=== PATIENT | female | born 1985 | race Caucasian/White ===

== ENCOUNTER 2024-09-11 09:00 | Emergency (ER) | payer OTHER, SELFPAY ==
--- NOTE | ~2024-09-11 | CT_ITS ---
EXAMINATION: CT brain wo con DATE: 09/11/2024 11:11 INDICATION: Migraine headache TECHNIQUE: Computed tomography (CT) of the head was performed without intravenous contrast. Sagittal and coronal reconstructions were performed. The mA was adjusted according to patient size. Iterative reconstruction technique was employed. The dose-length product was 681.00 mGy-cm. COMPARISON: None FINDINGS: No acute intracranial hemorrhage, acute infarction or abnormal extra axial fluid collection. Ventricl es are normal and symmetric. No mass/mass effect. The orbits and mastoid air cells are normal. Mild m ucosal thickening in the paranasal sinuses with likely dependent layering mucus in the left sphenoid sinus. IMPRESSION: 1. Normal brain. 2. Sinus disease dependent mucus in the left sphenoid sinus. Reviewed, dictated and finalized at location A. [employer]
--- OUTSIDE RECORDS SUMMARY | 2024-09-11 09:03 | XMS_ITS | Data Portability ---
Author Organization [facility] Address [address] [place] [address] Care Team Providers Care Developmental Behavioral Physician Name Role Phone BRUCE NOEL Primary Care Provider Unavailab le Assessment Encounter Date Assessment Date Assessment LastModified by Organization Details LastModified Time 11/03/2023 11/03/2023 Recent Labs reviewed on the pt's portal. Not available 11/15/2023 10:22:38 Plan of Treatment Reminders Order Date Submit Date Provider Last Modified By Organization Details Last Modified Time Details Appointments None recorde d. Lab None recorde d. Referral None recorde d. Procedures None recorde d. Surgeries None recorde d. Imaging MRI, brain, w/wo contras t - Errol snyder obtaine d on peer to peer discuss ion. errol snyder # [phone] good 07/20 through 01/16/25 Dx code R51.9 2023 024 [email or web address] [facility], [address], [address] [address], [place], [address], 5 12:27:34 Medication Orders Zepboun d 2.5 mg/0.5 mL subcuta neous pen injecto r 2023 [facility]24 [facility] [address] [facility], [place], [address], 4 14:51:31 metroni dazole 0.75 % topical cream 2023 [facility] [address] [place], [address], 4 15:17:19 Patient TargetsNo targets recorded. Patient Instructions Encounter Date Encounter Id Patient Instructions Last Modified By Organization Details Last Modified Time 11/03/2023 [id number] A healthy lifestyle: care instructions Not available 11/15/2023 10:22:21 Reason for Referral None Reported. Problems Name Problem SNOMED Code Status Onset Date Resolution Date Notes Provider Name and Address Organization Details Recorded Time Polycystic ovary syndrome 580939197 Active 2023 LIAT Schwarz Attn: Accountin g,[address], [place], [address], [facility] 4 10:22:52 Attention deficit hyperactivity disorder 331220659 Active 2023 LIAT Schwarz Attn: Accountin g,[address] [facility], [place], [address], [place] - [facility] 4 10:22:54 Hypothyroidism 63493445 Active 2023 LIAT Schwarz Attn: Accountin g,[address], [place], [address], [place] [facility] 4 10:22:55 Bipolar II disorder 72003945 Active 2023 LIAT Schwarz Attn: Accountin g,[address], [place], [address], [place] - [facility] 4 10:22:56 Mood disorder 30963805 Active 2023 LIAT Schwarz Attn: Accountin g,[address], [place], [address], [place] [facility] 4 10:22:58 Long-term drug therapy Active 2023 LIAT Schwarz Attn: Accountin g,[address], [place], [address], [place] [facility] 4 10:22:59 Obesity 605443484 Active 2023 LIAT Schwarz Attn: Accountin g,[address], [place], [address], [place] [facility] 4 10:23:01 Body mass index 40+ - severely obese 919470890 Active 2023 LIAT Schwarz Attn: Accountin g,[address], [place], [address], [place] - [facility] 4 10:23:02 Headache disorder 365429567 Active 2023 LIAT Schwarz Attn: Accountin g,[address], [place], [address], [place] [facility] 4 15:51:29 Congenital hydrocephalus 78240976 Active 2023 LIAT Schwarz Attn: Accountin g,[address] [facility], [place], [address], [place] - [facility] 4 15:51:30 Problem Notes None recorded. Procedures Surgical History Date Name Laterality Status Provider Name and Address Organization Details Recorded Time Eye Surgery completed Sean asif [place] - [facility] 11/03/2023 17:18:15 LEEP completed Sean Cervantes [place] - [facility] 11/03/2023 17:18:20 Imaging Results None recorded. Procedure Notes None recorded. Medical Equipment None Reported. Allergies Allergen ID Allergen Name Allergen Category Reaction Reaction Severity Criticality Documentation Date Start Date Code Code System Note Provider Name and Address Organization Details Recorded Time 022599 Product containin g penicilli n and antibioti c (product) medicatio n Not available Not available Not available 11/03/2023 50833 05 SNOMED Not Available Not Available Not Available 360585 guaifenes in / pseudoeph edrine medicatio n Not available Not available Not available 11/03/2023 24887 9 RxNorm Not Available Not Available Not Available Medications Name Sig Start Date Stop Date Status Note LastModified by Organization Details LastModified Time vitamin d3 (tom) 50mcg cap TAKE 2 CAPSULES BY MOUTH IN THE MORNING active Not Available Not Available No t Available lamotrigin e 150 mg tablet TAKE 1 TABLET BY MOUTH EVERY DAY AT BEDTIME FOR 30 DAYS 11/02 completed Not Available Not Available Not Available lamotrigin e 200 mg tablet Take 1 tablet twice a day by oral route. active ONCE daily Not Available Not Available Not Available cetirizine 10 mg tablet Take 1 tablet every day by oral route for 90 days. active Not Available Not Available No t Available azithromyc in 250 mg tablet 11/02 completed Not Available Not Available Not Available fluconazol e 150 mg tablet TAKE 1 TABLET BY MOUTH ONCE DAILY DIRECTED FOR 1 DAY 07/20 completed Not Available Not Available Not Available Synthroid 100 mcg tablet Take 1 tablet every day by oral route. active Not Available Not Available No t Available sertraline 100 mg tablet Take 1 tablet every day by oral route. 07/20 completed Not Available Not Available Not Available phentermin e 37.5 mg tablet TAKE 1 TABLET BY MOUTH EVERY DAY 11/02 completed Not Available Not Available Not Available ciprofloxa los 500 mg tablet TAKE 1 TABLET BY MOUTH EVERY 12 HOURS 07/20 completed Not Available Not Available Not Available sulfametho xazole 800 mg-trimeth oprim 160 mg tablet 07/20 completed Not Available Not Available Not Available liothyroni ne 5 mcg tablet twice daily 07/20 completed Not Available Not Available Not Available doxycyclin e monohydrat e 100 mg tablet Take 1 tablet every 12 hours by oral route for 7 days. active Not Available Not Available No t Available triamcinol one acetonide 0.1 % topical cream APPLY CREAM TOPICALLY TO THE AFFECTED AREAS OF NOSE TWICE DAILY 07/20 completed Not Available Not Available Not Available alprazolam 0.25 mg tablet TAKE 1 TABLET BY MOUTH TWICE DAILY NEEDED 07/20 completed Not Available Not Available Not Available dextroamph etamine-am phetamine ER 20 mg 24hr capsule,ex tend release TAKE 1 CAPSULE BY MOUTH IN THE MORNING FOR 30 DAYS 07/20 completed Not Available Not Available Not Available cyanocobal alexis (vit B-12) 1,000 mcg/mL injection solution INJECT 1 ML SUBCUTANE OUS IN THE MORNING EVERY WEEK active Not Available Not Available No t Available oseltamivi r 75 mg capsule TAKE 1 CAPSULE BY MOUTH TWICE DAILY FOR 5 DAYS 11/02 completed Not Available Not Available Not Available ferrous sulfate 325 mg (65 mg iron) tablet TAKE 1 TABLET BY MOUTH EVERY DAY AT 12PM 11/02 completed Not Available Not Available Not Available buspirone 10 mg tablet Take 1 tablet 3 times a day by oral route as needed for 90 days. active Not Available Not Available No t Available metronidaz ole 0.75 % topical cream APPLY A THIN LAYER TO THE nose daily as needed active Not Available Not Available No t Available lidocaine HCl 2 % mucosal solution SWISH, GARGLE, AND SPIT 5ML FOUR TIMES DAILY NEEDED FOR PAIN 11/02 completed Not Available Not Available Not Available dextroamph etamine-am phetamine ER 10 mg 24hr capsule,ex tend release TAKE 1 CAPSULE BY MOUTH IN THE MORNING 07/20 completed Not Available Not Available Not Available ergocalcif nivia (vitamin D2) 1,250 mcg (50,000 unit) capsule TAKE 1 CAPSULE BY MOUTH EVERY WEEK DIRECTED 11/02 completed Not Available Not Available Not Available cefdinir 300 mg capsule TAKE 1 CAPSULE BY MOUTH TWICE DAILY FOR 7 DAYS 07/20 completed Not Available Not Available Not Available methylphen idate ER 18 mg tablet,ext ended release 24 hr TAKE 1 TABLET BY MOUTH IN THE MORNING FOR 30 DAYS 07/20 completed Not Available Not Available Not Available metformin ER 500 mg tablet,ext ended release 24 hr TAKE 1 TABLET BY MOUTH ONCE DAILY WITH SUPPER 07/20 completed Not Available Not Available Not Available sertraline 50 mg tablet TAKE 1/2 TABLET BY MOUTH FOR 1 WEEK, THEN TAKE 1 TABLET DAILY 11/02 completed Not Available Not Available Not Available methylphen idate ER 36 mg tablet,ext ended release 24 hr TAKE 1 TABLET BY MOUTH ONCE DAILY IN THE MORNING 07/20 completed Not Available Not Available Not Available spironolac tone 50 mg tablet TAKE 2 TABLETS BY MOUTH IN THE MORNING active Not Available Not Available No t Available atomoxetin e 25 mg capsule TAKE 1 CAPSULE BY MOUTH EVERY MORNING X 1 WEEK, THEN INCREASE TO 40MG 11/02 completed Not Available Not Available Not Available atomoxetin e 40 mg capsule TAKE 1 CAPSULE BY MOUTH EVERY DAY IN THE MORNING 07/20 completed Not Available Not Available Not Available nitrofuran toin monohydrat e/macrocry stals 100 mg capsule TAKE 1 CAPSULE BY MOUTH EVERY 12 HOURS 07/20 completed Not Available Not Available Not Available Janine-D 24 Hour 180 mg-240 mg tablet,ext ended release TAKE 1 TABLET BY MOUTH ONCE DAILY 11/02 completed Not Available Not Available Not Available atomoxetin e 80 mg capsule 07/20 completed Not Available Not Available Not Available atomoxetin e 100 mg capsule Take 1 capsule every day by oral route. 07/20 completed Not Available Not Available Not Available desvenlafa xine succinate ER 50 mg tablet,ext ended release 24 hr TAKE 1 TABLET BY MOUTH ONCE DAILY 07/20 completed Not Available Not Available Not Available desvenlafa xine succinate ER 100 mg tablet,ext ended release 24 hr Take by oral route for 90 days. active Not Available Not Available No t Available BD Insulin Syringe Ultra-Fine 1 mL 31 gauge x 5/16 INJECT B12 UNDER THE SKIN ONCE WEEKLY X 90 DAYS active Not Available Not Available No t Available vitamin D3 2,000 unit-folic acid 1 mg tablet Take by oral route. 11/02 completed Not Available Not Available Not Available Qelbree 200 mg capsule,ex tended release Take 1 capsule every day by oral route for 90 days. active Not Available Not Available No t Available Wegovy 1 mg/0.5 mL subcutaneo us pen injector INJECT 1 MG SUBCUTANE OUSLY WEEKLY DIRECTED 11/02 completed Not Available Not Available Not Available Wegovy 0.5 mg/0.5 mL subcutaneo us pen injector INJECT THE CONTENTS OF 1 PEN UNDER THE SKIN ONCE WEEKLY 11/02 completed Not Available Not Available Not Available Zepbound 5 mg/0.5 mL subcutaneo us pen injector Inject 5 mg every week by subcutane ous route. 07/20 completed Not Available Not Available Not Available Zepbound 2.5 mg/0.5 mL subcutaneo us pen injector 2.5mg sq weekly dosing 07/20 completed Not Available Not Available Not Available Zepbound 7.5 mg/0.5 mL subcutaneo us pen injector Inject by subcutane ous route for 28 days. 2023 active Not Available Not Available Not Avai lable Vitals Date Recorded Body height Respiratory rate Body mass index (BMI) Body weight Oxygen saturation Oxygen saturation in Arterial blood by Pulse oximetry Heart rate Systolic blood pressure Diastolic blood pressure Provider Name and Address Organization Details Last Updated DateTime 4 157.48 cm 18 /min 40.1 kg/m2 91044.7 3 g 99 % 99 % 98 /min 128 mm[Hg] 88 mm[Hg] Sean Cervantes MA [facility] 10:56:37 Date Recorded Systolic blood pressure Diastolic blood pressure Provider Name and Address Organization Details Last Updated DateTime 11/03/2023 120 mm[Hg] 80 mm[Hg] LIAT Schwarz Attn: Accounting,[address] [place], [address], [facility] 11/03/2023 11:31:45 Date Recorded Body height Body mass index (BMI) Body weight Respiratory rate Oxygen saturation Oxygen saturation in Arterial blood by Pulse oximetry Heart rate Systolic blood pressure Diastolic blood pressure Provider Name and Address Organization Details Last Updated DateTime 4 157.48 cm 47.4 kg/m2 848806. 42 g 18 /min 99 % 99 % 96 /min 126 mm[Hg] 82 mm[Hg] Sean Cervantes MA [facility] 14:56:00 Date Recorded Systolic blood pressure Diastolic blood pressure Provider Name and Address Organization Details Last Updated DateTime 07/20/2024 120 mm[Hg] 80 mm[Hg] LIAT Schwarz Attn: Accounting,[address] [place], [address], [facility] 07/20/2024 15:20:02 Social History Question Answer Notes LastModified by Organizat ion Details LastModified Time Tobacco Smoking Status Former Smoker Sean Cervantes MA [facility], [facility] 11/03/2023 10:51:37 Do You Have An Advance Directive? No Information not available 11/03/2023 What Is Your Level Of Alcohol Consumption? Occasional Information not available 11/03/2023 Are You Blind Or Do You Have Difficulty Seeing? No Glasses Information not available 11/03/2023 What Is Your Level Of Caffeine Consumption? Moderate Information not available 11/03/2023 In The 14 Days Before Symptom Onset, Have You Had Close Contact With A Laboratory-confi rmed COVID-19 While That Case Was Ill? No Information not available 11/03/2023 In The 14 Days Before Symptom Onset, Have You Had Close Contact With A Person Who Is Under Investigation For COVID-19 While That Person Was Ill? No Information not available 11/03/2023 Have You Been To An Area Known To Be High Risk For COVID-19? No Information not available 11/03/2023 Are You Currently Employed? Yes Information not available 11/03/2023 Are You Deaf Or Do You Have Serious Difficulty Hearing? No Information not available 11/03/2023 What Type Of Diet Are You Following? 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 No Information not available 11/03/2023 What Was The Date Of Your Most Recent Tobacco Screening? 07/20/2024 Information not available 07/20/2024 What Is Your Current Pack Years? 10packyears Information not available 11/03/2023 Do You Use Your Seat Belt Or Car Seat Routinely? Yes Information not available 11/03/2023 Do You Have Smoke And Carbon Monoxide Detectors In Your Home? Yes Information not available 11/03/2023 At What Age Did You Start Smoking Tobacco? 15 Information not available 11/03/2023 How Much Tobacco Do You Smoke? No Information not available 11/03/2023 Do You Feel Stressed (tense, Restless, Nervous, Or Anxious, Or Unable To Sleep At Night)? [id number] Information not available 11/03/2023 Do You Use Any Illicit Or Recreational Drugs? No Former- Thc Information not available 11/03/2023 Do You Use Sunscreen Routinely? Yes Information not available 11/03/2023 Has Tobacco Cessation Counseling Been Provided? No Information not available 11/03/2023 How Many Years Have You Smoked Tobacco? 10 Information not available 11/03/2023 Do You Or Have You Ever Used Any Other Forms Of Tobacco Or Nicotine? No Information not available 11/03/2023 Sex: Female Functional Status Question Answer Note LastModified by Organizat ion Details LastModified Time Are you able to care for yourself? Yes Information not available 11/03/2023 What is your exercise level? Occasional Information not available 11/03/2023 Mental Status None recorded. Family History Relationship Description Onset Age of this Age Resolved Age Notes LastModified by Organization Details LastModified Time Mother Depressive disorder [email or web address] Not available 2023 17:18:35 Mother Disorder of thyroid gland tcarterma Not available 2023 17:18:43 Mother Hypertensive disorder tcarterma Not available 2023 17:18:49 Mother Migraine tcarterma Not availabl e 11/03/2023 17:18:57 Sister Depressive disorder tcarterma Not available 2023 17:18:35 Sister Disorder of thyroid gland tcarterma Not available 2023 17:18:43 Medical History Condition Response Coronary Artery Disease N Other N High Blood Pressure N Atrial Fibrillation N Kidney or Bladder Problems N Thyroid Problems Y GI Problems N Depression Y COPD N Blood Clots N Skin Problems N Anemia N Heart Attack ([place]) N Anxiety Disorder Y Diabetes N Muscle, Joint, or Bone Problems N Seizures/Epilepsy N Acid Reflux (GERD) N Cancer N Stroke N Asthma Y Allergies Y High Cholesterol N Hepatitis N Liver Disease N Headaches N Heart Failure N Osteoporosis N Gynecological History Statement/Question Response Flow Moderate Date of LMP 10/05/2023 Menses Monthly Y Duration of Flow (days) 5 Current Control Method None LMP Definite Obstetrics History GPAL:G 0 P 0 0 0 0 Immunizations Vaccine Type Date Status Note Provider Nam e and Address Organization Details Recorded Time Influenza, split virus, quadrivalent, preservative 8 completed Sean Cervantes [place] null, [place] - [facility] 07/20/2024 14:49:57 Tdap 12/12/201 5 completed Sean Cervantes MA [facility] 07/20/2024 14:49:57 Past Encounters Encounter ID Performer Location Encounter Start Date Encounter Closed Date Diagnosis/Indication Diagnosis SNOMED-CT Code Diagnosis ICD10 Code Diagnosis Note [id number] LIAT Schwarz [facility] [employer] [address] [place] [address] 11/03/2023 10:38:42 11/03/2023 11:33:36 Adult health examination 648960063 Z00.01 new patient wellness exam completed Polycystic ovary syndrome 567411457 E28.2 managed with diet, exercise, and remote hx of GLP injectable therapy. Attention deficit hyperactivity disorder 064278043 F90.9 stable on atomoxetin e 100mg daily with jean murcia. Hypothyroidism 55461674 E03.9 UTD on labs and stable on synthroid 100mcg daily and liothyroni ne 5mcg bid. managed by Endocrine. Long-term drug therapy 317172930 Z79.899 all labs are currently UTD with endocrine. Body mass index 40+ - severely obese 217626617 Z68.41 start zepbound injectable therapy as directed with titration up as tolerated per new monthly orders. no personal or family hx of Medullary thyroid cancer or MEN conditions . Obesity 159703003 E66.9 discussed healthy diet, exercise, controllin g carbohydra sharri and added sugars in the diet Mood disorder 59931537 F 39 stable on lamictal 200mg bid and sertraline 100mg daily. managed by jean hess Bipolar II disorder 8322 5003 F31.81 stable on lamictal 200mg bid. managed by psychiatrclaudy hess [id number] LIAT Schwarz [facility] [employer] [address] [place] [address] 07/20/2024 14:33:43 07/20/2024 15:57:16 Congenital hydrocephalus 18997524 Q03.9 hx of congenital hydrocepha jay, pt was told she has shunt. Headache disorder 841946 009 R51.9 hx of hydrocepha jay. shunt in place. Vomiting 304470660 R11.1 0 Two episodes of vomiting with headache thus far since the headache disorder has developed. Erythematous rash 250123 004 R21 trial of metronidaz ole cream to the nose area daily to see if this is rosacea related. Health Concerns Section Related Observation LastModified by Organization Detai ls LastModified Time None Recorded Concern Status LastModified by Organization Details LastModified Time None Recorded Advance Directives Directive N: Payers Encounter Date Sequence Insurance Name Policy Number Policy Patiño Covered Member ID Patiño Member ID Guarantor Name 11/03/2023 1 [facility] [id number] Alka Albert [id number] 2 Alka Albert 07/20/2024 1 [facility] [id number] Alka Albert [id number] Alka Albert Notes Date Note Type Note Provider Name and Address Organization Details Recorded Time 11/03/2023 text/html Asthma F/UReport ed bypatient.Notes:stable . no c/o. only acts up with acute illness. uses albuterol then PRNGeneric HPI TemplateReported bypatient.Notes:PCOS hx. Lost 80 pounds , most weight loss was on mounjaro, then wegovy and then insurance stopped covering so she's been off medication since March last year. She just cannot lose weight and she's gained 20 pounds. working out 1.5 hours several times a week and diet is very consistent and mindful of carbs, sugars, calories.ThyroidReport ed bypatient.Notes:on dual supplement therapy with Dr. Dowling (endocrine). Synthroid and liothyronine Bipolar /mood disorder: managed on medications from psychiatrist. routine f/u. she is feeling stable on her regimen without complaints. ADHD hx: pt is taking atomoxetine therapy for non-stimulant option therapy. LIAT Schwarz Attn: Accounting[address] [place], [address], [place] [facility] 11/15/2023 10:23:16 07/20/2024 text/html HeadacheReported bypatient.Notes:migrai anisha, States that she has never had them has been having reoccurring migraines alot lately, No pressure in eyes. More in the top of her head/ some nausea w it, She can take otc meds and nothing has helped, has vomited 2x with it. Patient reports that she had congenital hydrocephalus and she thinks the shunt was placed but she is not sure if she still has the shunt. She is concerned because of the daily headaches that she has now been having for several weeks. Episode of vomiting with it has been more concerning she is here for evaluation and for MRI testing to be ordered LIAT Schwarz Attn: Accounting,[address] [facility], [place], [address], [facility] 08/02/2024 15:53:21 OBGyn Episode No OBEpisode recorded.
--- OUTSIDE RECORDS SUMMARY | 2024-09-11 09:03 | XMS_ITS ---
Author Organization [facility] Address [address] [facility] [address] [facility] [address] [place] [address] Care Team Providers Care Gold Beater Name Role Phone Yudy Georges Primary Care Provider Malika Abreu Unavailable [phone] REASON FOR VISIT RE:[employer] Medications Medication SIG (Take, Route, Frequency, Duration) Notes Start Date End Date Status Desvenlafaxine ER 100 MG 1 tablet once a day for 7 days, 0.5 tablet once a day for 14 days Orally for 21 days tapering off Active Social History Sex Assigned At : Social History Observation Description Sex Assigned At Female Encounters Encounter Location Date Provider Diagnosis [facility] [employer] [facility] [address] [facility] [facility] [address] [address] 09/02/2024 Malika Slaughter Major depressive disorder, recurrent, mild F33.0 Assessments Encounter Date Diagnosis (ICD Code) Assessment Notes Treatment Notes Treatment Clinical Notes Section Notes 09/02/2024 Major depressive disorder, recurrent, mild (ICD-10 - F33.0) Plan Of Treatment Medication Medication Name Sig Start Date Stop Date Notes Desvenlafaxine ER 100 MG 1 tablet once a day for 7 days, 0.5 tablet once a day for 14 days Orally for 21 days Next Appt Details Provider Name:Malika danielson, 09/27/2024 03:45:00 PM, [address], [address], [place], [address], Progress Notes * OLYA GONZALEZ:1985 (39 yo F)Acc No.[id number]:09/02/2024 Patient: MAGDALENA NAVARRETE :1985 A ge:39 Y S ex:Female Address:[address] [place] [address] * Refills Refill Desvenlafaxine ER Tablet Extended Release 24 Hour, 100 MG, Orally, 14 tablet, 1 tablet once a day for 7 days, 0.5 tablet once a day for 14 days, 21 days, Refills=0 * true * Date: Generated for Desmond mcmillan/Stacie/Indigoitting on: 0 09/11/2024 09:02 AM ACCOUNTANT [employer]
--- OUTSIDE RECORDS SUMMARY | 2024-09-11 09:03 | XMS_ITS ---
Author Organization [facility] Address [address] [place] [address] Care Team Providers Care Carry Out Clerk Name Role Phone Priscila Dowling Primary Care Provider REASON FOR VISIT Med Check Encounters Encounter Location Date Provider Diagnosis [facility] - Priscila Dowling [address] [place] [address] 07/08/2024 Priscila Dowling Plan Of Treatment No Information Progress Notes * BETY AlkaDOB:1985 (39 yo F)Acc No.[id number]:07/08/2024 Progress Notes Patient: Alka NAVARRETE Provider: Bradley Dowling MD :1985 A ge:39 Y S ex:Female Date:07/08/2024 Phone: Address:[address] [place] [address] [address] [id number] Subjective: * Chief Complaints: * 1 . Med Check. * Medical History: Objective: * Vitals: Assessment: Plan: * Treatment: * Billing Information: * Visit Code: * Procedure Codes: * Electronic signature of Kang Dowling MD on 09/11/2024 at 09:02 AM ULTRASOUND TECHNOL Sign off status: Pending * Provider: Bradley Dowling MD Date: 1 09/08/2023 Generated for Desmond mcmillan/Stacie/Indigoitting on: 0 09/11/2024 09:02 AM ULTRASOUND TECHNOL
--- OUTSIDE RECORDS SUMMARY | 2024-09-11 09:03 | XMS_ITS ---
Author Organization [facility] Address [address] [place] [address] Care Team Providers Care Admissions Recruiter Name Role Phone Priscila Dowling Primary Care Provider REASON FOR VISIT RE:Reschedule Encounters Encounter Location Date Provider Diagnosis [facility] - Priscila Dowling [address] [place] [address] 07/04/2024 Priscila Dowling Plan Of Treatment No Information Progress Notes * Alka ALBERTDOB:1985 (39 yo F)Acc No.[id number]:07/04/2024 Patient: Alka NAVARRETE :1985 A ge:39 Y S ex:Female Phone: Address:[address] [place] [address] [place] [address] * true * Date: Generated for Nikunji hipolito/Fanissag/eTransmitting on: 0 09/11/2024 09:03 AM NON DESTRUCTIVE EVALUATION MANAGER
--- OUTSIDE RECORDS SUMMARY | 2024-09-11 09:03 | XMS_ITS | Data Portability ---
Author Organization [facility] Address [address] [place] [address] [place] [address] Care Team Providers Care Agricultural Extension Specialist Name Role Phone BRUCE NOEL Primary Care Provider [phone] Assessment Encounter Date Assessment Date Assessment LastModified by Organization Details LastModified Time 11/21/2022 11/21/2022 Annual gynecological exam performed. Patient will come back in a year unless there are new symptoms. [email or web address] Not available 11/21/2022 11:50:45 11/24/2023 11/24/2023 Annual gynecological exam performed. Patient will come back in a year unless there are new symptoms. [email or web address] Not available 11/24/2023 16:22:15 Plan of Treatment Reminders Order Date Submit Date Provider Last Modified By Organization Details Last Modified Time Details Appointments None recorded. Lab urinalysis , dipstick 2023 024 [email or web address] [address], [address], [place], [address], 16:15:10 Referral None recorded. Procedures None recorded. Surgeries None recorded. Imaging None recorded. Medication Orders Cipro 500 mg tablet 2023 024 [email or web address] [facility], [place], [address], 4 16:36:06 Patient TargetsNo targets recorded. Patient InstructionsNo instructions recorded. Reason for Referral None Reported. Results Created Date Observation Date Name Description Value Unit Range Abnormal Flag Note LastModifiedBy Organization Detail LastModifiedTime 11/22/19 23 11/21/2022 IMAGE GUIDE D PAP AND HPV REGAR DLESS image guided Pap, HPV regardless of Pap result SEE RESULT S BELOW abnormal CASE REPOR T: Cytol ogy Gynec ologi lyle Repor t Case: [id number] Autho misbah saunders Provi kale: Flower steven , Estela Haines cted: 11/21 1421 CADET DECK Order ing Locat ion: [place] Patho logy Recei emma: 11/24 0749 First Scree n: Na Mcmillan ay, CT Patho logis t: Oneil Tovar rd, MD Speci men: Rhea camargo Pap - Image d, Cervi x STATE MENT OF ADEQU ACY: Satis facto ry for evalu ation Trans forma tion zone compo nent prese nt FINAL DIAGN OSIS: Epith elial Cell Abnor malit y, Squam ous Cell: Atypi lyle Squam ous Cells of Undet ermin ed Signi antonio ce (ASC- US). Elect kyung mendez mary grace d by Oneil Tovar rd, MD on 2022 at 10:25 AM ----- ----- ----- ----- ----- ----- ----- ----- ----- ----- ----- ----- ----- ----- ----- ----- ----- ---- HPV RESUL TS: HPV mRNA E6/E7 : No HPV mRNA Detec maria elena NOTE: This high risk HPV mRNA assay detec ts fourt een high- risk HPV types (16, 18, 31, 33, 35, 39, 45, 51, 52, 56, 58, 59, 66, 68) witho ut diffe renti ation . COMME NT: This speci men was revie wed by a Cytot echno logis t and/o r Patho logis t (as indic ated in this repor t) after evalu ation using the Thinp rep Imagi ng Syste m. CLINI LYLE INFOR MATIO N: Menst rual Statu s: LMP (if appli cable ): Clini lyle Histo ry/Pr eviou s Pap: Type of Neopl dragan (if appli cable ): Signi fican t Clini lyle Findi ngs: Other Histo ry: Hormo anisha (if appli cable ): FANNY GILES FOLLO W-UP: Follo w up as warra nted, based on curre nt guide lines and indiv idual patie nt consi derat ions. Not Available [facility] (Lab) [address], [place], [address], 11/27/2022 11:28:08 11/22/19 23 11/21/2022 TRICH OMONA S VAGIN HANG (RRNA ) trichomonas vaginalis ribosomal RNA (rrna) Negati ve negati ve Not Available [facility] (Lab) [address], [place], [address], 11/27/2022 11:28:09 11/22/19 23 11/21/2022 CT/GC (DIONNE) , THINP REP VIAL chlamydia trachomatis, PCR Negati ve negati ve Not Available [facility] (Lab) [address], [place], [address], 11/27/2022 11:28:10 11/22/19 23 11/21/2022 CT/GC (DIONNE) , THINP REP VIAL neisseria gonorrhoeae, PCR Negati ve negati ve Not Available [facility] (Lab) [address], [place], [address], 11/27/2022 11:28:10 11/25/19 24 11/25/2023 IMAGE GUIDE D PAP AND HPV REGAR DLESS image guided Pap, HPV regardless of Pap result SEE RESULT S BELOW CASE REPOR T: Cytol ogy Gynec ologi lyle Repor t Case: [id number] Autho misbah saunders Provi kale: Nasim Cooley Colle cted: 11/24 0852 CADET DECK Order ing Locat ion: [place] Patho logy Recei emma: 11/25 0940 First Scree n: Noelis ni, Moham ed, CT Patho logis t: Silas Ayala MD Speci men: Scree mary jo Pap - Image d, Cervi x STATE MENT OF ADEQU ACY: Satis facto ry for evalu ation Trans forma tion zone compo nent prese nt FINAL DIAGN OSIS: Negat mickey for Intra epith elial Lesio n or Umair huggins (NIL) . Funga l organ isms morph ologi cain consi stent with Ashley da spp. Elect nadiyakalin mendez mary grace d by Silas Ayala MD on 024 at 12:21 PM ----- ----- ----- ----- ----- ----- ----- ----- ----- ----- ----- ----- ----- ----- ----- ----- ----- ---- HPV RESUL TS: HPV mRNA E6/E7 : No HPV mRNA Detec maria elena NOTE: This high risk HPV mRNA assay detec ts fourt een high- risk HPV types (16, 18, 31, 33, 35, 39, 45, 51, 52, 56, 58, 59, 66, 68) witho ut diffe renti ation . COMME NT: This speci men was revie wed by a Cytot echno logis t and/o r Patho logis t (as indic ated in this repor t) after evalu ation using the Thinp rep Imagi ng Syste m. CLINI LYLE INFOR MATIO N: Menst rual Statu s: LMP (if appli cable ): 024 Clini lyle Histo ry/Pr eviou s Pap: Type of Neopl dragan (if appli cable ): Signi fican t Clini lyle Findi ngs: Other Histo ry: Hormo anisha (if appli cable ): PAP EDUCA LATOYA L NOTE: The Pap Test is a scree mary jo test with an inher ent false negat mickey rate. Liqui d-bas ed sampl ing may decre ase, but will not elimi ric, false negat mickey resul ts. A negat mickey resul t does not precl ude the prese nce and/o r devel opmen t of disea se, since the prese nce of abnor mal cells in the sampl e depen ds on the locat ion of the lesio n and sampl ing techn ique. Heron nued regul ar scree mary jo is the best metho d of cance r preve ntion . If repor maria elena cytol ogic findi ng do not corre late with physi lyle and/o r histo rical findi ngs, furth er inves tigat ion is recom lloyd d, as clini cain brothers nted. Not Available [facility] ([facility]) [address], [place], [address], 12/02/2023 13:25:07 11/25/19 24 11/25/2023 TRICH OMONA S VAGIN HANG (RRNA ) trichomonas vaginalis ribosomal RNA (rrna) Negati ve negati ve Not Available [facility] ([facility]) [address], [place], [address], 12/02/2023 13:25:08 11/25/19 24 11/25/2023 CT/GC (DIONNE) , THINP REP VIAL chlamydia trachomatis, PCR Negati ve negati ve Not Available [facility] ([facility]) [address], [place], [address], 12/02/2023 13:25:08 11/25/19 24 11/25/2023 CT/GC (DIONNE) , THINP REP VIAL neisseria gonorrhoeae, PCR Negati ve negati ve Not Available [facility] ([facility]) [address], [place], [address], 12/02/2023 13:25:08 06/24/20 24 06/24/2024 CT/GC AND TRICH OMONA S VAGIN HANG (RRNA ), URINE chlamydia trachomatis, PCR Negati ve negati ve Not Available [facility] ([facility]) [address], [place], [address], 06/25/2024 13:11:18 06/24/20 24 06/24/2024 CT/GC AND TRICH OMONA S VAGIN HANG (RRNA ), URINE neisseria gonorrhoeae, PCR Negati ve negati ve Not Available [facility] ([facility]) [address], [place], [address], 06/25/2024 13:11:18 06/24/20 24 06/24/2024 CT/GC AND TRICH OMONA S VAGIN HANG (RRNA ), URINE trichomonas vaginalis ribosomal RNA (rrna) Negati ve negati ve Not Available [facility] ([facility]) [address], [place], [address], 06/25/2024 13:11:18 06/24/20 24 06/24/2024 CULTU RE: URINE result report SEE RESULT S BELOW Test: Cultu re: Urine Speci men Sourc e: Urine - Clean Catch Speci men Type: Urine Speci men Date: 06/24 1537 Resul t Date: 06/25 2250 Resul t Statu s: Final resul t Abnor mal: No Resul ting Lab: [facility] [address] [facility] [address] Tel: CULTU RE ----- ----- ----- --- No growt h in 1 day (dete ction level of 10,00 0 colon ies / ml.) Not Available [facility] ([facility]) [address], [place], [address], 06/25/2024 23:54:25 06/24/20 24 06/24/2024 urina lysis , dipst ick Leukocytes + Not Available [address], [place], [address], 06/24/2024 16:14:49 06/24/20 24 06/24/2024 urina lysis , dipst ick Protein + Not Available [address], [place], [address], 06/24/2024 16:14:49 06/24/20 24 06/24/2024 urina lysis , dipst ick pH 6 Not Available [facility] [address], [place], [address], 06/24/2024 16:14:49 06/24/20 24 06/24/2024 urina lysis , dipst ick Blood +++ Not Available [facility] [address], [place], [address], 06/24/2024 16:14:49 06/24/20 24 06/24/2024 urina lysis , dipst ick Specific [place] 1.030 Not Available [facility] [address], [place], [address], 06/24/2024 16:14:49 06/24/20 24 06/24/2024 urina lysis , dipst ick Ketone + Not Available [facility] [address], [place], [address], 06/24/2024 16:14:49 Result Notes None recorded. Problems Name Problem SNOMED Code Status Onset Date Resolution Date Notes Provider Name and Address Organization Details Recorded Time Mixed anxiety and depressive disorder 540407150 Active 2023 Stephany unger [facility] 4 16:26:23 Problem Notes None recorded. Procedures Surgical History Date Name Laterality Status Provider Name and Address Organization Details Recorded Time 2023 Date of Last Pap Smear completed Stephany Sullivan [facility] 4 16:27:00 2013 loop electrosurgical excision procedure of cervix completed Genoveva Macedo [facility] 3 12:08:49 2013 Colposcopy completed Stephany Sullivan [facility] 4 16:29:19 2005 Ndl oculoelectromyography 1+ completed Genoveva Macedo [facility] 3 12:09:48 2003 extraction of wisdom tooth completed Stephany Sullivan [facility] 4 16:29:32 Imaging Results None recorded. Procedure Notes None recorded. Medical Equipment None Reported. Allergies Allergen ID Allergen Name Allergen Category Reaction Reaction Severity Criticality Documentation Date Start Date Code Code System Note Provider Name and Address Organization Details Recorded Time latex environme nt,medica tion Not available Not available Not available 11/21/2022 39180 91 RxNorm Genoveva unger [facility] 3 12:01:03 80192 Mobic medicatio n Not available Not available Not available 11/21/2022 33592 9 RxNorm Genoveva unger, [facility] 3 12:01:09 Medications Name Sig Start Date Stop Date Status Note LastModified by Organization Details LastModified Time vitamin d3 (tom) 50mcg cap TAKE 2 CAPSULES BY MOUTH IN THE MORNING active Not Available Not Available No t Available metformin 500 mg tablet Take 1 tablet twice a day by oral route. 11/23 completed Not Available Not Available Not Available lamotrigine 200 mg tablet TAKE 1 TABLET BY MOUTH AT BEDTIME active Not Available Not Available No t Available cetirizine 10 mg tablet TAKE 1 TABLET BY MOUTH IN THE MORNING active Not Available Not Available No t Available azithromyci n 250 mg tablet 11/23 completed Not Available Not Available Not Available fluconazole 150 mg tablet TAKE 1 TABLET BY MOUTH ONCE DAILY DIRECTED FOR 1 DAY 06/24 completed Not Available Not Available Not Available liothyronin e 25 mcg tablet Take 2 tablets twice a day by oral route. 06/24 completed Not Available Not Available Not Available Synthroid 100 mcg tablet active Not Available Not Available Not Available sertraline 100 mg tablet active Not Available Not Available Not Available phentermine 37.5 mg tablet TAKE 1 TABLET BY MOUTH EVERY DAY 06/24 completed Not Available Not Available Not Available ciprofloxac in 500 mg tablet TAKE 1 TABLET BY MOUTH EVERY 12 HOURS active Not Available Not Available No t Available sulfamethox azole 800 mg-trimetho prim 160 mg tablet TAKE 1 TABLET BY MOUTH TWICE DAILY FOR 3 DAYS 06/24 completed Not Available Not Available Not Available liothyronin e 5 mcg tablet 06/24 completed Not Available Not Available Not Available triamcinolo ne acetonide 0.1 % topical cream APPLY CREAM TOPICALLY TO THE AFFECTED AREAS OF NOSE TWICE DAILY active Not Available Not Available No t Available alprazolam 0.25 mg tablet TAKE 1 TABLET BY MOUTH TWICE DAILY NEEDED active Not Available Not Available No t Available dextroamphe tamine-amph etamine ER 20 mg 24hr capsule,ext end release TAKE 1 CAPSULE BY MOUTH IN THE MORNING FOR 30 DAYS 06/24 completed Not Available Not Available Not Available cyanocobala min (vit B-12) 1,000 mcg/mL injection solution INJECT 1 ML SUBCUTANE OUSLY ONCE A WEEK IN THE MORNING active Not Available Not Available No t Available oseltamivir 75 mg capsule TAKE 1 CAPSULE BY MOUTH TWICE DAILY FOR 5 DAYS 11/23 completed Not Available Not Available Not Available ferrous sulfate 325 mg (65 mg iron) tablet TAKE 1 TABLET BY MOUTH EVERY DAY AT 12PM active Not Available Not Available No t Available buspirone 10 mg tablet active Not Available Not Available Not Available lidocaine HCl 2 % mucosal solution SWISH, GARGLE, AND SPIT 5ML FOUR TIMES DAILY NEEDED FOR PAIN active Not Available Not Available No t Available dextroamphe tamine-amph etamine ER 10 mg 24hr capsule,ext end release TAKE 1 CAPSULE BY MOUTH IN THE MORNING 06/24 completed Not Available Not Available Not Available Lamictal 150 mg tablet Take 1 tablet twice a day by oral route. 11/23 completed Not Available Not Available Not Available ergocalcife rol (vitamin D2) 1,250 mcg (50,000 unit) capsule TAKE 1 CAPSULE BY MOUTH EVERY WEEK DIRECTED 11/23 completed Not Available Not Available Not Available cefdinir 300 mg capsule TAKE 1 CAPSULE BY MOUTH TWICE DAILY FOR 7 DAYS 06/24 completed Not Available Not Available Not Available methylpheni date ER 18 mg tablet,exte nded release 24 hr TAKE 1 TABLET BY MOUTH IN THE MORNING FOR 30 DAYS 06/24 completed Not Available Not Available Not Available metformin ER 500 mg tablet,exte nded release 24 hr TAKE 1 TABLET BY MOUTH EVERY DAY WITH DINNER 06/24 completed Not Available Not Available Not Available sertraline 50 mg tablet TAKE 1/2 TABLET BY MOUTH FOR 1 WEEK, THEN TAKE 1 TABLET DAILY 11/23 completed Not Available Not Available Not Available methylpheni date ER 36 mg tablet,exte nded release 24 hr TAKE 1 TABLET BY MOUTH ONCE DAILY IN THE MORNING active Not Available Not Available No t Available spironolact one 50 mg tablet TAKE 2 TABLETS BY MOUTH IN THE MORNING active Not Available Not Available No t Available atomoxetine 25 mg capsule TAKE 1 CAPSULE BY MOUTH EVERY MORNING X 1 WEEK, THEN INCREASE TO 40MG 11/23 completed Not Available Not Available Not Available atomoxetine 40 mg capsule TAKE 1 CAPSULE BY MOUTH EVERY DAY IN THE MORNING 06/24 completed Not Available Not Available Not Available vitamin C81-oxqan acid injection solution Take by injection route. active Not Available Not Available No t Available nitrofurant oin monohydrate /macrocryst als 100 mg capsule TAKE 1 CAPSULE BY MOUTH EVERY 12 HOURS 06/24 completed Not Available Not Available Not Available Janine-D 24 Hour 180 mg-240 mg tablet,exte nded release TAKE 1 TABLET BY MOUTH ONCE DAILY active Not Available Not Available No t Available Vitamin D 11/23 completed Not Available Not Available Not Available Synthroid 88mcg 06/24 completed Not Available Not Available Not Available atomoxetine 80 mg capsule 06/24 completed Not Available Not Available Not Available atomoxetine 100 mg capsule 06/24 completed Not Available Not Available Not Available desvenlafax ine succinate ER 50 mg tablet,exte nded release 24 hr TAKE 1 TABLET BY MOUTH ONCE DAILY 06/24 completed Not Available Not Available Not Available desvenlafax ine succinate ER 100 mg tablet,exte nded release 24 hr active Not Available Not Available Not Available BD Insulin Syringe Ultra-Fine 1 mL 31 gauge x 5/16 INJECT B12 UNDER THE SKIN ONCE WEEKLY X 90 DAYS 11/23 completed Not Available Not Available Not Available Qelbree 200 mg capsule,ext ended release TAKE 1 CAPSULE BY MOUTH ONCE DAILY active Not Available Not Available No t Available Wegovy 1 mg/0.5 mL subcutaneou s pen injector INJECT 1 MG SUBCUTANE OUSLY WEEKLY DIRECTED 11/23 completed Not Available Not Available Not Available Wegovy 11/23 completed Not Available Not Available Not Available Zepbound 5 mg/0.5 mL subcutaneou s pen injector INJECT 5MG SUB-Q ONCE A WEEK 06/24 completed Not Available Not Available Not Available Zepbound 2.5 mg/0.5 mL subcutaneou s pen injector INJECT 1 SYRINGE ONCE A WEEK 06/24 completed Not Available Not Available Not Available Zepbound 7.5 mg/0.5 mL subcutaneou s pen injector INJECT 7.5MG SUB-Q ONCE A WEEK active Not Available Not Available No t Available Vitals Date Recorded Body height Body mass index (BMI) Body weight Provider Name and Address Organization Details Last Updated DateTime 11/21/2022 157.48 cm 42.3 kg/m2 159783.84 g Genoveva Macedo [facility] 11/21/2022 12:00:43 Date Recorded Systolic blood pressure Diastolic blood pressure Provider Name and Address Organization Details Last Updated DateTime 11/21/2022 130 mm[Hg] 74 mm[Hg] Terri Granado, [facility]- [address], [place], [address], [facility] 11/21/2022 12:29:18 Date Recorded Body height Body mass index (BMI) Body weight Systolic blood pressure Diastolic blood pressure Provider Name and Address Organization Details Last Updated DateTime 11/24/2023 157.48 cm 40.1 kg/m2 75612.73 g 122 mm[Hg] 78 mm[Hg] Stephany Sullivan [facility] 16:22:36 Date Recorded Body height Body mass index (BMI) Body weight Systolic blood pressure Diastolic blood pressure Provider Name and Address Organization Details Last Updated DateTime 06/24/2024 157.48 cm 46.3 kg/m2 753775.8 7 g 134 mm[Hg] 80 mm[Hg] Ailyn Femi [facility] 15:58:24 Social History Question Answer Notes LastModified by Organizat ion Details LastModified Time Tobacco Smoking Status Never Smoker Genoveva Macedo null, [facility] 11/21/2022 12:08:12 What Is Your Level Of Alcohol Consumption? Occasional Information not available 11/21/2022 How Many Years Have You Consumed Alcohol? 20 [email or web address] Information not available 11/24/2023 Are You Blind Or Do You Have Difficulty Seeing? No [email or web address] Information not available 11/24/2023 What Is Your Level Of Caffeine Consumption? Moderate [email or web address] Information not available 11/24/2023 How Much Tobacco Do You Chew? None Information not available 11/24/2023 In The 14 Days Before Symptom Onset, Have You Had Close Contact With A Laboratory-confir med COVID-19 While That Case Was Ill? No Information not available 11/21/2022 In The 14 Days Before Symptom Onset, Have You Had Close Contact With A Person Who Is Under Investigation For COVID-19 While That Person Was Ill? No Information not available 11/21/2022 Have You Been To An Area Known To Be High Risk For COVID-19? No Information not available 11/21/2022 Are You Deaf Or Do You Have Serious Difficulty Hearing? No [email or web address] Information not available 11/24/2023 What Type Of Diet Are You Following? REGULAR [email or web address] Information not available 11/24/2023 Which Illicit Or Recreational Drugs Have You Used? Marijuana Nightly Information not available 11/21/2022 What Is The Highest Grade Or Level Of School You Have Completed Or The Highest Degree You Have Received? [id number] [email or web address] Information not available 11/24/2023 What Is Your Occupation? [employer] [email or web address] Information not available 11/24/2023 Are There Any Guns Present In Your Home? Yes [email or web address] Information not available 11/24/2023 Have You Ever Been Counseled For Unhealthy Alcohol Use? No Information not available 11/21/2022 Do You Use Protection During Sex? No [email or web address] Information not available 11/24/2023 Do You Use Your Seat Belt Or Car Seat Routinely? Yes [email or web address] Information not available 11/24/2023 Do You Have Smoke And Carbon Monoxide Detectors In Your Home? Yes [email or web address] Information not available 11/24/2023 At What Age Did You Start Smoking Tobacco? 16 [email or web address] Information not available 11/24/2023 How Much Tobacco Do You Smoke? No [email or web address] Information not available 11/24/2023 Do You Feel Stressed (tense, Restless, Nervous, Or Anxious, Or Unable To Sleep At Night)? [id number] [email or web address] Information not available 11/24/2023 Do You Use Any Illicit Or Recreational Drugs? No Information not available 11/24/2023 Do You Use Sunscreen Routinely? Yes [email or web address] Information not available 11/24/2023 Has Tobacco Cessation Counseling Been Provided? No Information not available 11/21/2022 How Many Years Have You Smoked Tobacco? 0 [email or web address] Information not available 11/24/2023 Have You Used IV Drugs? No Information not available 11/21/2022 Do You Or Have You Ever Used Any Other Forms Of Tobacco Or Nicotine? No Information not available 11/21/2022 Sex: Female Functional Status Question Answer Note LastModified by Organizat ion Details LastModified Time Do you have difficulty walking or climbing stairs? No [email or web address] Information not available 11/24/2023 Are you able to care for yourself? Yes [email or web address] Information n ot available 11/24/2023 Do you have difficulty dressing or bathing? No [email or web address] Information not available 11/24/2023 What is your exercise level? Moderate [email or web address] Information not available 11/24/2023 Mental Status None recorded. Family History Relationship Description Onset Age of this Age Resolved Age Notes LastModified by Organization Details LastModified Time Mother Hypercholest erolemia [email or web address] Not available 11/02 12:05:31 Mother Hypertensive disorder [email or web address] Not available 11/02 12:05:44 Mother Psychotic disorder [email or web address] Not available 2023 15:41:46 Mother Disorder of thyroid gland [email or web address] Not available 11/02 12:07:25 Sister Hypercholest erolemia [email or web address] Not available 11/02 12:05:53 Sister Infertile [email or web address] Not availab le 06/24/2024 15:41:46 Sister Psychotic disorder [email or web address] Not available 2023 15:41:46 Sister Disorder of thyroid gland [email or web address] Not available 11/02 12:07:25 Maternal Grandmother Psychotic disorder [email or web address] Not available 2023 15:41:46 Maternal Grandmother Disorder of thyroid gland [email or web address] Not available 11/02 12:07:25 Maternal Uncle Psychotic disorder [email or web address] Not available 2023 15:41:46 Medical History Condition Response Allergies (Food, seasonal, environmental ) Y Other N Breast Cancer N Drug/Latex Allergies/Reactions Y Blood Transfusion N Dermatologic Disorders N Lung Disease N Defects or Inherited Disease N Breast Problem N Gestational Diabetes N Hematologic disorders N Anesthesia Complications N History of STI Y Deep Vein Thrombosis N Polycystic ovary syndrome Y Anxiety Disorder Y Autoimmune disease N Arthritis N Infertility Y Polyps N Acid Reflux (GERD) N History of abnormal pap Y Cancer N Stroke N Varicosities N Neurologic/Epilepsy Y Endometriosis N High Cholesterol N Headaches Y Fibromyalgia N Kidney Disease N Heart Problems N Kidney or Bladder Problems N Thyroid Problems Y GI Problems N Eating Disorder N Anemia N Art (IVF or FET) N Psychiatric Illness Y Ovarian Cancer N Diabetes N Pulmonary (TB, Asthma) N Hepatitis/Liver Disease N Eczema N Urinary Tract Infection N Abuse/Domestic Violence N Asthma Y Trauma/Violence N Depression/ depression Y Heart Disease N Pre-Eclampsia N Hypertension N Osteoporosis N Thrombophilias N Gynecological History Statement/Question Response Date of Last Mammogram Flow Moderate Date of LMP 06/13/2024 N Was last menstrual period normal Y STIs/STDs Y None Desired Control Method None Abnormal Pap Yes On BCP's at Conception? N HPV Vaccine N Colposcopy Duration of Flow (days) 5 Current Control Method None Are cycles usually normal Y Frequency of Cycle (Q days) 28 Sexually Active? Y Menses Monthly Y Date of DEXA bone scan Age of first menstrual cycle 13 Date of Last Pap Smear 11/24/2023 Sexual Problems? N LMP Definite N Obstetrics History GPAL:G 0 P 0 0 0 0 Type Value Living 0 Total 0 Past Encounters Encounter ID Performer Location Encounter Start Date Encounter Closed Date Diagnosis/Indication Diagnosis SNOMED-CT Code Diagnosis ICD10 Code Diagnosis Note [id number] Terri Friedtenisha [facility] [address],[place] [address] 11/21/2022 11:48:41 11/21/2022 12:31:44 Gynecologic examination 36654102 Z01.419 Take Calcium with Vitamin D 1200mg daily if not receiving in daily diet. It is strongly advised to have an annual flu shot and up can obtain at most pharmacies . If you have not had a TDap shot in the last 10 years you should obtain one as well. Discussed with patient & provided with informatio n regarding Gardisil vaccine to prevent the 4 strains for HPV that cause cervical cancer if under age 26. Encourage safe sexual practices, to use condoms and limit partners if not already in a monogamous relationsh ip. Do monthly self breast exams. Have mammogram yearly or every other year depending on family history. BRCA testing is now available for patients with strong genetic history of female cancer. If interested contact the office. Engage in daily exercise of low impact aerobic exercise 45-60 minutes 4-5 times weekly. Avoid tobacco and illicit drugs as well as using moderation with alcohol intake less than 1-2 8 oz beverages daily. This lifestyle behavior pattern will lead to less health conditions and longer life span. If BMI greater than 25 weight watchers or dietary consult advised. Patient received above instructio ns, and questions have been answered. If you have any questions please call or respond to this email. Patient was made aware of the patient portal and may obtain a paper copy of today's plan if desired.Pa p/hpv sent STD Screen sent Genetic Screen discussed Colon Screen na Dexa Screen na Routine Labs PCPMammo na [id number] Terri Granado , [facility] [address],[facility] [place] [address] 11/24/2023 16:03:15 11/24/2023 16:47:14 Gynecologic examination [id number] Z01.419 Z11.51 Take Calcium with Vitamin D 1200mg daily if not receiving in daily diet. It is strongly advised to have an annual flu shot and up can obtain at most pharmacies . If you have not had a TDap shot in the last 10 years you should obtain one as well. Discussed with patient & provided with informatio n regarding Gardisil vaccine to prevent the 4 strains for HPV that cause cervical cancer if under age 26. Encourage safe sexual practices, to use condoms and limit partners if not already in a monogamous relationsh ip. Do monthly self breast exams. Have mammogram yearly or every other year depending on family history. BRCA testing is now available for patients with strong genetic history of female cancer. If interested contact the office. Engage in daily exercise of low impact aerobic exercise 45-60 minutes 4-5 times weekly. Avoid tobacco and illicit drugs as well as using moderation with alcohol intake less than 1-2 8 oz beverages daily. This lifestyle behavior pattern will lead to less health conditions and longer life span. If BMI greater than 25 weight watchers or dietary consult advised. Patient received above instructio ns, and questions have been answered. If you have any questions please call or respond to this email. Patient was made aware of the patient portal and may obtain a paper copy of today's plan if desired.Pa p/hpv sentSTD Screen sentGeneti c Screen discussedC olon Screen [facility]a [facility] [id number] MD [place] [address] [address] 06/24/2024 15:41:34 06/24/2024 16:38:34 Urinary symptoms [id number] R39.9 . 39-year-ol d female with suprapubic pain and dysuria. She also reports some urgency. Patient has a history urinary tract infection. We agreed to treat for urinary tract infection. Her urine dip today is positive. We will send her urine for culture. We talked about the antibiotic s that she has to be treated with. She understand s the risks, benefits, and alternativ es. She understand s the instructio ns and the precaution s. Health Concerns Section Related Observation LastModified by Organization Detai ls LastModified Time None Recorded Concern Status LastModified by Organization Details LastModified Time None Recorded Advance Directives Directive None Recorded Payers Encounter Date Sequence Insurance Name Policy Number Policy Patiño Covered Member ID Patiño Member ID Guarantor Name 11/21/2022 1 [facility]: (PPO) [id number] Alka Albert [id number] Alka Albert 11/24/2023 1 [facility] [id number] Bert Albert [id number] Alka Albert 06/24/2024 1 [facility] [id number] Bert Albert [id number] Alka Albert Notes Date Note Type Note Provider Name and Address Organization Details Recorded Time 11/21/2022 text/html Annual GYNReport ed bypatient.History: no gynecologic complaints Menstrual cycle:Normal menses Urinary symptoms:No hematuria; No incontinence Vulva:No genital lesion Vagina:Normal vaginal discharge Breast:No breast pain; No breast lump; No nipple discharge Current Contraception:Ankit h control not practiced Sexual complaints:No sexual complaints; No pain during intercourse; Normal libido Menopausal Symptoms:No menopausal symptoms; Normal vaginal lubrication Psychological symptoms:No depression; No anxiety; No PMDD Preventive measures:Encourage self breast examination; Encourage regular exercise; Encourage no tobacco use; Encourage regular mammograms starting age 40; History of abnormal pap smear/cervical dysplasia Terri Granado [facility] [address], [place], [address], [facility] 11/21/2022 12:30:55 11/24/2023 text/html Annual GYNReport ed bypatient.History: no gynecologic complaints Menstrual cycle:Normal menses Urinary symptoms:No hematuria; No incontinence Vulva:No genital lesion Vagina:Normal vaginal discharge Breast:No breast pain; No breast lump; No nipple discharge Current Contraception:Ankit h control not practiced Sexual complaints:No sexual complaints; No pain during intercourse; Normal libido Menopausal Symptoms:No menopausal symptoms; Normal vaginal lubrication Psychological symptoms:No depression; No anxiety; No PMDD Preventive measures:Encourage self breast examination; Encourage regular exercise; Encourage no tobacco use; Encourage regular mammograms starting age 40; Followed with yearly pap smears; History of abnormal pap smear[facility]cervical dysplasia [facility] [address], [place], [address], [facility] 11/24/2023 16:36:26 06/24/2024 text/html . 39-year-old female with suprapubic pain and dysuria. She also reports some urgency. Patient has a history urinary tract infection. We agreed to treat for urinary tract infection. Her urine dip today is positive. We will send her urine for culture. We talked about the antibiotics that she has to be treated with. She understands the risks, benefits, and alternatives. She understands the instructions and the precautions. Yoav Lane MD [address], [place], [address], [facility] 06/24/2024 16:38:05 OBGyn Episode No OBEpisode recorded.
--- OUTSIDE RECORDS SUMMARY | 2024-09-11 09:03 | XMS_ITS | Patient Health Record ---
Author Organization [facility] Address [address] [address] Care Team Providers Care Associate Marketing Manager Name Role Phone NiteshPriscila Primary Care Provider [phone] Migration, Provider Unavailable Unavailable Results Component Value Reference Range Notes COMPREHENSIVE METABOLIC PANE L Reviewed date:10/02/2023 08:35:36 AM Interpretation: Performing Lab:[facility], [address] [place], [address] Marshall Moreno MD Notes/Report: T3, FREE Reviewed date:10/01/2023 12:54:59 PM Interpretation: Performing Lab:[facility], [address] [place], [address] Marshall Moreno MD Notes/Report: HEMOGLOBIN A1c Reviewed date:10/01/2023 12:53:29 PM Interpretation: Performing Lab:[facility], [address] [place], [address] Marshall Moreno MD Notes/Report: CBC (INCLUDES DIFF/PLT) Reviewed date:10/01/2023 12:54:43 PM Interpretation: Performing Lab:[facility], [address], [address] Marshall Moreno MD Notes/Report: T4, FREE Reviewed date:10/01/2023 12:53:52 PM Interpretation: Performing Lab:[facility], [address], [address] Marshall Moreno MD Notes/Report: TSH Reviewed date:10/01/2023 12:53:40 PM Interpretation: Performing Lab:[facility], [address], [place], [address] Marshall Moreno MD Notes/Report: DEXAMETHASONE Reviewed date:01/17/2024 02:20:17 PM Interpretation: Performing Lab:[facility],, [address] [place], [address] Cheyenne Powell MD,PhD,TRELL Notes/Report: FASTING:YES FASTING: YES DEXAMETHASONE 264 Reference Ranges for Dexamethasone: Baseline: Less than 20 ng/dL 1 mg dexamethasone overnight: 180-550 ng/dL (8:00-10:00 AM) This test was developed and its analytical performance characteristics have been determined by [facility]. It has not been cleared or approved by FDA. This assay has been validated pursuant to the CLIA regulations and is used for clinical purposes. CORTISOL, TOTAL Reviewed date:01/17/2024 02:20:01 PM Interpretation: Performing Lab:[facility], [address], [place], [place], [address] Marshall Mroeno MD Notes/Report: FASTING:YES FASTING: YES COMPREHENSIVE METABOLIC PANE L Reviewed date:01/27/2024 09:51:12 AM Interpretation: Performing Lab:[facility], [address], [place], [place], [address] Marshall Moreno MD Notes/Report: FASTING:YES FASTING: YES HEMOGLOBIN A1c Reviewed date:01/17/2024 02:11:50 PM Interpretation: Performing Lab:[facility], [address] , [place], [address] Marshall Moreno Notes/Report: FASTING:YES FASTING: YES CBC (INCLUDES DIFF/PLT) Reviewed date:01/27/2024 09:51:27 AM Interpretation: Performing Lab:[facility], [address], [place], [address] Marshall Moreno MD Notes/Report: FASTING:YES FASTING: YES LIPID PANEL Reviewed date:01/27/2024 09:50:49 AM Interpretation: Performing Lab:[place], [facility], [address], [address] Marshall Moreno MD Notes/Report: FASTING:YES FASTING: YES T4, FREE Reviewed date:01/27/2024 09:51:36 AM Interpretation: Performing Lab:[facility], [address] [place], [address] Marshall Moreno MD Notes/Report: FASTING:YES FASTING: YES TSH Reviewed date:01/27/2024 09:51:45 AM Interpretation: Performing Lab:[facility], [address] [place], [address] Marshall Moreno MD Notes/Report: FASTING:YES FASTING: YES TESTOSTERONE, FREE (DIALYSIS ) AND TOTAL,MS Reviewed date:01/27/2024 12:31:32 PM Interpretation: Performing Lab:[facility], [address] [place] [address], [address], [place], [address] Victorina Smith MD,PhD Notes/Report: FASTING:YES FASTING: YES TESTOSTERONE, TOTAL, MS 35 2-45 ng/dL For additional information, please refer to [email or web address]/[email or web address] (This link is being provided for informational/educational purposes only.) (Note) This test was developed and its analytical performance characteristics have been determined by [facility]. It has not been cleared or approved by the FDA. This assay has been validated pursuant to the CLIA regulations and is used for clinical purposes. TESTOSTERONE, FREE 3.2 0.1-6.4 pg/mL (Note) This test was developed and its analytical performance characteristics have been determined by [facility]. It has not been cleared or approved by the FDA. This assay has been validated pursuant to the CLIA regulations and is used for clinical purposes. [facility] [address] [place] [address],[address] [facility] [address] Victorina Smith MD, PhD Reason For Referral No Information Medications Medication SIG (Take, Route, Frequency, Duration) Notes Start Date End Date Status Liothyronine Sodium 5 MCG 1 tab(s) orally twice a day for 90 days 10/01/2023 Active Desvenlafaxine ER ( SUCCINATE) 50 MG 1 TAB(S) ORALLY ONCE A DAY *Please review and pick correct strength-formulat ion from [employer] options. If intended option is not shown, discontinue and re-order from Quick Search* Active AMPHETAMINE 20 MG 1 TAB(S) ORALLY ONCE A DAY (IN THE MORNING) *Please review for potential replacement for e-prescription and drug interaction check* Active Cyanocobalamin 500 MCG inject 1000 mcg subcutaneously once weekly for 90 days 12/16/2023 Active Zepbound 5 MG/0.5ML inject 5 mg subcutaneously once a week for 90 days 04/05/2024 Active Zepbound 2.5 MG/0.5ML inject 2.5 mg subcutaneously once a week for 30 days 04/05/2024 Active lamoTRIgine 200 MG 1 tab(s) orally 2 times a day for 30 days 09/29/2023 Active Synthroid 100 MCG 1 tab(s) orally once a day for 90 days 01/28/2024 Active Synthroid 112 MCG 1 tab(s) orally once a day for 90 days 01/29/2024 Active D3 50 MCG 1 CAP(S) ORALLY ONCE A DAY for 30 DAYS *Please review and pick correct strength-formulat ion from [employer] options. If intended option is not shown, discontinue and re-order from Quick Search* 09/29/2023 Active Zepbound 2.5 MG/0.5ML as directed subcutaneously once a week Active metFORMIN HCl ER 500 MG 1 tab(s) orally twice a day with meals for 90 days 01/04/2024 Active Sertraline HCl 50 MG 1 tab(s) orally onc e a day for 30 days 09/29/2023 Active Spironolactone 50 MG 2 tablets orally once daily for 90 days 01/04/2024 Active Problems Problem Type SNOMED Code ICD Code Onset Dates Problem Status W/U Status Risk Notes Problem Vitamin D deficiency (83208358) Vitamin D deficiency, unspecified (E55.9) Active confirmed Problem Hypothyroidism (87914005) Hypothyroidism, unspecified (E03.9) Active confirmed Problem Obesity (380147573) Obesity, unspecified (E66.9) Active confirmed Problem Autoimmune thyroiditis (38705846) Autoimmune thyroiditis (E06.3) Active confirmed Problem Polycystic ovarian syndrome (E28.2) Active confirmed Vital Signs Heart Rate 109 /min 04/05/2024 Respiratory Rate 99% /min 09/29/2023 Blood pressure diastolic 83 mm Hg 04/05/2024 Height 62 in 04/05/2024 Blood pressure systolic 128 mm Hg 04/05/2024 Weight 232.0 lbs 04/05/2024 BMI 42.43 kg/m2 04/05/2024 Encounters Encounter Location Date Provider Diagnosis [facility] [address] [place] [address] 01/04/2024 Priscila Dowling Hypothyroidism, unspecified E03.9 ; Encounter for screening for lipoid disorders Z13.220 ; Polycystic ovarian syndrome E28.2 ; Abnormal weight gain R63.5 and Dietary counseling and surveillance Z71.3 [facility] [address] [place] [address] 04/05/2024 Priscila Dowling Hypothyroidism, unspecified E03.9 ; Polycystic ovarian syndrome E28.2 ; Obesity, unspecified E66.9 ; Vitamin D deficiency, unspecified E55.9 ; Encounter for screening for lipoid disorders Z13.220 and Other fatigue R53.[address] [address] 06/18/2024 Provider Migration Obesity, unspecified E66.9 [facility] [address] [place] [address] 09/29/2023 Priscila Wood Dietary counseling and surveillance Z71.3 ; Polycystic ovarian syndrome E28.2 and Hypothyroidism, unspecified E03.9 [facility] [address] [place] [address] 10/01/2023 Priscila Dowling Hypothyroidism, unspecified E03.9 [facility] [address] [place] [address] 10/02/2023 Priscila Nitesh [facility] [address] [place] [address] 12/16/2023 Priscila Dowling Vitamin B12 deficiency anemia, unspecified D51.9 [facility] [address] [place] [address] 01/27/2024 Priscila Nitesh Hypothyroidism, unspecified E03.9 [facility] [address] [place] [address] 10/09/2023 Priscilaconrado Dowling [facility], [facility] - Priscila [facility] [address] [place] [address] 01/28/2024 Priscila Nitesh Hypothyroidism, unspecified E03.9 [facility] - [place] [employer] [address] [place] [address] 02/02/2024 Priscila Nitesh [facility], [facility] - [place] [employer] [address] [place] [address] 07/03/2024 Priscila Nitesh [facility], [facility] - [facility] [employer] [address] [place] [address] 07/04/2024 Priscila Dowling Assessments Encounter Date Diagnosis (ICD Code) Assessment Notes Treatment Notes Treatment Clinical Notes Section Notes 01/04/2024 Hypothyroidism, unspecified (ICD-10 - E03.9) Continue synthroid 100 mcg daily along with LT3 5 mcg twice daily- needs up dated labwork- will send for thyroid panel to assess need to modify therapy further. 01/04/2024 Encounter for screening for lipoid disorders (ICD-10 - Z13.220) Send for fasting lipid and A1C to screen for dyslipidemia and prediabetes. 04/05/2024 Hypothyroidism, unspecified (ICD-10 - E03.9) continue on synthroid but due to lower normal T4 level okay for patient to uptitrate to 112 mcg daily. She is aware to take with water only and wait one hour to have food/meds / other fluids. 04/05/2024 Polycystic ovarian syndrome (ICD-10 - E28.2) In multiple studies a moderate amount of daily exercise increases levels of IGF-1 binding protein and decreases levels of IGF-1 by 20%. Modest weight loss of 2-5% of total body weight can help restore ovulatory menstrual periods in obese patients with PCOS. A decrease of 300-500 calories daily, along with 150 minutes of exercise per week, can cause ovulation. Patient was encouraged to continue to maintain diet but not to go toward an extreme form of ketogenic diet. Recommended up to 60 grams of carbs a day split into 6 small 10 gram carb meals or three larger 20 gram carb meals in addition to up to 90 grams of protein daily split into 15-20 grams for 5-6 smaller meals. The recommended diet should be one of which she can incorporate on a daily basis that will not modulate her lifestyle- discussed a diet of increased fiber; decreased refined carbohydrates, trans fats, and a saturated fats with focus on monounsaturated fats such as unprocessed chicken, turkey, nuts (excluding peanuts) and beans. Restart GLP1 agonist therapy as patient doesn't tolerate metformin well. Continue spironolactone 100 mg daily as BP in range and patient tolerating well. 09/29/2023 Polycystic ovarian syndrome (ICD-10 - E28.2) Continue spironolactone and kayla - inositol as her most recent levels were in range from Oct-patient due for labwork and will obtain full thyroid panel. She has no hair loss/thinning or hirsutism at this time. WIll focus on diet and insulin sensitizers to maintain her control-she has done remarkably well and has lost over 50 pounds in the past year. 09/29/2023 Dietary counseling and surveillance (ICD-10 - Z71.3) discussed dietary measures in regards to weight loss- importance to restrict calories to 1200 per day if sedentary vs 1600 calories depending on caloric expenditure. She was provided information on [employer] as this program manages metabolic syndrome and products include insulin sensitizers along with thyroid support/supplementat ion to help tailor weight loss in individuals who struggle with underlying autoimmune thyroid conditions and hyperglycemia (fasting glucose of 97 mg/dL). Spent up to 20 minutes discussing alternative weight loss options. 10/01/2023 Hypothyroidism, unspecified (ICD-10 - E03.9) 12/16/2023 Vitamin B12 deficiency anemia, unspecified (ICD-10 - D51.9) 01/27/2024 Hypothyroidism, unspecified (ICD-10 - E03.9) 01/28/2024 Hypothyroidism, unspecified (ICD-10 - E03.9) 01/04/2024 Polycystic ovarian syndrome (ICD-10 - E28.2) Restart metformin ER 500 mg daily with largest meal along with spironolactone 100 mg daily as she has noted more weight gain and hair growth on lipline. She has taken previously and tolerated well. She was just restarted on zepbound by PCP and taking 2.5 mg weekly and tolerating well. 04/05/2024 Obesity, unspecified (ICD-10 - E66.9) discussed dietary measures in regards to weight loss- importance to restrict calories to 1200 per day if sedentary vs 3624-4172 calories depending on caloric expenditure. She was provided information on [employer] as this program manages metabolic syndrome and products include insulin sensitizers along with thyroid support/supplementat ion to help tailor weight loss in individuals who struggle with underlying autoimmune thyroid conditions and hyperglycemia (fasting glucose of 97 mg/dL). Spent up to 20 minutes discussing alternative weight loss options. Trial on zepbound 2.5 mg weekly with largest meal x 4 weeks then uptitrate to 5 mg weekly thereafter as tolerated. Recommended GLP1 agonist therapy as she is having trouble at times with cravings of sweets and portion control. She does exercise at least three days a week 45 minutes at a time. Discussed potentially reducing total carb intake to 120 grams daily into 4-5 small split meals with addition of healthy protein based snack at bedtime to help reduce planner hyperglcemia from counterregulatory hormones. She has no history of pancreatitis or medullary thyroid cancer and is willing to trial on a GLP1 agonist therapy. She was advised to contact clinic if she experiences any nausea, vomiting or significant thyroid pain/swelling or abdominal pain so we can discuss and discontinue and potentiually look into other therapy. 06/18/2024 Obesity, unspecified (ICD-10 - E66.9) 09/29/2023 Hypothyroidism, unspecified (ICD-10 - E03.9) Send for thyroid panel to assess need to modify therapy further. 01/04/2024 Abnormal weight gain (ICD-10 - R63.5) Send for DST to screen for hypercortisolism. 04/05/2024 Vitamin D deficiency, unspecified (ICD-10 - E55.9) Send for vitamin D as goal of 50 ng/mL to optimize bone and immune health. 01/04/2024 Dietary counseling and surveillance (ICD-10 - Z71.3) Discussed dietary measures in regards to weight loss- importance to restrict calories to 1200 per day if sedentary vs 2840-6609 calories depending on caloric expenditure. She was provided information on [employer] as this program manages metabolic syndrome and products include insulin sensitizers along with thyroid support/supplementat ion to help tailor weight loss in individuals who struggle with underlying autoimmune thyroid conditions and hyperglycemia (fasting glucose of 97 mg/dL). Spent up to 20 minutes discussing alternative weight loss. 04/05/2024 Encounter for screening for lipoid disorders (ICD-10 - Z13.220) Send for lipid panel. 04/05/2024 Other fatigue (ICD-10 - R53.83) WIll send for thyroid antibodies to screen for autoimmune thyroid disease in adition to CBC, CMP, ferritin, vit D and B12/folate to screen for other potential secondary causes of fatigue. 09/29/2023 Other Spent 25 minute s preparing to see the patient (ex review of tests/chart), obtaining and / or reviewing separately obtained history, performing a medically appropriate examination and/or evaluation, counseling and educating the patient/family/careg iver, ordering medications, tests, or procedures, referring and communicating with other health career based intervention coordinator, documenting clinical information in the electronic or other health record, independently interpreting results and communicating results to the patient/family/careg iver and care coordinating patient plan. Patient alert and oriented x 4 and aware of discussion noted above and in agreeance to plan in management of weight management, hypothyroidism, and PCOS 01/04/2024 Other Spent 25 minute s preparing to see the patient (ex review of tests/chart), obtaining and / or reviewing separately obtained history, performing a medically appropriate examination and/or evaluation, counseling and educating the patient/family/careg iver, ordering medications, tests, or procedures, referring and communicating with other health career based intervention coordinator, documenting clinical information in the electronic or other health record, independently interpreting results and communicating results to the patient/family/careg iver and care coordinating patient plan. Patient alert and oriented x 4 and aware of discussion noted above and in agreeance to plan in management of hypothyroidism, weight management and PCOS. 04/05/2024 Other Spent 25 minute s preparing to see the patient (ex review of tests/chart), obtaining and / or reviewing separately obtained history, performing a medically appropriate examination and/or evaluation, counseling and educating the patient/family/careg iver, ordering medications, tests, or procedures, referring and communicating with other health career based intervention coordinator, documenting clinical information in the electronic or other health record, independently interpreting results and communicating results to the patient/family/careg iver and care coordinating patient plan. Patient alert and oriented x 4 and aware of discussion noted above and in agreeance to plan in management of PCOS, weight management, hypothyroidism and vit D def/fatigue. Plan Of Treatment No Information Insurance Providers Payer Name Payer Address Payer Phone Subscriber Number Group Number Insured Name Patient Relationship to Insured Coverage Start Date Coverage End Date [facility] [address] [place], [place] [address] [phone] [id number] Alka Albert Self - patient is the insured Medical (General) History Medical History History ICD Code Autoimmune thyroiditis E06.3 Polycystic ovarian syndrome E28.2 Obesity, unspecified E66.9
--- OUTSIDE RECORDS SUMMARY | 2024-09-11 09:04 | XMS_ITS | Data Portability ---
Author Organization [facility], Main Office Address [address] [place] [address] Assessment No assessment recorded. Plan of Treatment Reminders Order Date Submit Date Provider Last Modified By Organization Details Last Modified Time Details Appointments None recorded. Lab HbA1c (hemoglobin A1c), blood 2022 023 JOHNTomveyi Bidamon [facility], [address], [address], [place], [address], 3 08:08:06 insulin, serum 2022 023 JOHNTomveyi Bidamon [facility], [address], [place], [address], 3 12:25:57 CMP, serum or plasma 2022 023 JOHNTomveyi Bidamon [facility], [address], [place], [address], 3 08:08:06 TSH + free T4, serum 2022 023 [email or web address] [facility], [address], [place], [address], 3 08:08:06 T3, free, serum or plasma 2022 023 [email or web address] [facility], [address], [place], [address], 3 12:25:58 Referral None recorded. Procedures None recorded. Surgeries None recorded. Imaging US, head + neck, soft tissue - thyroid feels symmetrical ly enlarged but has enlarged left posterior auricular lymph node (has noticed this come and go for 1 year) 2022 [facility] ([facility]), [address], [place], [address], 11:36:35 Medication Orders metformin ER 500 mg tablet,exte nded release 24 hr 2022 [facility] #[id number], [address], [place], [place], [id number], 10:19:15 cyanocobala min (vit B-12) 1,000 mcg/mL injection solution 2022 [facility] #[id number], [address], [place], [place], [id number], 10:15:35 spironolact one 50 mg tablet 2022 [facility] #[id number], [address], [place], [place], [id number], 10:14:29 Vitamin D3 50 mcg (2,000 unit) capsule 2022 [facility] #[id number], [address], [place], [place], [id number], 10:17:00 Wegovy 0.5 mg/0.5 mL subcutaneou s pen injector 2022 [facility] #[id number], [address], [place], [place], [id number], 10:13:55 Patient TargetsNo targets recorded. Patient InstructionsNo instructions recorded. Reason for Referral None Reported. Results Created Date Observation Date Name Description Value Unit Range Abnormal Flag Note LastModifiedBy Organization Detail LastModifiedTime 11/15/19 22 11/14/2021 VITAM IN D 25-HY DROXY vd25oh 25.5 NG/mL 30-100 low Vitam in D Statu s: Defic ient: <20 ng/mL Insuf ficie nt: 20-29 ng/mL Suffi cient : 30-10 0 ng/mL Not Available [facility] (Lab) [address] [place], [address], 11/14/2021 12:42:16 11/15/19 22 11/14/2021 LIPID PANEL cholesterol 195 mg/dL 140-19 9 [facility] VIR[facility] NSUS RECOM MENDA TION FOR LORNA STERO L: ADULT CHILD LOW RISK: <200 <170 BORDE RLINE : <200- 239 ----- HIGH RISK: >240 >200 Not Available [facility] (Lab) [address] [place], [address], 11/14/2021 12:19:30 11/15/19 22 11/14/2021 LIPID PANEL triglyceride s 82 mg/dL 0-150 NIH VIRIDIANA NSUS REPOR T RECOM MENDA TION FOR TRIGL YCERI LINNEA: ADULT CHILD LOW RISK: <150 ----- BODER LINE: 150-1 99 ----- HIGH RISK: >200 ----- Not Available [facility] (Lab) [address] [place], [address], 11/14/2021 12:19:30 11/15/19 22 11/14/2021 LIPID PANEL HDL cholesterol 43 mg/dL 40- Not Available [facility] (Lab) [address] [place] [address], [address], 11/14/2021 12:19:30 11/15/19 22 11/14/2021 LIPID PANEL LDL cholesterol, calculated 136 mg/dL 0-130 high NIH VIRIDIANA NSUS REPOR T RECOM MENDA TIONS FOR LDL: ADULT CHILD LOW RISK <130 <110 (OPTI MAL LDL) <100 ----- ROBYN RLINE : 130-1 59 ----- HIGH RISK: >160 >130 A TRIGL YCERI DE RESUL T >400 INVAL IDATE S THE CALCU LATIO N FOR LDL FRACT IONAT ION - THE LDL RESUL T WILL NOT BE REPOR MARIA ELENA. Not Available [facility] (Lab) [address] [place], [address], 11/14/2021 12:19:30 11/15/19 22 11/14/2021 CBC/C OMPLE TE BLD COUNT W/DIF F white blood cells 7.8 x10'3 /uL 4.2-10 .8 Not Available [facility] (Lab) [address] [place], [address], 11/14/2021 11:52:33 11/15/19 22 11/14/2021 CBC/C OMPLE TE BLD COUNT W/DIF F red blood cells 4.72 x10'6 /uL 3.80-5 .20 Not Available [facility] (Lab) [address] [place], [address], 11/14/2021 11:52:33 11/15/19 22 11/14/2021 CBC/C OMPLE TE BLD COUNT W/DIF F hemoglobin 13.0 g/dL 12.0-1 5.6 Not Available [facility] (Lab) [address] [place], [address], 11/14/2021 11:52:33 11/15/19 22 11/14/2021 CBC/C OMPLE TE BLD COUNT W/DIF F hematocrit 40.8 % 35.7-4 5.7 Not Available [facility] (Lab) [address] [place], [address], 11/14/2021 11:52:33 11/15/19 22 11/14/2021 CBC/C OMPLE TE BLD COUNT W/DIF F mean red cell volume 86.4 fL 82.0-9 9.0 Not Available [facility] (Lab) [address] [place], [address], 11/14/2021 11:52:33 11/15/19 22 11/14/2021 CBC/C OMPLE TE BLD COUNT W/DIF F mean red cell hemoglobin 27.5 pg 27.0-3 3.0 Not Available [facility] (Lab) [address] [place], [address], 11/14/2021 11:52:33 11/15/19 22 11/14/2021 CBC/C OMPLE TE BLD COUNT W/DIF F mean RBC HGB concentratio n 31.9 g/dL 31.0-3 6.0 Not Available [facility] (Lab) [address] [place], [address], 11/14/2021 11:52:33 11/15/19 22 11/14/2021 CBC/C OMPLE TE BLD COUNT W/DIF F red cell distribution width 14.5 % 11.8-1 5.5 Not Available [facility] (Lab) [address] [place], [address], 11/14/2021 11:52:33 11/15/19 22 11/14/2021 CBC/C OMPLE TE BLD COUNT W/DIF F platelets 339 x10'3 /uL 150-40 0 Not Available [facility] (Lab) [address] [place], [address], 11/14/2021 11:52:33 11/15/19 22 11/14/2021 CBC/C OMPLE TE BLD COUNT W/DIF F mean platelet volume 10.4 fL 9.0-12 .4 Not Available [facility] (Lab) [address] [place], [address], 11/14/2021 11:52:33 11/15/19 22 11/14/2021 CBC/C OMPLE TE BLD COUNT W/DIF F neutrophils 59.8 % 39.0-7 2.0 Not Available [facility] (Lab) [address] [place], [address], 11/14/2021 11:52:33 11/15/19 22 11/14/2021 CBC/C OMPLE TE BLD COUNT W/DIF F lymphocytes 32.9 % 16.0-4 7.0 Not Available [facility] (Lab) [address] [place], [address], 11/14/2021 11:52:33 11/15/19 22 11/14/2021 CBC/C OMPLE TE BLD COUNT W/DIF F monocytes 5.3 % 5.0-12 .0 Not Available [facility] (Lab) [address] [place], [address], 11/14/2021 11:52:33 11/15/19 22 11/14/2021 CBC/C OMPLE TE BLD COUNT W/DIF F eosinophils 1.3 % 1.0-7. 0 Not Available [facility] (Lab) [address] [place], [address], 11/14/2021 11:52:33 11/15/19 22 11/14/2021 CBC/C OMPLE TE BLD COUNT W/DIF F basophils 0.4 % 0.0-2. 0 Not Available [facility] (Lab) [address] [place], [address], 11/14/2021 11:52:33 11/15/19 22 11/14/2021 CBC/C OMPLE TE BLD COUNT W/DIF F immature granulocytes 0.3 % 0.00-0 .50 Not Available [facility] (Lab) [address] [place], [address], 11/14/2021 11:52:33 11/15/19 22 11/14/2021 CBC/C OMPLE TE BLD COUNT W/DIF F neutrophils, absolute count 4.65 x10'3 /uL 1.5-8. 0 Not Available [facility] (Lab) [address] [place], [address], 11/14/2021 11:52:33 11/15/19 22 11/14/2021 CBC/C OMPLE TE BLD COUNT W/DIF F lymphocytes, absolute count 2.56 x10'3 /uL 1.07-3 .43 Not Available [facility] (Lab) [address] [place], [address], 11/14/2021 11:52:33 11/15/19 22 11/14/2021 CBC/C OMPLE TE BLD COUNT W/DIF F monocytes, absolute count 0.41 x10'3 /uL 0.29-0 .99 Not Available [facility] (Lab) [address] [place], [address], 11/14/2021 11:52:33 11/15/19 22 11/14/2021 CBC/C OMPLE TE BLD COUNT W/DIF F eosinophils, absolute count 0.10 x10'3 /uL 0.02-0 .53 Not Available [facility] (Lab) [address] [place], [address], 11/14/2021 11:52:33 11/15/19 22 11/14/2021 CBC/C OMPLE TE BLD COUNT W/DIF F basophils, absolute count 0.03 x10'3 /uL 0.01-0 .08 Not Available [facility] (Lab) [address] [place], [address], 11/14/2021 11:52:33 11/15/19 22 11/14/2021 CBC/C OMPLE TE BLD COUNT W/DIF F immature granulocytes ,absolute 0.02 x10'3 /uL 0.00-0 .05 Not Available [facility] (Lab) [address] [place], [address], 11/14/2021 11:52:33 11/15/19 22 11/14/2021 CBC/C OMPLE TE BLD COUNT W/DIF F nucleated red blood cells 0.0 % -0 Not Available [facility] (Lab) [address] [place], [address], 11/14/2021 11:52:33 11/15/19 22 11/14/2021 CBC/C OMPLE TE BLD COUNT W/DIF F NRBC# 0.00 x10'3 /uL Not Available [facility] (Lab) [address] [place], [address], 11/14/2021 11:52:33 03/05/20 22 03/05/2022 TSH thyroid-stim ulating hormone 3.590 uIU/m L 0.465- 4.680 Not Available [facility] (Lab) [address] [place], [address], 03/05/2022 10:34:12 03/05/20 22 03/05/2022 T4 FREE free T4 1.51 NG/dL 0.78-2 .19 Not Available [facility] (Lab) [address] [place], [address], 03/05/2022 10:15:48 03/05/20 22 03/05/2022 COMPR EHENS FABI METAB OLIC PANEL sodium 136 mmol/ L 137-14 5 low Not Available [facility] (Lab) [address] [place], [address], 03/05/2022 10:09:42 03/05/20 22 03/05/2022 COMPR EHENS FABI METAB OLIC PANEL potassium 4.4 mmol/ L 3.5-5. 1 Not Available [facility] (Lab) [address] [place], [address], 03/05/2022 10:09:42 03/05/20 22 03/05/2022 COMPR EHENS FABI METAB OLIC PANEL chloride 103 mmol/ L 98-107 Not Available [facility] (Lab) [address] [place], [address], 03/05/2022 10:09:42 03/05/20 22 03/05/2022 COMPR EHENS FABI METAB OLIC PANEL carbon dioxide 22 mmol/ L 22-30 Not Available [facility] (Lab) [address] [place], [address], 03/05/2022 10:09:42 03/05/20 22 03/05/2022 COMPR EHENS FABI METAB OLIC PANEL anion gap 15.4 mmol/ L 14-22 Not Available [facility] (Lab) [address] [place], [address], 03/05/2022 10:09:42 03/05/20 22 03/05/2022 COMPR EHENS FABI METAB OLIC PANEL glucose 96 mg/dL 70-99 Not Available [facility] (Lab) [address] [place], [address], 03/05/2022 10:09:42 03/05/20 22 03/05/2022 COMPR EHENS FABI METAB OLIC PANEL BUN 7 mg/dL 8-19 low Not Available [facility] (Lab) [address] [place], [address], 03/05/2022 10:09:42 03/05/20 22 03/05/2022 COMPR EHENS FABI METAB OLIC PANEL creatinine 0.78 mg/dL 0.66-1 .25 Not Available [facility] (Lab) [address] [place], [address], 03/05/2022 10:09:42 03/05/20 22 03/05/2022 COMPR EHENS FABI METAB OLIC PANEL GFR >60 Refer ence Range : [place] ge GFR Healt hy Adult : >60 mL/mi n/1.7 3 m2 Chron ic Kidne y Disea se: 15-60 mL/mi n/1.7 3 m2 Kidne y Failu re: <15/m L/min /1.73 m2 www.n iddk. nih.g ov The MDRD study equat ion has not been valid ated in child blanka <18 years of age; pregn ant women ; the elder ly >85 years of age; or in some racia l or ethni c subgr oups, such as Hispa nics. Outsi de the valid ated alisa eters , estim ated GFR is less accur ate, requi ring clini lyle judgm ent on a case- by-ca se basis . Clini lyle inter preta tion for other races and ages must be made by the clini valerie. The MDRD study equat ion has not been valid ated for the evalu ation of serum creat inine relat ed to nutri dale l statu s or medic ation usage . For perso ns <18 years of age, a pedia tric GFR calcu lator is avail able on the [facility] websi te: https ://elsy w.jewels chavez.o rg/pr ofess ional s/kdo qi/gf r_cal culat or Not Available [facility] (Lab) [address] [place], [address], 03/05/2022 10:09:42 03/05/20 22 03/05/2022 COMPR EHENS FABI METAB OLIC PANEL alkaline phosphatase 75 U/L 38-126 Not Available [facility] (Lab) [address] [place], [address], 03/05/2022 10:09:42 03/05/20 22 03/05/2022 COMPR EHENS FABI METAB OLIC PANEL alanine aminotransfe rase 17 U/L 0-35 Not Available [facility] (Lab) [address] [place], [address], 03/05/2022 10:09:42 03/05/20 22 03/05/2022 COMPR EHENS FABI METAB OLIC PANEL aspartate aminotransfe rase 19 U/L 15-37 Not Available [facility] (Lab) [address] [place], [address], 03/05/2022 10:09:42 03/05/20 22 03/05/2022 COMPR EHENS FABI METAB OLIC PANEL bilirubin, total 0.50 mg/dL 0.20-1 .30 Not Available [facility] (Lab) [address] [place], [address], 03/05/2022 10:09:42 03/05/20 22 03/05/2022 COMPR EHENS FABI METAB OLIC PANEL calcium 8.9 mg/dL 8.4-10 .2 Not Available [facility] (Lab) [address] [place], [address], 03/05/2022 10:09:42 03/05/20 22 03/05/2022 COMPR EHENS FABI METAB OLIC PANEL total protein 6.7 g/dL 6.3-8. 2 Not Available [facility] (Lab) [address] [place], [address], 03/05/2022 10:09:42 03/05/20 22 03/05/2022 COMPR EHENS FABI METAB OLIC PANEL albumin 4.0 g/dL 3.4-5. 0 Not Available [facility] (Lab) [address] [place], [address], 03/05/2022 10:09:42 03/05/20 22 03/05/2022 COMPR EHENS FABI METAB OLIC PANEL globulin 2.7 g/dL 2.6-4. 2 Not Available [facility] (Lab) [address] [place], [address], 03/05/2022 10:09:42 03/05/20 22 03/05/2022 COMPR EHENS FABI METAB OLIC PANEL A/G ratio 1.5 ratio 1.0-2. 0 Not Available [facility] (Lab) [address] [place], [address], 03/05/2022 10:09:42 03/05/20 22 03/05/2022 LIPID PANEL cholesterol 193 mg/dL 140-19 9 NIH VIRIDIANA NSUS RECOM MENDA TION FOR LORNA STERO L: ADULT CHILD LOW RISK: <200 <170 BORDE RLINE : <200- 239 ----- HIGH RISK: >240 >200 Not Available [facility] (Lab) [address] [place], [address], 03/05/2022 10:09:39 03/05/20 22 03/05/2022 LIPID PANEL triglyceride s 128 mg/dL 0-150 NIH VIRIDIANA NSUS REPOR T RECOM MENDA TION FOR TRIGL YCERI LINNEA: ADULT CHILD LOW RISK: <150 ----- BODER LINE: 150-1 99 ----- HIGH RISK: >200 ----- Not Available [facility] (Lab) [address] [place], [address], 03/05/2022 10:09:39 03/05/20 22 03/05/2022 LIPID PANEL HDL cholesterol 47 mg/dL 40- Not Available [facility] (Lab) [address] [place], [address], 03/05/2022 10:09:39 03/05/20 22 03/05/2022 LIPID PANEL LDL cholesterol, calculated 120 mg/dL 0-130 NIH VIRIDIANA NSUS REPOR T RECOM MENDA TIONS FOR LDL: ADULT CHILD LOW RISK <130 <110 (OPTI MAL LDL) <100 ----- BORDE RLINE : 130-1 59 ----- HIGH RISK: >160 >130 A TRIGL YCERI DE RESUL T >400 INVAL IDATE S THE CALCU LATIO N FOR LDL FRACT IONAT ION - THE LDL RESUL T WILL NOT BE REPOR MARIA ELENA. Not Available [facility] (Lab) [address] [place], [address], 03/05/2022 10:09:39 03/05/20 22 03/05/2022 CBC/C OMPLE TE BLD COUNT W/DIF F white blood cells 6.1 x10'3 /uL 4.2-10 .8 Not Available [facility] (Lab) [address] [place], [address], 03/05/2022 09:26:20 03/05/20 22 03/05/2022 CBC/C OMPLE TE BLD COUNT W/DIF F red blood cells 4.74 x10'6 /uL 3.80-5 .20 Not Available [facility] (Lab) [address] [facility] [place], [address], 03/05/2022 09:26:20 03/05/20 22 03/05/2022 CBC/C OMPLE TE BLD COUNT W/DIF F hemoglobin 12.8 g/dL 12.0-1 5.6 Not Available [facility] (Lab) [address] [facility] [place], [address], 03/05/2022 09:26:20 03/05/20 22 03/05/2022 CBC/C OMPLE TE BLD COUNT W/DIF F hematocrit 40.8 % 35.7-4 5.7 Not Available [facility] (Lab) [address] [place], [address], 03/05/2022 09:26:20 03/05/20 22 03/05/2022 CBC/C OMPLE TE BLD COUNT W/DIF F mean red cell volume 86.1 fL 82.0-9 9.0 Not Available [facility] (Lab) [address] [place], [address], 03/05/2022 09:26:20 03/05/20 22 03/05/2022 CBC/C OMPLE TE BLD COUNT W/DIF F mean red cell hemoglobin 27.0 pg 27.0-3 3.0 Not Available [facility] (Lab) [address] [place], [address], 03/05/2022 09:26:20 03/05/20 22 03/05/2022 CBC/C OMPLE TE BLD COUNT W/DIF F mean RBC HGB concentratio n 31.4 g/dL 31.0-3 6.0 Not Available [facility] (Lab) [address] [place], [address], 03/05/2022 09:26:20 03/05/20 22 03/05/2022 CBC/C OMPLE TE BLD COUNT W/DIF F red cell distribution width 14.0 % 11.8-1 5.5 Not Available [facility] (Lab) [address] [place], [address], 03/05/2022 09:26:20 03/05/20 22 03/05/2022 CBC/C OMPLE TE BLD COUNT W/DIF F platelets 357 x10'3 /uL 150-40 0 Not Available [facility] (Lab) [address] [place], [address], 03/05/2022 09:26:20 03/05/20 22 03/05/2022 CBC/C OMPLE TE BLD COUNT W/DIF F mean platelet volume 9.3 fL 9.0-12 .4 Not Available [facility] (Lab) [address] [place], [address], 03/05/2022 09:26:20 03/05/20 22 03/05/2022 CBC/C OMPLE TE BLD COUNT W/DIF F neutrophils 57.0 % 39.0-7 2.0 Not Available [facility] (Lab) [address] [place], [address], 03/05/2022 09:26:20 03/05/20 22 03/05/2022 CBC/C OMPLE TE BLD COUNT W/DIF F lymphocytes 34.9 % 16.0-4 7.0 Not Available [facility] (Lab) [address] [place], [address], 03/05/2022 09:26:20 03/05/20 22 03/05/2022 CBC/C OMPLE TE BLD COUNT W/DIF F monocytes 5.6 % 5.0-12 .0 Not Available [facility] (Lab) [address] [place], [address], 03/05/2022 09:26:20 03/05/20 22 03/05/2022 CBC/C OMPLE TE BLD COUNT W/DIF F eosinophils 2.0 % 1.0-7. 0 Not Available [facility] (Lab) [address] [place], [address], 03/05/2022 09:26:20 03/05/20 22 03/05/2022 CBC/C OMPLE TE BLD COUNT W/DIF F basophils 0.3 % 0.0-2. 0 Not Available [facility] (Lab) [address] [place], [address], 03/05/2022 09:26:20 03/05/20 22 03/05/2022 CBC/C OMPLE TE BLD COUNT W/DIF F immature granulocytes 0.2 % 0.00-0 .50 Not Available [facility] (Lab) [address] [place], [address], 03/05/2022 09:26:20 03/05/20 22 03/05/2022 CBC/C OMPLE TE BLD COUNT W/DIF F neutrophils, absolute count 3.47 x10'3 /uL 1.5-8. 0 Not Available [facility] (Lab) [address] [place], [address], 03/05/2022 09:26:20 03/05/20 22 03/05/2022 CBC/C OMPLE TE BLD COUNT W/DIF F lymphocytes, absolute count 2.12 x10'3 /uL 1.07-3 .43 Not Available [facility] (Lab) [address] [place], [address], 03/05/2022 09:26:20 03/05/20 22 03/05/2022 CBC/C OMPLE TE BLD COUNT W/DIF F monocytes, absolute count 0.34 x10'3 /uL 0.29-0 .99 Not Available [facility] (Lab) [address] [place], [address], 03/05/2022 09:26:20 03/05/20 22 03/05/2022 CBC/C OMPLE TE BLD COUNT W/DIF F eosinophils, absolute count 0.12 x10'3 /uL 0.02-0 .53 Not Available [facility] (Lab) [address] [place], [address], 03/05/2022 09:26:20 03/05/20 22 03/05/2022 CBC/C OMPLE TE BLD COUNT W/DIF F basophils, absolute count 0.02 x10'3 /uL 0.01-0 .08 Not Available [facility] (Lab) [address] [place], [address], 03/05/2022 09:26:20 03/05/20 22 03/05/2022 CBC/C OMPLE TE BLD COUNT W/DIF F immature granulocytes ,absolute 0.01 x10'3 /uL 0.00-0 .05 Not Available [facility] (Lab) [address] [place], [address], 03/05/2022 09:26:20 03/05/20 22 03/05/2022 CBC/C OMPLE TE BLD COUNT W/DIF F nucleated red blood cells 0.0 % -0 Not Available [facility] (Lab) [address] [place], [address], 03/05/2022 09:26:20 03/05/20 22 03/05/2022 CBC/C OMPLE TE BLD COUNT W/DIF F NRBC# 0.00 x10'3 /uL Not Available [facility] (Lab) [address] [place], [address], 03/05/2022 09:26:20 09/25/1909/25/2022 TSH thyroid-stim ulating hormone 3.110 uIU/m L 0.465- 4.680 Not Available [facility] (Lab) [address] [place], [address], 09/25/2022 20:47:16 09/25/1909/25/2022 VITAM IN D 25-HY DROXY vd25oh 28.7 NG/mL 30-100 low Vitam in D Statu s: Defic ient: <20 ng/mL Insuf ficie nt: 20-29 ng/mL Suffi cient : 30-10 0 ng/mL Not Available [facility] (Lab) [address] [place], [address], 09/25/2022 20:46:06 09/25/1909/25/2022 T3 FREE free T3 2.9 pg/mL 2.77-5 .27 Not Available [facility] (Lab) [address] [place], [address], 09/25/2022 20:17:20 09/25/19 23 09/25/2022 T4 FREE free T4 1.65 NG/dL 0.78-2 .19 Not Available [facility] (Lab) [address] [place], [address], 09/25/2022 20:17:18 09/25/1909/25/2022 LIPID PANEL cholesterol 178 mg/dL 140-19 9 NIH VIRIDIANA NSUS RECOM MENDA TION FOR LORNA STERO L: ADULT CHILD LOW RISK: <200 <170 BORDE RLINE : <200- 239 ----- HIGH RISK: >240 >200 Not Available [facility] (Lab) [address] [place], [address], 09/25/2022 20:05:15 09/25/19 23 09/25/2022 LIPID PANEL triglyceride s 73 mg/dL 0-150 NIH VIRIDIANA NSUS REPOR T RECOM MENDA TION FOR TRIGL YCERI LINNEA: ADULT CHILD LOW RISK: <150 ----- BODER LINE: 150-1 99 ----- HIGH RISK: >200 ----- Not Available [facility] (Lab) [address] [place], [address], 09/25/2022 20:05:15 09/25/19 23 09/25/2022 LIPID PANEL HDL cholesterol 53 mg/dL 40- Not Available [facility] (Lab) [address] [place], [address], 09/25/2022 20:05:15 09/25/1909/25/2022 LIPID PANEL LDL cholesterol, calculated 110 mg/dL 0-130 NIH VIRIDIANA NSUS REPOR T RECOM MENDA TIONS FOR LDL: ADULT CHILD LOW RISK <130 <110 (OPTI MAL LDL) <100 ----- BORDE RLINE : 130-1 59 ----- HIGH RISK: >160 >130 A TRIGL YCERI DE RESUL T >400 INVAL IDATE S THE CALCU LATIO N FOR LDL FRACT IONAT ION - THE LDL RESUL T WILL NOT BE REPOR MARIA ELENA. Not Available [facility] (Lab) [address] [place], [address], 09/25/2022 20:05:15 09/25/1909/25/2022 COMPR EHENS FABI METAB OLIC PANEL sodium 134 mmol/ L 137-14 5 low Not Available [facility] (Lab) [address] [place], [address], 09/25/2022 20:05:13 09/25/19 23 09/25/2022 COMPR EHENS FABI METAB OLIC PANEL potassium 4.4 mmol/ L 3.5-5. 1 Not Available [facility] (Lab) [address] [place], [address], 09/25/2022 20:05:13 09/25/19 23 09/25/2022 COMPR EHENS FABI METAB OLIC PANEL chloride 101 mmol/ L 98-107 Not Available [facility] (Lab) [address] [place], [address], 09/25/2022 20:05:13 09/25/19 23 09/25/2022 COMPR EHENS FABI METAB OLIC PANEL carbon dioxide 24 mmol/ L 22-30 Not Available [facility] (Lab) [address] [facility] [place], [address], 09/25/2022 20:05:13 09/25/19 23 09/25/2022 COMPR EHENS FABI METAB OLIC PANEL anion gap 13.4 mmol/ L 14-22 low Not Available [facility] (Lab) [address] [place], [address], 09/25/2022 20:05:13 09/25/19 23 09/25/2022 COMPR EHENS FABI METAB OLIC PANEL glucose 90 mg/dL 70-99 Not Available [facility] (Lab) [address] [place], [address], 09/25/2022 20:05:13 09/25/19 23 09/25/2022 COMPR EHENS FABI METAB OLIC PANEL BUN 11 mg/dL 8-19 Not Available [facility] (Lab) [address] [place], [address], 09/25/2022 20:05:13 09/25/19 23 09/25/2022 COMPR EHENS FABI METAB OLIC PANEL creatinine 0.93 mg/dL 0.66-1 .25 Not Available [facility] (Lab) [address] [place], [address], 09/25/2022 20:05:13 09/25/19 23 09/25/2022 COMPR EHENS FABI METAB OLIC PANEL GFR >60 Refer ence Range : [place] ge GFR Healt hy Adult : >60 mL/mi n/1.7 3 m2 Chron ic Kidne y Disea se: 15-60 mL/mi n/1.7 3 m2 Kidne y Failu re: <15/m L/min /1.73 m2 [email or web address] ov The MDRD study equat ion has not been valid ated in child blanka <18 years of age; pregn ant women ; the elder ly >85 years of age; or in some racia l or ethni c subgr oups, such as Hispa nics. Outsi de the valid ated alisa eters , estim ated GFR is less accur ate, requi ring clini lyle judgm ent on a case- by-ca se basis . Clini lyle inter preta tion for other races and ages must be made by the clini valerie. The MDRD study equat ion has not been valid ated for the evalu ation of serum creat inine relat ed to nutri dale l statu s or medic ation usage . For perso ns <18 years of age, a pedia tric GFR calcu lator is avail able on the [facility] websi te: https ://elsy chavez.azeb lugo/pr cortneyess ional s/kdo qi/gf r_cal culat or Not Available [facility] (Lab) [address] [place], [address], 09/25/2022 20:05:13 09/25/1909/25/2022 COMPR EHENS FABI METAB OLIC PANEL alkaline phosphatase 66 U/L 38-126 Not Available [facility] (Lab) [address] [place], [address], 09/25/2022 20:05:13 09/25/1909/25/2022 COMPR EHENS FABI METAB OLIC PANEL alanine aminotransfe rase 20 U/L 0-35 Not Available [facility] (Lab) [address] [place], [address], 09/25/2022 20:05:13 09/25/19 23 09/25/2022 COMPR EHENS FABI METAB OLIC PANEL aspartate aminotransfe rase 24 U/L 15-37 Not Available [facility] (Lab) [address] [place], [address], 09/25/2022 20:05:13 09/25/19 23 09/25/2022 COMPR EHENS FABI METAB OLIC PANEL bilirubin, total 0.50 mg/dL 0.20-1 .30 Not Available [facility] (Lab) [address] [place], [address], 09/25/2022 20:05:13 09/25/1909/25/2022 COMPR EHENS FABI METAB OLIC PANEL calcium 9.5 mg/dL 8.4-10 .2 Not Available [facility] (Lab) [address] [place], [address], 09/25/2022 20:05:13 09/25/1909/25/2022 COMPR EHENS FABI METAB OLIC PANEL total protein 7.3 g/dL 6.3-8. 2 Not Available [facility] (Lab) [address] [place], [address], 09/25/2022 20:05:13 09/25/19 23 09/25/2022 COMPR EHENS FABI METAB OLIC PANEL albumin 4.5 g/dL 3.4-5. 0 Not Available [facility] (Lab) [address] [place], [address], 09/25/2022 20:05:13 09/25/19 23 09/25/2022 COMPR EHENS FABI METAB OLIC PANEL globulin 2.8 g/dL 2.6-4. 2 Not Available [facility] (Lab) [address] [place], [address], 09/25/2022 20:05:13 09/25/19 23 09/25/2022 COMPR EHENS FABI METAB OLIC PANEL A/G ratio 1.6 ratio 1.0-2. 0 Not Available [facility] (Lab) [address] [facility], [place], [address], 09/25/2022 20:05:13 11/22/1911/24/2022 TESTO STERO NE, FREE, BIOAV AILAB LE AND TOTAL , MS albumin 4.0 g/dL 3.6-5. 1 Not Available [address], [address], 11/24/2022 16:42:15 11/22/1911/24/2022 TESTO STERO NE, FREE, BIOAV AILAB LE AND TOTAL , MS sex hormone binding globulin 26.1 nmol/ L 17-124 Not Available [address], [address], 11/24/2022 16:42:15 11/22/1911/24/2022 TESTO STERO NE, FREE, BIOAV AILAB LE AND TOTAL , MS testosterone , free 6.3 pg/mL 0.2-5. 0 high Not Available [address], [address], 11/24/2022 16:42:15 11/22/1911/24/2022 TESTO STERO NE, FREE, BIOAV AILAB LE AND TOTAL , MS testosterone ,bioavailabl e 11.6 NG/dL 0.5-8. 5 high Not Available [address], [address], 11/24/2022 16:42:15 11/22/1911/24/2022 TESTO STERO NE, FREE, BIOAV AILAB LE AND TOTAL , MS testosterone , total, MS 44 NG/dL 2-45 For addit ional infor janeen lloyd e refer to https ://ed ucati on.jacek stovallbeenz.com. [employer]Stream/f aq/FA Q165 (This link is being provi ded for infor matio nal/e ducat ional purpo ses only. ) (Note ) This test was juanjose christine and its ethel tical perfo rmanc e alvarado cteri stics have been deter mined by [employer]acy. It has not been clear ed or appro emma by the FDA. This assay has been valid ated pursu ant to the CLIA regul ation s and is used for clini lyle purpo ses. F med fusio n [address] [facility] [address] [facility] [address] [phone] Mustapha ross MD Not Available [facility] [address] [address] [place], [address], 11/24/2022 16:42:15 11/22/19 23 11/24/2022 IRON AND TOTAL IRON LIA NG CAPAC ITY iron, total 38 mcg/d L 40-190 low Not Available [facility] [address] [place], [address], 11/24/2022 16:42:16 11/22/19 23 11/24/2022 IRON AND TOTAL IRON LIA NG CAPAC ITY iron binding capacity 286 mcg/d L_(ca lc) 250-45 0 normal Not Available [address] [address] [place], [address], 11/24/2022 16:42:16 11/22/19 23 11/24/2022 IRON AND TOTAL IRON LIA NG CAPAC ITY % saturation 13 %_(ca lc) 16-45 low Not Available [facility] [address] [address] [place], [address], 11/24/2022 16:42:16 11/22/19 23 11/24/2022 DHEA SULFA TE DHEA sulfate 187 mcg/d L 19-237 normal Not Available [facility] [address] [address] [place], [address], 11/24/2022 16:42:16 11/22/19 23 11/24/2022 TSH+F REE T4 TSH 2.02 mIU/L normal Refer ence Range > or = 20 Years 0.40- 4.50 Pregn porter Range s First trime ster 0.26- 2.66 Secon d trime ster 0.55- 2.73 Third trime ster 0.43- 2.91 Not Available [address], [address], 11/24/2022 16:42:17 11/22/19 23 11/24/2022 TSH+F REE T4 T4, free 1.2 NG/dL 0.8-1. 8 normal Not Available [address], [address], 11/24/2022 16:42:17 03/20/20 23 03/23/2023 IRON, TIBC AND JUAN ALBERTO TIN PANEL iron, total 107 mcg/d L 40-190 normal Not Available [address], [address], 03/23/2023 20:34:20 03/20/20 23 03/23/2023 IRON, TIBC AND JUAN ALBERTO TIN PANEL iron binding capacity 310 mcg/d L_(ca lc) 250-45 0 normal Not Available [address], [address], 03/23/2023 20:34:20 03/20/20 23 03/23/2023 IRON, TIBC AND JUAN ALBERTO TIN PANEL % saturation 35 %_(ca lc) 16-45 normal Not Available [address], [address], 03/23/2023 20:34:20 03/20/20 23 03/23/2023 IRON, TIBC AND JUAN ALBERTO TIN PANEL ferritin 21 NG/mL 16-154 normal Not Available [address], [address], 03/23/2023 20:34:20 03/20/20 23 03/23/2023 TESTO STERO NE, FREE, BIOAV AILAB LE AND TOTAL , MS albumin 3.8 g/dL 3.6-5. 1 Not Available [address], [address], 03/23/2023 20:34:21 03/20/20 23 03/23/2023 TESTO STERO NE, FREE, BIOAV AILAB LE AND TOTAL , MS sex hormone binding globulin 31.1 nmol/ L 17-124 Not Available [address], [address], 03/23/2023 20:34:21 03/20/2003/23/2023 TESTO STERO NE, FREE, BIOAV AILAB LE AND TOTAL , MS testosterone , free 2.9 pg/mL 0.2-5. 0 Not Available [address], [address], 03/23/2023 20:34:21 03/20/20 23 03/23/2023 TESTO STERO NE, FREE, BIOAV AILAB LE AND TOTAL , MS testosterone ,bioavailabl e 5.1 NG/dL 0.5-8. 5 Not Available [address], [address], 03/23/2023 20:34:21 03/20/20 23 03/23/2023 TESTO STERO NE, FREE, BIOAV AILAB LE AND TOTAL , MS testosterone , total, MS 23 NG/dL 2-45 For addit ional infor janeen lloyd e refer to https ://ed ucati on.qu rogeliodi wilmanTwibingos. com/f aq/FA Q165 (This link is being provi ded for infor ruben nal/e ducat ional purpo ses only. ) (Note ) This test was devel oped and its ethel tical perfo rmanc e alvarado cteri stics have been deter mined by [employer] tracy. It has not been clear ed or appro emma by the FDA. This assay has been valid ated pursu ant to the CLIA regul ation s and is used for clini lyle purpo ses. F med fusio n [address] [facility] [address] [place] [address] [phone] Wilber doan MD Not Available [address], [address], 03/23/2023 20:34:21 03/20/20 23 03/23/2023 COMPR EHENS FABI METAB OLIC PANEL glucose 87 mg/dL 65-99 normal Fasti ng refer ence inter padilla Not Available [address], [address], 03/23/2023 20:34:22 03/20/20 23 03/23/2023 COMPR EHENS FABI METAB OLIC PANEL urea nitrogen (BUN) 12 mg/dL 7-25 normal Not Available [address], [address], 03/23/2023 20:34:22 03/20/20 23 03/23/2023 COMPR EHENS FABI METAB OLIC PANEL creatinine 0.94 mg/dL 0.50-0 .97 normal Not Available [address], [address], 03/23/2023 20:34:22 03/20/20 23 03/23/2023 COMPR EHENS FABI METAB OLIC PANEL eGFR 80 mL/mi n/1.7 3m2 > or = 60 normal Not Available [address], [address], 03/23/2023 20:34:22 03/20/20 23 03/23/2023 COMPR EHENS FABI METAB OLIC PANEL BUN/creatini ne ratio SEE NOTE: (calc ) 6-22 Not Repor maria elena: BUN and Creat inine are withi n refer ence range . Not Available [address], [address], 03/23/2023 20:34:22 03/20/20 23 03/23/2023 COMPR EHENS FABI METAB OLIC PANEL sodium 136 mmol/ L 135-14 6 normal Not Available [address], [address], 03/23/2023 20:34:22 03/20/20 23 03/23/2023 COMPR EHENS FABI METAB OLIC PANEL potassium 4.7 mmol/ L 3.5-5. 3 normal Not Available [address], [address], 03/23/2023 20:34:22 03/20/20 23 03/23/2023 COMPR EHENS FABI METAB OLIC PANEL chloride 103 mmol/ L 98-110 normal Not Available [address], [address], 03/23/2023 20:34:22 03/20/20 23 03/23/2023 COMPR EHENS FABI METAB OLIC PANEL carbon dioxide 26 mmol/ L 20-32 normal Not Available [address], [address], 03/23/2023 20:34:22 03/20/20 23 03/23/2023 COMPR EHENS FABI METAB OLIC PANEL calcium 8.7 mg/dL 8.6-10 .2 normal Not Available [address], [address], 03/23/2023 20:34:22 03/20/20 23 03/23/2023 COMPR EHENS FABI METAB OLIC PANEL protein, total 5.8 g/dL 6.1-8. 1 low Not Available [address], [address], 03/23/2023 20:34:22 03/20/20 23 03/23/2023 COMPR EHENS FABI METAB OLIC PANEL albumin 3.8 g/dL 3.6-5. 1 normal Not Available [address], [address], 03/23/2023 20:34:22 03/20/20 23 03/23/2023 COMPR EHENS FABI METAB OLIC PANEL globulin 2.0 g/dL_ (calc ) 1.9-3. 7 normal Not Available [address], [address], 03/23/2023 20:34:22 03/20/20 23 03/23/2023 COMPR EHENS FABI METAB OLIC PANEL albumin/glob ulin ratio 1.9 (calc ) 1.0-2. 5 normal Not Available [address], [address], 03/23/2023 20:34:22 03/20/20 23 03/23/2023 COMPR EHENS FABI METAB OLIC PANEL bilirubin, total 0.4 mg/dL 0.2-1. 2 normal Not Available [address], [address], 03/23/2023 20:34:22 03/20/20 23 03/23/2023 COMPR EHENS FABI METAB OLIC PANEL alkaline phosphatase 48 U/L 31-125 normal Not Available [address], [address], 03/23/2023 20:34:22 03/20/20 23 03/23/2023 COMPR EHENS FABI METAB OLIC PANEL AST 10 U/L 10-30 normal Not Available [address], [address], 03/23/2023 20:34:22 03/20/20 23 03/23/2023 COMPR EHENS FABI METAB OLIC PANEL ALT 10 U/L 6-29 normal Not Available [address], [address], 03/23/2023 20:34:22 03/20/20 23 03/23/2023 THYRO ID PEROX IDASE ANTIB ODIES thyroid peroxidase antibodies <1 IU/mL <9 Not Available [address], [address], 03/23/2023 20:34:23 03/20/20 23 03/23/2023 DHEA SULFA TE DHEA sulfate 152 mcg/d L 19-237 normal Not Available [address], [address], 03/23/2023 20:34:24 03/20/20 23 03/23/2023 VITAM IN B12/F OLATE , SERUM PANEL vitamin B12 609 pg/mL 200-11 00 normal Not Available [address], [address], 03/23/2023 20:34:25 03/20/20 23 03/23/2023 VITAM IN B12/F OLATE , SERUM PANEL folate, serum 12.7 NG/mL normal Refer ence Range Low: <3.4 Borde rline : 3.4-5 .4 Nimco l: >5.4 Not Available [address], [address], 03/23/2023 20:34:25 03/20/20 23 03/23/2023 T3, FREE T3, free 2.9 pg/mL 2.3-4. 2 normal Not Available [address], [address], 03/23/2023 20:34:25 03/20/20 23 03/23/2023 VITAM IN D,25- OH,TO CHULA,I A vitamin D,25-oh,tota l,ia 34 NG/mL 30-100 normal Vitam in D Statu s 25-OH Vitam in D: Defic iency : <20 ng/mL Insuf ficie ncy: 20 - 29 ng/mL Optim al: > or = 30 ng/mL For 25-OH Vitam in D testi ng on patie nts on D2-church pplem entat ion and patie nts for whom quant itati on of D2 and D3 fract ions is requi red, the [facility] e[facility](TM ) 25-OH VIT D, (D2,D 3), LC/MS /MS is recom lloyd d: order code 29208 (sushila ents >2yrs ). See Note 1 Note 1 For addit ional infor janeen lloyd refer to http: //[facility] ashia [place] stDia gnost ics.c om/fa q/FAQ 199 (This link is being provi ded for infor ruben pinedo/ shaye snyder purpo ses only. ) Not Available [address] [address] [place], [address], 03/23/2023 20:34:26 03/20/20 23 03/23/2023 TSH+F REE T4 TSH 3.43 mIU/L normal Refer ence Range > or = 20 Years 0.40- 4.50 Pregn porter Range s First trime ster 0.26- 2.66 Secon d trime ster 0.55- 2.73 Third trime ster 0.43- 2.91 Not Available [address] [address] [place], [address], 03/23/2023 20:34:27 03/20/20 23 03/23/2023 TSH+F REE T4 T4, free 1.1 NG/dL 0.8-1. 8 normal Not Available [facility] [address] [address] [place], [address], 03/23/2023 20:34:27 05/13/20 23 05/14/2023 COMPR EHENS FABI METAB OLIC PANEL glucose 84 mg/dL 65-99 normal Fasti ng refer ence inter padilla Not Available [address] [address] [place], [address], 05/14/2023 12:25:55 05/13/20 23 05/14/2023 COMPR EHENS FABI METAB OLIC PANEL urea nitrogen (BUN) 10 mg/dL 7-25 normal Not Available [address], [address], 05/14/2023 12:25:55 05/13/20 23 05/14/2023 COMPR EHENS FABI METAB OLIC PANEL creatinine 0.93 mg/dL 0.50-0 .97 normal Not Available [address], [address], 05/14/2023 12:25:55 05/13/2005/14/2023 COMPR EHENS FABI METAB OLIC PANEL eGFR 81 mL/mi n/1.7 3m2 > or = 60 normal Not Available [address], [address], 05/14/2023 12:25:55 05/13/20 23 05/14/2023 COMPR EHENS FABI METAB OLIC PANEL BUN/creatini ne ratio SEE NOTE: (calc ) 6-22 Not Repor maria elena: BUN and Creat inine are withi n refer ence range . Not Available [address], [address], 05/14/2023 12:25:55 05/13/20 23 05/14/2023 COMPR EHENS FABI METAB OLIC PANEL sodium 136 mmol/ L 135-14 6 normal Not Available [address], [address], 05/14/2023 12:25:55 05/13/2005/14/2023 COMPR EHENS FABI METAB OLIC PANEL potassium 4.2 mmol/ L 3.5-5. 3 normal Not Available [address], [address], 05/14/2023 12:25:55 05/13/20 23 05/14/2023 COMPR EHENS FABI METAB OLIC PANEL chloride 103 mmol/ L 98-110 normal Not Available [address], [address], 05/14/2023 12:25:55 05/13/20 23 05/14/2023 COMPR EHENS FABI METAB OLIC PANEL carbon dioxide 25 mmol/ L 20-32 normal Not Available [address], [address], 05/14/2023 12:25:55 05/13/20 23 05/14/2023 COMPR EHENS FABI METAB OLIC PANEL calcium 8.8 mg/dL 8.6-10 .2 normal Not Available [address], [address], 05/14/2023 12:25:55 05/13/20 23 05/14/2023 COMPR EHENS FABI METAB OLIC PANEL protein, total 6.3 g/dL 6.1-8. 1 normal Not Available [address], [address], 05/14/2023 12:25:55 05/13/20 23 05/14/2023 COMPR EHENS FABI METAB OLIC PANEL albumin 4.0 g/dL 3.6-5. 1 normal Not Available [address], [address], 05/14/2023 12:25:55 05/13/20 23 05/14/2023 COMPR EHENS FABI METAB OLIC PANEL globulin 2.3 g/dL_ (calc ) 1.9-3. 7 normal Not Available [address], [address], 05/14/2023 12:25:55 05/13/20 23 05/14/2023 COMPR EHENS FABI METAB OLIC PANEL albumin/glob ulin ratio 1.7 (calc ) 1.0-2. 5 normal Not Available [address], [address], 05/14/2023 12:25:55 05/13/20 23 05/14/2023 COMPR EHENS FABI METAB OLIC PANEL bilirubin, total 0.3 mg/dL 0.2-1. 2 normal Not Available [address], [address], 05/14/2023 12:25:55 05/13/2005/14/2023 COMPR EHENS FABI METAB OLIC PANEL alkaline phosphatase 48 U/L 31-125 normal Not Available [facility] [employer] [address] [address] [place], [address], 05/14/2023 12:25:55 05/13/20 23 05/14/2023 COMPR EHENS FABI METAB OLIC PANEL AST 12 U/L 10-30 normal Not Available [address], [address], 05/14/2023 12:25:55 05/13/20 23 05/14/2023 COMPR EHENS FABI METAB OLIC PANEL ALT 9 U/L 6-29 normal Not Available [address], [address], 05/14/2023 12:25:55 05/13/20 23 05/14/2023 INSUL IN insulin 18.4 uIU/m L normal Refer ence Range < or = 18.4 Risk: Optim al < or = 18.4 Moder ate NA High >18.4 Adult cardi ovasc ular event risk categ ory cut point s (opti mal, moder ate, high) are based on Insul in Refer ence Inter padilla studi es perfo rmed at [facility] in 2021. Not Available [facility] [employer] [address], [address], 05/14/2023 12:25:57 05/13/20 23 05/14/2023 T3, FREE T3, free 3.0 pg/mL 2.3-4. 2 normal Not Available [facility] [address] [place], [address], 05/14/2023 12:25:58 05/13/2005/14/2023 TSH+F REE T4 TSH 1.88 mIU/L normal Refer ence Range > or = 20 Years 0.40- 4.50 Pregn porter Range s First trime ster 0.26- 2.66 Secon d trime ster 0.55- 2.73 Third trime ster 0.43- 2.91 Not Available [facility] [address], [place], [address], 05/14/2023 12:25:59 05/13/2005/14/2023 TSH+F REE T4 T4, free 1.4 NG/dL 0.8-1. 8 normal Not Available [facility] [address] [place], [address], 05/14/2023 12:25:59 05/13/2005/14/2023 HEMOG LOBIN A1C hemoglobin A1C 4.9 %_of_ total _HGB <5.7 normal For the purpo se of carmen camargo for the prese nce of diabe sharri: <5.7% Consi stent with the absen ce of diabe sharri 5.7-6 .4% Consi stent with incre ased risk for diabe sharri (pred iabet es) > or =6.5% Consi stent with diabe sharri This assay resul t is consi stent with a decre ased risk of diabe sharri. Curre ntly, no conse nsus exist s devaughn posey use of hemog lobin A1c for diagn osis of diabe sharri in child [place]. Accor ding to Ameri can Diabe sharri Assoc iatio n (ADA) guide lines , hemog lobin A1c <7.0% repre sents optim al contr ol in non-p regna nt diabe tic patie nts. Diffe rent metri cs may apply to speci fic patie nt popul ation s. [facility] ards of Medic al Care in Diabe sharri(A DA). Not Available [facility] [address], [place], [address], 05/14/2023 12:26:00 10/05/19 XR, chest , [facility] [address] [place] [address] Rd pineda Name: ALKA GONZALEZ Access ion #: [id number] Sex: F : 1984 8 Locati on: LA2 Attend ing Physic dane: MADISYN DAWSON Orderi ng Physic dane: MADISYN DAWSON Exam Date: 10/05/19 11:54 AM Exam Name: XR CHEST 2V Admitt ing Diagno sis(es ): RADIOL OGY REPORT - FINAL EXAM: XR CHEST 2V HISTOR Y: dyspne a upon exerti on COMPAR DEMETRI: None. TECHNI QUE: Two views of the chest were perfor med. FINDIN GS: No pneumo thorax , consol idativ e infilt rates, pleura l effusi ons, or pulmon heath edema. The heart is not enlarg ed. IMPRES TRACY: Unrema rkable 2 view chest. Page 1 of [address] [facility] [address] pineda Name: ALKA GONZALEZ Access ion #: [id number] Sex: F : 1984 8 Exam Date: 10/05/19 11:54 AM Exam Name: XR CHEST 2V Admitt ing Diagno sis(es ): Create d and electr onical ly signed by: Riley raymond MD Signed Date: 10/05/19 1:07 PM (CT) Dictat ed by: Riley raymond MD (CT) (CT) Page 2 of 2 [id number] [facility] (Imaging) [address] [place], [address], 10/01/2022 20:22:31 10/05/19 22 10/04/2021 XR, chest , 2 view No observ ation record ed. [id number] [facility] ([facility]) [address] [place], [address], 10/01/2022 20:22:31 10/05/19 22 10/04/2021 XR, chest , 2 view No observ ation record ed. [id number] [facility] ([facility]) [address] [place], [address], 10/01/2022 20:22:31 05/21/20 23 US, head + neck, soft tissu e [facility] [address] [place] [address] Patien t Name: ALKA GONZALEZ Access ion #: [id number] Sex: F : 1984 6 Dictat ed By: Shama Marie Attend ing Physic dane: MADISYN DAWSON Orderi Physic dane: MADISYN DAWSON Exam Date: 2022 09:59 AM Exam Name: US NECK/H EAD SOFT TISSUE Admitt ing Diagno sis(es ): Exam: Ultras ound of the Soft tissue s - left it project lead ior neck Clinic al Histor y: Lump on back Compar demetri: None Techni que: Target ed sonogr aphic evalua tion of the soft tissue s of the lump on back was obtain ed utiliz ing graysc barbara and color Dopple r imagin g. Findin gs: There is no eviden ce for draina ble collec tion. Morpho logica lly benign -appea ring lymph node measur ing 0.8 cm corres pondin g to region of intere st. No vascul ar abnorm alitie s identi fied at this site. IMPRES TRACY: Morpho logica lly benign -appea ring lymph node measur ing 0.8 cm corres pondin g to region of intere st. Electr onical ly Signed by: Shama Marie at 2022 10:35: 19 AM Page 1 [facility] (Imaging) [address] [place], [address], 05/25/2023 09:47:00 05/21/2005/21/2023 US, head + neck, soft tissu e No observ ation record ed. [email or web address] [facility] [address] [place], [address], 08/07/2023 01:31:29 05/21/2005/21/2023 US, thyro id No observ ation record ed. [facility] [address] [place], [address], 05/25/2023 09:47:00 05/21/20 US, head + neck, soft tissu e [facility] [address] [place] [address] [phone] Patien t Name: ALKA GONZALEZ Access ion #: [id number] Sex: F : 1984 6 Dictat ed By: Shama Marie Attend ing Physic dane: MADISYN DAWSON Orderi Physic dane: MADISYN DAWSON Exam Date: 2022 10:02 AM Exam Name: US NECK/H EAD SOFT TISSUE Admitt ing Diagno sis(es ): ULTRAS OUND SOFT TISSUE HEAD [facility] NECK CLINIC AL INDICA TION: Enlarg ed thyroi d TECHNI QUE: Multip le real time sonogr aphic images of the thyroi d were obtain ed. COMPAR DEMETRI: None FINDIN GS: The right thyroi d gland measur es 4.4 x 1.3 x 1.6 cm. The left thyroi d gland measur es approx imatel y 4.8 x 1.1 x 1.2 cm. The isthmu s measur es 0.4 cm. 2 adjace nt circum scribe d solid hypoec hoic nodule s in the upper pole of the right thyroi d measur ing 0.5 cm, TR 4.. IMPRES TRACY: TR 4, 0.5 cm nodule s in the upper pole the right thyroi d. [place] Brown of Radiol ogy TI-RAD S Catego mario and Recomm endati ons (2017) : TR1: 0 points , Benign , No FNA TR2: 2 points , Not suspic ious, No FNA TR3: 3 points , Mildly suspic ious, FNA if > or = 2.5 cm, Follow if > or = 1.5 cm TR4: 4-6 points , Modera tely Suspic ious, FNA if > or = 1.5 cm, Follow if > or = 1.0 cm TR5: 7+ points , Highly Suspic ious, FNA if > or = 1.0 cm, Follow if > or = 0.5 cm Follow -up ultras ound guidel efra: TR5: yearly for 5 years, if no growth or change in TI-RAD S level Page 1 [facility] [address] [place] [address] Patien t Name: ALKA GONZALEZ Access ion #: [id number] Sex: F : 1984 6 Dictat ed By: Shama Marie Attend ing Physic dane: EUNICE MARS [facility] Physic dane: MADISYN DAWSON Exam Date: 2022 10:02 AM Exam Name: US NECK/H EAD SOFT TISSUE Admitt ing Diagno sis(es ): TR4: at 1, 2, 3 and 5 years, if no growth or change in TI-RAD S level TR3: at 1, 3 and 5 years, if no growth or change in TI-RAD S level If change but below thresh old for FNA, repeat in one year. Source : ACR Thyroi d Quoc g, Report ing and Data System (TI-RA DS): White Paper of the ACR TI-RAD S Commit maureen. Celestina et al., J Am Virgie Radiol 2017;1 4:587- 595. Electr onical ly Signed by: Shama Marie at 2022 13:25: 31 PM Page 2 [facility] ([facility]) [address] [place], [address], 05/25/2023 09:47:01 05/21/2005/21/2023 US, head + neck, soft tissu e No observ ation record ed. [facility] ([facility]) [address] [place], [address], 05/25/2023 09:47:01 05/21/2005/21/2023 US, thyro id No observ ation record ed. [facility] [address] [place], [address], 05/25/2023 09:47:02 05/21/2005/21/2023 US, head + neck, soft tissu e No observ ation record ed. [facility] ([facility]) [address] [place], [address], 05/25/2023 09:47:02 Result Notes None recorded. Problems Name Problem SNOMED Code Status Onset Date Resolution Date Notes Provider Name and Address Organization Details Recorded Time Acute sinusitis 84642106 Active 2021 Not Available [facility] 3 05:39:41 Acute tonsillitis 14624751 Active 2021 Not Available [facility] 3 05:39:41 Vitamin D deficiency 05684528 Active 2022 Not Available [facility] 3 05:39:41 Hypothyroidis m 40338685 Active 2021 Not Available [facility] 3 05:39:41 Obesity 110223490 Active 2021 Not Available [facility] 3 05:39:41 Candidiasis of vagina 90617237 Active 2021 Not Available [facility] 3 05:39:42 COVID-19 738633519 Active 2021 Not Available [facility] 3 05:39:42 Prediabetes 174034519 Active 2022 Not Available [facility] 3 05:39:42 growth restriction 89236480 Active 2022 Not Available [facility] 3 05:39:41 Loss of hair 820022090 Active 2022 Not Available [facility] 3 05:39:41 Iron deficiency anemia 08371886 Active 2022 Not Available [facility] 3 05:39:42 Impaired fasting glycemia 661824572 Active 2022 Not Available [facility] 3 05:39:41 Chronic tonsillitis 03623233 Active 2022 Not Available [facility] 3 05:39:42 Acute situational disturbance 012893830 Active 2022 Not Available [facility] 3 05:39:41 Vitamin B12 deficiency (non anemic) 24031032 Active 2022 Not Available [facility] 3 05:39:41 Occipital lymphadenopat hy 453730635 Active 2022 Not Available [facility] 3 05:39:41 Polycystic ovary syndrome 069946904 Active 2022 Not Available [facility] 3 05:39:41 Hyperthyroidi sm 43349094 Active 2022 Not Available [facility] 3 05:39:41 Thyroid nodule 761617021 Active 2022 Not Available [facility] 3 05:39:41 Disorder of thyroid gland 66094139 Active 2022 Not Available [facility] 3 05:39:41 Seasonal allergic rhinitis 853049729 Active 2022 Madisyn Dawson MD [address], [address] , [facility] [place] [facility] [place] [facility] 3 10:31:11 Problem Notes None recorded. Procedures Surgical History Date Name Laterality Status Provider Name and Address Organization Details Recorded Time 11/04/19 Date of Last Pap Smear completed Not Available [facility] 10/01/2022 20:20:20 loop electrosurgical excision procedure completed Not Available [facility] 10/01/2022 20:20:21 Eye Surgery completed Not Available [facility] 10/01/2022 20:20:21 Imaging Results Imaging Date Name Status [facility] Details LastModified Time 10/04/2021 XR, chest, 2 view completed [id number] [facility] (Imaging) [address] [place], [address], 10/01/2022 20:22:31 10/04/2021 XR, chest, 2 view completed [id number] [facility] ([facility]) [address] [place], [address], 10/01/2022 20:22:31 10/04/2021 XR, chest, 2 view completed [id number] [facility] ([facility]) [address] [place], [address], 10/01/2022 20:22:31 05/21/2023 US, head + neck, soft tissue completed [facility] (Imaging) [address] [place], [address], 05/25/2023 09:47:00 05/21/2023 US, head + neck, [email or web address] [address] [place], [address], 08/07/2023 01:31:29 05/21/2023 US, thyroid completed [facility] [address] [place], [address], 05/25/2023 09:47:00 05/21/2023 US, head + neck, soft tissue completed [facility] (Imaging) [address] [place], [address], 05/25/2023 09:47:01 05/21/2023 US, head + neck, soft tissue completed [facility] ([facility] Scheduling) [address] [place], [address], 05/25/2023 09:47:01 05/21/2023 US, thyroid completed [facility] [address] [place], [address], 05/25/2023 09:47:02 05/21/2023 US, head + neck, soft tissue completed [facility] ([facility] Sched[facility]) [address] [place], [address], 05/25/2023 09:47:02 Procedure Notes None recorded. Medical Equipment None Reported. Allergies Allergen ID Allergen Name Allergen Category Reaction Reaction Severity Criticality Documentation Date Start Date Code Code System Note Provider Name and Address Organization Details Recorded Time 95157 Product containin g penicilli n and antibioti c (product) medicatio n vomiting Not available Not available 10/01/2022 32452 05 SNOMED Not Available [facility] 3 20:22:27 01901 meloxicam medicatio n rash Not available Not available 10/01/2022 93253 RxNorm Not Available [facility] 3 20:22:28 Medications Name Sig Start Date Stop Date Status Note LastModified by Organization Details LastModified Time cyclobenza tri 10 mg tablet Take 1 tablet every day by oral route for 30 days. active Not Available Not Available No t Available lamotrigin e 150 mg tablet TAKE 1 TABLET BY MOUTH EVERY DAY AT BEDTIME FOR 30 DAYS 04/13 completed Not Available Not Available Not Available Colace 100 mg capsule Take 1 capsule twice a day by oral route as needed for 30 days. 06/12 completed Not Available Not Available Not Available lamotrigin e 200 mg tablet TAKE 1 TABLET BY MOUTH EVERY DAY AT BEDTIME active Not Available Not Available No t Available trazodone 50 mg tablet TAKE 1/2-1 TABLET BY MOUTH DAILY AT BEDTIME NEEDED 04/13 completed Not Available Not Available Not Available cetirizine 10 mg tablet TAKE 1 TABLET BY MOUTH EVERY MORNING active Not Available Not Available No t Available azithromyc in 250 mg tablet TAKE 2 TABLETS (500 MG) BY ORAL ROUTE ONCE DAILY FOR 1 DAY THEN 1 TABLET (250 MG) BY ORAL ROUTE ONCE DAILY FOR 4 DAYS 05/12 completed Not Available Not Available Not Available ibuprofen 800 mg tablet Take 1 tablet 3 times a day by oral route as needed for 15 days. 11/20 completed Not Available Not Available Not Available fluconazol e 150 mg tablet TAKE 1 TABLET BY MOUTH AND TAKE SECOND THREE DAYS LATER IF NEEDED 04/13 completed Not Available Not Available Not Available clarithrom ycin 500 mg tablet Take 1 tablet every 12 hours by oral route before meals for 14 days. active Not Available Not Available No t Available meloxicam 15 mg tablet 11/03 completed Not Available Not Available Not Available prednisone 20 mg tablet TAKE 1 TABLET BY MOUTH EVERY DAY X5DAYS 11/20 completed Not Available Not Available Not Available Synthroid 100 mcg tablet Take 1 tablet every day by oral route in the morning for 90 days. 2022 active Not Available Not Available Not Avai lable prednisone 5 mg tablet Take 1 tablet every day by oral route for 5 days. 11/20 completed Not Available Not Available Not Available phentermin e 37.5 mg tablet TK 1 T PO QD FOR 90 DAYS active Not Available Not Available No t Available sulfametho xazole 800 mg-trimeth oprim 160 mg tablet TAKE 1 TABLET BY MOUTH EVERY 12 HOURS WITH MEALS FOR 7 DAYS 06/12 completed Not Available Not Available Not Available liothyroni ne 5 mcg tablet Take 1 tablet every day by oral route for 60 days. 04/13 completed Not Available Not Available Not Available tramadol 50 mg tablet Take 1 tablet every 6 hours by oral route for 5 days. 11/20 completed Not Available Not Available Not Available lamotrigin e 25 mg tablet TAKE 1 TABLET BY MOUTH ONCE DAILY X14 DAYS, THEN 2 TABLETS DAILY 03/19 completed Not Available Not Available Not Available propranolo l 10 mg tablet Take 1 tablet 3 times a day by oral route as needed for 30 days. active Not Available Not Available No t Available alprazolam 0.25 mg tablet TAKE 1 TABLET BY MOUTH TWICE DAILY NEEDED active Not Available Not Available No t Available methocarba mol 750 mg tablet Take 1 tablet 3 times a day by oral route for 5 days. 11/20 completed Not Available Not Available Not Available hydrocorti sone-aceti c acid 1 %-2 % ear drops INSTILL 2 DROPS INTO AFFECTED EAR(S) BY OTIC ROUTE 4 TIMES PER DAY active Not Available Not Available No t Available Synthroid 25 mcg tablet TAKE 1 TABLET EVERY MORNING 03/28 completed Not Available Not Available Not Available dexamethas one 1 mg tablet Take 1 tablet as needed by oral route as directed for 1 day. active Not Available Not Available No t Available cyanocobal alexis (vit B-12) 1,000 mcg/mL injection solution ADMINISTE R 1 ML UNDER THE SKIN 1 TIME A WEEK IN THE MORNING active Not Available Not Available No t Available ferrous sulfate 325 mg (65 mg iron) tablet TAKE 1 TABLET BY MOUTH EVERY DAY AT 12PM active Not Available Not Available No t Available clotrimazo le-betamet hasone 1 %-0.05 % topical cream APPLY AA PRN 09/01 completed Not Available Not Available Not Available Synthroid 75 mcg tablet Take 1 tablet every day by oral route. 04/13 completed Not Available Not Available Not Available fluoxetine 10 mg capsule TAKE 1 CAPSULE BY MOUTH EVERY DAY IN THE MORNING 04/13 completed Not Available Not Available Not Available Synthroid 50 mcg tablet Take 1 tablet every other day by oral route in the morning for 30 days. 11/20 completed take 75 mcg on / Hurs/S at/Sun day and 50 mcg on Thu/ d/Frid ay thank you Not Available Not Available Not Available Synthroid 112 mcg tablet Take 1 tablet every day by oral route. active Not Available Not Available No t Available ergocalcif nivia (vitamin D2) 1,250 mcg (50,000 unit) capsule TAKE 1 CAPSULE BY MOUTH EVERY WEEK DIRECTED active Not Available Not Available No t Available levofloxac in 750 mg tablet Take 1 tablet every day by oral route for 7 days. active Not Available Not Available No t Available methylpred nisolone 4 mg tablets in a dose pack FPD active Not Available Not Available Not Available albuterol sulfate HFA 90 mcg/actuat ion aerosol inhaler INL 2 PFS PO Q 4 H PRN active Not Available Not Available No t Available fluticason e propionate 50 mcg/actuat ion nasal spray,susp ension SHAKE LIQUID AND USE 1 SPRAY IN EACH NOSTRIL EVERY DAY active Not Available Not Available No t Available metformin ER 500 mg tablet,ext ended release 24 hr TAKE 1 TABLET BY MOUTH EVERY DAY WITH DINNER active Not Available Not Available No t Available lamotrigin e 100 mg tablet TAKE 1 TABLET BY MOUTH EVERY DAY FOR 30 DAYS 03/19 completed Not Available Not Available Not Available loratadine 10 mg tablet TK 1 T PO QD PRN. active Not Available Not Available No t Available spironolac tone 50 mg tablet TAKE 2 TABLETS BY MOUTH EVERY DAY IN THE MORNING active Not Available Not Available No t Available progestero ne micronized 100 mg capsule Take 4 capsules at bedtime x10 days every 35 days if no menses 03/28 completed Not Available Not Available Not Available amoxicilli n 875 mg-potassi um clavulanat e 125 mg tablet Take 1 tablet every 12 hours by oral route for 7 days. 04/13 completed Not Available Not Available Not Available atomoxetin e 25 mg capsule TAKE 1 CAPSULE BY MOUTH EVERY MORNING X 1 WEEK, THEN INCREASE TO 40MG 04/13 completed Not Available Not Available Not Available atomoxetin e 40 mg capsule TAKE 1 CAPSULE BY MOUTH EVERY DAY IN THE MORNING 04/13 completed Not Available Not Available Not Available nitrofuran toin monohydrat e/macrocry stals 100 mg capsule Take 1 capsule every 12 hours by oral route before meals for 5 days. 09/01 completed Not Available Not Available Not Available Cymbalta 30 mg capsule,de layed release Take 1 capsule every day by oral route in the morning for 90 days. 12/07 completed Not Available Not Available Not Available atomoxetin e 80 mg capsule Take 1 capsule every day by oral route. active Not Available Not Available No t Available Flector 1.3 % transderma l 12 hour patch Apply 1 patch twice a day by transderm al route around the clock for 20 days. 11/03 completed Not Available Not Available Not Available diclofenac 1 % topical gel AUBREY 2 GRAMS EXT AA QID 09/29 completed Not Available Not Available Not Available clonidine HCl ER 0.1 mg tablet,ext ended release,12 hr TAKE 1 TABLET BY MOUTH EVERY DAY AT BEDTIME FOR 30 DAYS 04/13 completed Not Available Not Available Not Available Vitamin D3 50 mcg (2,000 unit) capsule Take 2 capsules every day by oral route in the morning for 90 days. 2022 active Not Available Not Available Not Avai lable BD Insulin Syringe Ultra-Fine 1 mL 31 gauge x 5/16 INJECT B12 UNDER THE SKIN ONCE WEEKLY X 90 DAYS active Not Available Not Available No t Available Wegovy 1 mg/0.5 mL subcutaneo us pen injector Inject by subcutane ous route for 28 days. active Not Available Not Available No t Available Wegovy 0.25 mg/0.5 mL subcutaneo us pen injector Inject 0.25 mg every week by subcutane ous route as directed for 30 days. 05/12 completed Not Available Not Available Not Available Wegovy 0.5 mg/0.5 mL subcutaneo us pen injector Inject 0.5 mg every week by subcutane ous route at dinner for 30 days. 2022 active Not Available Not Available Not Avjosselyn mcdowell Mounjaro 7.5 mg/0.5 mL subcutaneo us pen injector INJECT 7.5 MG EVERY WEEK BY SUBCUTANE OUS ROUTE 04/13 completed Not Available Not Available Not Available Mounjaro 5 mg/0.5 mL subcutaneo us pen injector INJECT THE CONTENTS OF 1 PEN UNDER THE SKIN ONCE EVERY 7 DAYS 04/13 completed Not Available Not Available Not Available Mounjaro 10 mg/0.5 mL subcutaneo us pen injector Inject 10 mg every week by subcutane ous route at dinner for 90 days. 04/13 completed Not Available Not Available Not Available Mounjaro 2.5 mg/0.5 mL subcutaneo us pen injector Inject by subcutane ous route for 28 days. 04/13 completed Not Available Not Available Not Available Vitals Date Recorded Body mass index (BMI) Body mass index (BMI) Body height Body height Body height Oxygen saturation Oxygen saturation in Arterial blood by Pulse oximetry Heart rate Body temperature Body temperature Body weight Body weight Systolic blood pressure Diastolic blood pressure Provider Name and Address Organization Details Last Updated DateTime 3 48.7 kg/m2 50.8 kg/m2 157.48 cm 157.48 cm 157.48 cm 99 % 99 % 94 /min 97.7 [degF] 97.1 [degF] 383837. 57 g 338886. 68 g 124 mm[Hg] 70 mm[Hg] Not Available [facility] 3 20:20:36 Date Recorded Body weight Body mass index (BMI) Body height Provider Name and Address Organization Details Last Updated DateTime 04/13/2023 639584.82 g 40.8 kg/m2 157.48 cm Ruth Reis PR [employer] [facility] [employer] 04/13/2023 08:50:51 Date Recorded Body height Body mass index (BMI) Body weight Respiratory rate Body temperature Heart rate Systolic blood pressure Diastolic blood pressure Provider Name and Address Organization Details Last Updated DateTime 3 157.48 cm 40.6 kg/m2 840852. 22 g 12 /min 97.9 [degF] 78 /min 112 mm[Hg] 70 mm[Hg] Cynthia Cotto RN [facility] [employer] [facility] 3 10:07:01 Social History Question Answer Notes LastModified by Organization Details LastModified Time Tobacco Smoking Status Former Smoker quit 2015 Not Available [facility] 10/01/2022 20:20:10 Do You Have An Advance Directive? No MIGRATION.0301 [id number] Information not available 10/01/2022 What Is Your Level Of Alcohol Consumption? None MIGRATION.0301 123012 Information not available 10/01/2022 What Is Your Level Of Caffeine Consumption? Moderate MIGRATION.030 [id number] Information not available 10/01/2022 In The 14 Days Before Symptom Onset, Have You Had Close Contact With A Laboratory-confi rmed COVID-19 While That Case Was Ill? No MIGRATION.030 [id number] Information not available 10/01/2022 In The 14 Days Before Symptom Onset, Have You Had Close Contact With A Person Who Is Under Investigation For COVID-19 While That Person Was Ill? No MIGRATION.0301 [id number] Information not available 10/01/2022 What Type Of Diet Are You Following? REGULAR MIGRATION.0301 [id number] Information not available 10/01/2022 Do You Or Have You Ever Used E-cigarettes Or Vape? Former User Of Electronic Cigarettes MIGRATION.030 [id number] Information not available 10/01/2022 What Is The Highest Grade Or Level Of School You Have Completed Or The Highest Degree You Have Received? 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 No MIGRATION.0301 [id number] Information not available 10/01/2022 What Is The Fluoride Status Of Your Home? Unknown MIGRATION.0301 [id number] Information not available 10/01/2022 When Did You Quit Smoking? 6-10yearssincelastc igarette MIGRATION.0301 [id number] Information not available 10/01/2022 Are There Any Guns Present In Your Home? Yes MIGRATION.0301 188714 Information not available 10/01/2022 Do You Use Insect Repellent Routinely? Yes MIGRATION.0301 193017 Information not available 10/01/2022 Where Do You Live? SingleLevelHouse MIGRATION.0301 [id number] Information not available 10/01/2022 Do You Have A Medical Power Of Notch Grinder? No MIGRATION.0301 [id number] Information not available 10/01/2022 What Was The Date Of Your Most Recent Tobacco Screening? 03/19/2022 MIGRATION.0301 [id number] Information not available 10/01/2022 Do You Have Any Pets? Yes MIGRATION.0301 [id number] Information not available 10/01/2022 What Is Your Relationship Status? MIGRATION.0301 191680 Information not available 10/01/2022 Do You Use Your Seat Belt Or Car Seat Routinely? Yes MIGRATION.0301 147852 Information not available 10/01/2022 Do You Have Smoke And Carbon Monoxide Detectors In Your Home? Yes MIGRATION.0301 658115 Information not available 10/01/2022 Are You Passively Exposed To Smoke? No MIGRATION.0301 168032 Information not available 10/01/2022 Do You Or Have You Ever Used Smokeless Tobacco? Never Used Smokeless Tobacco MIGRATION.0301 [id number] Information not available 10/01/2022 Are There Any Smokers In Your House? No MIGRATION.0301 927858 Information not available 10/01/2022 Do You Feel Stressed (tense, Restless, Nervous, Or Anxious, Or Unable To Sleep At Night)? [id number] MIGRATION.0301 506384 Information not available 10/01/2022 Do You Use Any Illicit Or Recreational Drugs? No MIGRATION.0301 424634 Information not available 10/01/2022 Do You Use Sunscreen Routinely? Yes MIGRATION.0301 744725 Information not available 10/01/2022 Have You Recently Traveled Abroad? No MIGRATION.030 940817 Information not available 10/01/2022 Do You Or Have You Ever Used Any Other Forms Of Tobacco Or Nicotine? Yes MIGRATION.0301 833143 Information not available 10/01/2022 Sex: Female Functional Status Question Answer Note LastModified by Organizat ion Details LastModified Time What is your exercise level? None [id number] Information not available 10/01/2022 Mental Status None recorded. 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 N STROKE/TIA N ULCERS N OBESITY Y HISTORY WITH COMPLICATIONS WITH ANESTHES IA ? N ANEURYSM N USE OF BLOOD THINNERS N NO SIGNIFICANT PAST MEDICAL HISTORY N DIABETES, TYPE N PARATHYROID DISEASE N ENT N SEASONAL ALLERGIES Y HEARTBURN / REFLUX N HEPATITIS / LIVER DISEASE N SLEEP DISORDER N SEIZURES/EPILEPSY N HEADACHES/MIGRAINES Y CHF N PACEMAKER N DIZZINESS N HEART DISEASE/HEART PROBLEMS N AIDS/HIV N FRACTURES N HYPERTENSION N CANCER: SPECIFY N TOURETTE'S N BLOOD TRANSFUSION N ANESTHESIA COMPLICATIONS N ANEMIA/BLOOD DISORDER N CHRONIC EAR INFECTIONS N TUBERCULOSIS N Gynecological History Statement/Question Response Abnormal Pap Y Date of Last Pap Smear 11/03/2018 Current Control Method None Age at Menarche 13 Date of LMP 03/24/2021 Obstetrics History GPAL:G 0 P 0 0 0 0 Immunizations Vaccine Type Date Status Note Provider Nam e and Address Organization Details Recorded Time Influenza, split virus, quadrivalent, preservative 0 completed Not Available [facility] 05/22/2023 05:39:42 Influenza, split virus, quadrivalent, preservative 8 completed Not Available [facility] 05/22/2023 05:39:42 Past Encounters Encounter ID Performer Location Encounter Start Date Encounter Closed Date Diagnosis/Indication Diagnosis SNOMED-CT Code Diagnosis ICD10 Code Diagnosis Note [id number] _JOHN_M IGRATION_ DEFAULT_1 _1 , 04/10/2021 00:00:00 04/10/2021 12:50:45 [id number] S[facility] [place] [address] [place] [address] 06/13/2021 00:00:00 06/13/2021 12:29:05 [id number] S_[facility] Internal Med [place] [address] [place] [address] [place] [address] [address] 11/20/2021 00:00:00 11/20/2021 11:50:55 [id number] [facility] [address] [place] [address] [place] [address] 03/19/2022 00:00:00 03/24/2022 14:11:16 [id number] Madisyn Dawson MD [facility] [place] [address] [place] [address] 04/13/2023 08:46:58 04/13/2023 14:20:33 Educated about weight management [id number] Z71.3 Patient doing outstandin g on weight loss- she has lost 55 pounds since November 2021- on mounjaro and lifestyle modificati on-exercis es regularly and carb restrictiv e diet. [id number] Madisyn Dawson MD [facility] [place] [address] [place] [address] 05/12/2023 10:00:42 05/12/2023 11:58:02 Hypothyroidism 98844666 E03.9 Will send for repeat thyroid panel as patient recently started alternatin g 112 with 100 mcg every other day on her synthroid. Goal FT4 of 1.2 up to 1.4 ng/dL- will adjust as necessary. She was reminded to take her synthroid on empty stomach with glass of water and wait one hour to eat or have her coffee in morning and up to 4 hours if ever taking any heartburn or reflux medication s to help optimize absorption . Discussed paleo like diet with restrictio n of GMOs to help with energy and to optimize absorption of vitamins and minerals and reduce inflammati on. Body mass index 30+ - obesity 466116837 Z68.41 Patient was borderline diabetic and having significan t fatigue/alla int aches before going on GLP1 agonist therapy- she was able to trial on wegovy and transition to mounjaro for close to 4 month duration and has been able to lose up to 50 plus pounds- she has more energy/bet ter focus and has no side effects from therapy. She is tolerating therapy well. She has no hx of pancreatit is or medullary thyroid cancer and is willing to trial on a GLP1 agonist therapy. She was advised to contact clinic if she experience s any nausea, vomiting or significan t thyroid pain / swelling or abdominal pain so we can discuss and discontinu e and potentiall y look to other therapy. Will trial on wegovy and transition to 0.5 mg once weekly (she has mounjaro and finishing up at home) x 4 weeks then will plan to uptitrate to 1 mg once weekly thereafter with largest meal of that day as tolerated. Loss of hair 418218031 L 65.9 Continue on spironolac tone 100 mg daily. Patient aware of teratogeni c effects and not attempting at this time. Vitamin B1 2 deficiency (non anemic) 29801491 E53.8 Continue on B12 injections as patient has more energy and better focus overall. Vitamin D deficiency 347 11127 E55.9 Continue on vitamin D therapy- levels are low normal- recommend patient start on daily 4000 IU D3 with goal of 50 ng/ML to optimize bone and immune health. Impaired f asting glycemia [id number] R73.01 Send for A1C and insulin- continue on metformin once daily for insulin sensitizat ion. Recommende d she adhere to at least 1200 calorie per day intake with multiple small 300-400 calorie meals (4-5 small meals per day) on sedentary days up to 1600 calories on days she is able to undergo moderate level activity at least 30-40 minutes with 20 minutes of that time at 70% of her target heart rate in order to reach total caloric output and assist in weight loss. She is motivated and willing to go to gym daily and discussed cutting out GMOs along with preservati ves and focusing on fruits, veggies, unprocesse d beans and nuts along with meats for the bulk of her diet. Continue on [facility] protein supplement ation as this has helped with hair /skin/nail s- her protein was borderline low from March labwork. Spent up to 25 minutes preparing to see the patient (eg, review of tests), obtaining and/or reviewing separately obtained history, performing a medically appropriat e examinatio n and evaluation , counseling and educating the patient, ordering medication s, tests, along with documentin g clinical informatio n in the electronic health record, independen tly interpreti ng results and communicat ing results to the patient. Patient can be followed by PCP - she/he is aware of my resignatio n and last day of May 15. If needed his/her PCP can refer patient to another endocrinol ogist in the area. All questions /concerns answered and refills necessary at visit today. Occipital lymphadenopathy [id number] R59.0 Health Concerns Section Related Observation LastModified by Organization Detai ls LastModified Time None Recorded Concern Status LastModified by Organization Details LastModified Time None Recorded Advance Directives Directive N: Payers Encounter Date Sequence Insurance Name Policy Number Policy Patiño Covered Member ID Patiño Member ID Guarantor Name 04/13/2023 1 [place] [id number] Alka Bety [id number] [place] 05/12/2023 1 [place] [id number] Alka Bety [id number] Alka Bety Notes Date Note Type Note Provider Name and Address Organization Details Recorded Time 04/13/2023 text/html 37 yo female com es in for weight check. She has hypothyroidism and impaired fasting glucose. She has lost 55 pounds since November 2021 with dietary/lifestyle modification along with mounjaro. Madisyn Dawson MD [address], [facility] [address], [place], [address], [employer] [facility] [employer] 04/13/2023 13:21:41 05/12/2023 text/html 37 yo female com es in for follow up in management of hypothyroidism and weight management along with B12/ELDER deficiencies along with impaired fasting glucose. last seen over 2 years ago. Currently taking synthroid 100 mcg every other day with 112 mcg every other day She was having joint pains and bumped synthroid a few weeks cycles. She has lost 56 pounds over past 2 years. She was on wegovy previously up to 0.5 mg weekly and switched to mounjaro 5 mg once weekly (samples)- she has no gut issues, no nausea, no vomiting. She has more energy / better focus and overall no joint pain and more attentiveness. labs from 03/25:iron sat 35% up from 13%testosterone 23 ng/dL down from 44 ng/dLTSH of 3.43 uIU/mlFT4 of 1.1 ng/dLFT3 of 2.9 pg/mLvit D 34 ng/mLB12/folate normaldheas 152 ug/mgTPO negglucose 87 mg/dLCr normalLFT normal Madisyn Dawson MD [address], [facility] [address], [place], [address], [employer] 05/12/2023 10:53:25 OBGyn Episode No OBEpisode recorded.
--- OUTSIDE RECORDS SUMMARY | 2024-09-11 09:04 | XMS_ITS ---
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 Name Role Phone Priscial Dowling Primary Care Provider REASON FOR VISIT Reschedule Encounters Encounter Location Date Provider Diagnosis [facility] - Priscila Dowling [address] [place] [address] 07/03/2024 Priscila Dowling Plan Of Treatment No Information Progress Notes * Alka ALBERTDOB:1985 (39 yo F)Acc No.[id number]:07/03/2024 Patient: Alka NAVARRETE :1985 A ge:39 Y S ex:Female Phone: Address:[address] [place] [address] [place] [address] * true * Date: Generated for Printi ng/Faxing/eTransmitting on: 0 09/11/2024 09:03 AM 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
--- OUTSIDE RECORDS SUMMARY | 2024-09-11 09:04 | XMS_ITS | Clinical Summary ---
Author Organization [facility] Address [address] [place] [address] Care Team Providers Care Stave And Bolt Equalizer Name Role Phone Mateusz Tellez MD Primary Care Provider [phone] Source Comments [facility],non-owned Affiliates and Associated Physician Practices is amultiple site organization consisting of ambulatory clinics and hospital sitesin [place], [place], [place] and [place]. This disclosure is being madepursuant to the Care Everywhere program and may not contain all information available regarding this patient. Last updated 18.[facility] [employer] Allergies Active Allergy Reactions Criticality Noted Date Comments Penicillins GI Discomfort 03/05/2017 Medications * Be aware that medications may not be up to date on this document. Alwaysverify current medications with the patient. Medication Sig Dispensed Refills Start Date End Date Status fluticasone propionate (FLONASE) 50 MCG/ACT nasal sprayIndications:Left acute suppurative otitis media [place] 2 Sprays into each nostril once daily 1 Bottle 05/28/2016 Active albuterol HFA (PROVENTIL;VENTOLIN;[place] OAIR) 108 (90 BASE) MCG/ACT inhaler Inhale 2 puffs by mouth every 6 hours as needed Active Active Problems No known active problems Social History Tobacco Use Types Packs/Day Years Used Date Smoking Tobacco: Every Day Smokeless Tobacco: Never Tobacco Cessation:Ready to Q uit: No; Counseling Given: Yes Sex and Gender Information Value Date Recorded Sex Assigned at Not on file Gender Identity Not on file Sexual Orientation Not on file Last Filed Vital Signs Vital Sign Reading Time Taken Comments Blood Pressure 124/80 02/22/2018 7:00 PM CDT Pulse 87 02/22/2018 7:00 PM CDT Temperature 37.1 C (98.8 F) 02/22/2018 7:00 PM CDT Respiratory Rate 16 02/22/2018 7:00 PM CDT Oxygen Saturation 99% 02/22/2018 7:00 PM CDT Inhaled Oxygen Concentration - - Weight 99.8 kg (220 lb) 02/22/2018 7:00 PM CDT Height 157.5 cm (5' 2 ) 02/22/2018 7:00 PM CDT Body Mass Index 40.24 02/22/2018 7:00 PM CDT Plan of Treatment Health Maintenance Due Date Last Done Comments PAP SMEAR 1985 HIV SCREENING 2000 HEPATITIS C SCREENING 06/07/2003 DTAP/TDAP/TD VACCINES (1 - Tdap) 2004 HEPATITIS B VACCINE (1 of 3 - 19+ 3-dose series) 2004 PNEUMOCOCCAL VACCINE (1 of 2 - PCV) 2004 COVID-19 VACCINE ( - 2023-2 5 season) 2024 INFLUENZA VACCINE (#1) 2024 DEPRESSION SCREENING 08/03/2024 ZOSTER VACCINE (1 of 2) 2035 HIB VACCINE Aged Out No longer eligi ble based on patient's age to complete this topic HPV VACCINE Aged Out No longer eligi ble based on patient's age to complete this topic MENINGOCOCCAL (Group B) VACCINE Aged Out No longer eligible based on patient's age to complete this topic MENINGOCOCCAL VACCINE Aged Out No anneliese laine eligible based on patient's age to complete this topic Care Teams Stave And Bolt Equalizer Relationship Specialty Start Date End Date Mateusz Tellez MD [address] [place] [address] PCP - General Family Medicine 03/05/17
--- OUTSIDE RECORDS SUMMARY | 2024-09-11 09:05 | XMS_ITS ---
Author Organization [facility] [employer] Address [address] [place] [address] Care Team Providers Care Uniform Force Captain Name Role Phone Yudy Georges Primary Care Provider Malika Abreu Unavailable [phone] REASON FOR VISIT RE:RE:[employer] Social History Sex Assigned At : Social History Observation Description Sex Assigned At Female Encounters Encounter Location Date Provider Diagnosis [facility] [address] [place] [address] 09/06/2024 Malika Slaughter Plan Of Treatment Next Appt Details Provider Name:Malika danielson, 09/27/2024 03:45:00 PM, [address], [address], [place], [address], Progress Notes * MAGDALENA GONZALEZDOB:1985 (39 yo F)Acc No.[id number]:09/06/2024 Patient: MAGDALENA NAVARRETE :1985 A ge:39 Y S ex:Female Address:[address] [place] [address] [place], [address] * true * Date: Generated for Printi ng/Faxing/eTransmitting on: 0 09/11/2024 09:04 AM BAKER SECOND
--- OUTSIDE RECORDS SUMMARY | 2024-09-11 09:05 | XMS_ITS | Referral Summary ---
Author Organization [facility] Address [address] [place] [address] Care Team Providers Care Cultural Historian Name Role Phone Mateusz Tellez MD Primary Care Provider [phone] Source Comments [facility],non-owned Affiliates and Associated Physician Practices is amultiple site organization consisting of ambulatory clinics and hospital sitesin [place], [place], [place] and [place]. This disclosure is being madepursuant to the Care Everywhere program and may not contain all information available regarding this patient. Last updated 18.[facility] Allergies Active Allergy Reactions Criticality Noted Date Comments Penicillins GI Discomfort 03/05/2017 Medications * Be aware that medications may not be up to date on this document. Alwaysverify current medications with the patient. Medication Sig Dispensed Refills Start Date End Date Status fluticasone propionate (FLONASE) 50 MCG/ACT nasal sprayIndications:Left acute suppurative otitis media [place] 2 Sprays into each nostril once daily 1 Bottle 05/28/2016 Active albuterol HFA (PROVENTIL;VENTOLIN;[place] OAIR) 108 (90 BASE) MCG/ACT inhaler Inhale [...] 02/22/2018 7:00 PM CDT Plan of Treatment Not on file Care Teams Cultural Historian Relationship Specialty Start Date End Date Mateusz Tellez MD [facility] [place] [address] PCP - General Family Medicine 03/05/17
--- OUTSIDE RECORDS SUMMARY | 2024-09-11 09:05 | XMS_ITS ---
Author Organization [facility] [employer] Address [address] [place] [address] Care Team Providers Care Die Mounter Name Role Phone Yudy Georges Primary Care Provider Malika Abreu Unavailable [phone] REASON FOR VISIT vilazadone hci 10mg Medications Medication SIG (Take, Route, Fr equency, Duration) Notes Start Date End Date Status Vilazodone HCl 10 MG 1 tablet once a day for 7 days, 2 tablets once a day for 23 days Orally for 30 days recommended to take with food 08/30/2024 Ac tive Social History Sex Assigned At : Social History Observation Description Sex Assigned At Female Encounters Encounter Location Date Provider Diagnosis [facility] [employer] [facility] [address] [place] [address] 09/07/2024 Malika Slaughter Major depressive disorder, recurrent, mild F33.0 Assessments Encounter Date Diagnosis (ICD Code) Assessment Notes Treatment Notes Treatment Clinical Notes Section Notes 09/07/2024 Major depressive disorder, recurrent, mild (ICD-10 - F33.0) Plan Of Treatment Medication Medication Name Sig Start Date Stop Date Notes Vilazodone HCl 10 MG 1 tablet once a day for 7 days, 2 tablets once a day for 23 days Orally for 30 days 08/30/2024 Next Appt Details Provider Name:Malika danielson, 09/27/2024 03:45:00 PM, [address], [address], [place], [address], Progress Notes * MAGDALENA GONZALEZDOB:1985 (39 yo F)Acc No.[id number]:09/07/2024 Patient: MAGDALENA NAVARRETE :1985 A ge:39 Y S ex:Female Address:[address] [place] [address] * Refills Refill Vilazodone HCl Tablet, 10 MG, Orally, 53 tablet, 1 tablet once a day for 7 days, 2 tablets once a day for 23 days, 30 days * true * Date: Generated for Desmond mcmillan/Stacie/Indigoitting on: 0 09/11/2024 09:04 AM 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
--- OUTSIDE RECORDS SUMMARY | 2024-09-11 09:05 | XMS_ITS | Patient Health Summary ---
Author Organization [facility] Address [address] [place] [address] Care Team Providers Care Tax Revenue Officer Name Role Phone Mateusz Tellez MD Primary Care Provider [phone] Note from [facility],non-owned Affiliates and Associated Physician Practices is amultiple site organization consisting of ambulatory clinics and hospital sitesin [place], [place], [place] and [place]. This disclosure is being madepursuant to the Care Everywhere program and may not contain all information available regarding this patient. Last updated 18.[facility] Allergies * Penicillins(GI Discomfort) Medications * Be aware that medications may not be up to date on this document. Alwaysverify current medications with the patient. * fluticasone propionate (FLONASE) 50 MCG/ACT nasal spray(Started 05/28/2016) [place] 2 Sprays into each nostril once daily * albuterol HFA (PROVENTIL;VENTOLIN;PROAIR) 108 (90 BASE) MCG/ACT inhaler Inhale 2 puffs by mouth every 6 hours as needed Active Problems No known active problems Social [...] Mass Index 40.24 02/22/2018 7:00 PM CDT Procedures * CULTURE URINE(Performed 02/22/2018) Performed for Acute cystitis without hematuria * URINALYSIS AUTO - POINT OF CARE (AMB) STL(Performed 02/22/2018) Performed for Acute cystitis without hematuria * STREP A SCREEN - POINT OF CARE (AMB) STL(Performed 08/24/2017) Performed for Acute streptococcal pharyngitis * CULTURE URINE(Performed 03/05/2017) Performed for Cystitis without hematuria * URINALYSIS AUTO - POINT OF CARE (AMB) STL(Performed 03/05/2017) Performed for Cystitis without hematuria Results * CULTURE URINE (02/22/2018 7:11 PM CDT) Only the most recent of2 resultswithin the time period is included. Urine Culture Routine Final report [facility] ACCOUNT BILL Result 1 [facility] ACCOUNT BILL Comment: Mixed urogenital carlie Less than 10,000 colonies/mL Urine MID-STREAM URINE SPECIMEN / Unknown 02/22/2018 7:11 PM CDT 02/23/2018 Narrative Resulting Agency Comment [facility] [address] [facility] [id number] [facility] - MICROBIO LOGY ORDERABLES [facility] ACCOUNT BILL [address] [place] [address] * (ABNORMAL) URINALYSIS AUTO - POINT OF CARE (AMB) STL (02/22/2018) Only the most recent of2 resultswithin the time period is included. Clarity UA POCT clear Color UA POCT orange Leukocyte UA Positive Negative Nitrite UA POCT Positive Negative Urobilinogen UA 0.0(A) 0.1 - 1.0 Protein UA POCT azo Negative pH UA 5.0 5.0 - 8.0 pH units Blood UA negative Negative Specific [place] UA POCT 1.010 1.002 - 1.030 Ketone UA negative Negative Bilirubin UA POCT azo Negative Glucose UA negative Negative Expiration Date 05/02/2018 Lot # [id number] Verified Yes Yes Urine URINE / Unknown 02/22/2018 Lona Colon APRN-SEED ANALYSIS LABORATORY ASSISTANT LAB - POINT OF CARE ORDERABLES * (ABNORMAL) STREP A SCREEN - POINT OF CARE (AMB) STL (08/24/2017) Strep A Rapid POCT Positive(A) Negative Strep A Internal Control Present Lot # [id number] Expiration Date 04/27/2019 Throat ENTIRE THROAT (SURFACE REGION OF NECK) / Unknown 08/24/2017 Lona Colon APRN-SEED ANALYSIS LABORATORY ASSISTANT LAB - POINT OF CARE ORDERABLES Care Teams Tax Revenue Officer Relationship Specialty Start Date End Date Mateusz Tellez MD [address] [place] [address] PCP - General Family Medicine 03/05/17
[2024-09-11 09:06] VITALS: BP 141/90; PULSE 97; RESP 16; TEMP 36.7; O2SAT 100
[2024-09-11 09:55] VITALS: BP 125/83; PULSE 90; RESP 20; O2SAT 100
--- OUTSIDE RECORDS SUMMARY | 2024-09-11 09:57 | XMS_ITS | Patient Health Record ---
Author Organization [facility] Address [address] [place] [address] Care Team Providers Care Custom Protection Officer Name Role Phone Yudy Georges Primary Care Provider Malika Abreu Unavailable [phone] Lora Levy Unavailable [phone] Elida Randall Unavailable [phone] Migration, Provider Unavailable Unavailable Juan Frazier Unavailable [phone] Allergies Allergen (clinical drug ingredient) Drug/Non Drug Allergy documented on EMR Reaction Allergy Type Onset Date Status nitrofurantoin, macrocrystals / nitrofurantoin, monohydrate Macrobid dizziness Drug Allergy 01/05/2024 Active meloxicam Mobic Unknown Drug Allergy 12/08/2023 Active Soybean Unknown Drug Allergy 12/08/2023 Active Latex Latex Unknown Allergy 12/08/2023 Active Mold Unknown Allergy 12/08/2023 Active Substance with penicillin structure and antibacterial mechanism of action (substance) Penicillins Unknown Drug Allergy 12/08/2023 Active Results Component Value Reference Range Notes UDT Reviewed date:02/08/2024 09:21:25 PM Interpretation: Performing Lab: Notes/Report: THC neg 0 - 50 ng/ml Cocaine neg 0 - 300 ng/ml Amphetamine pos 0 - 1000 ng/ml Buprenorphine (BUP) neg 0 - 10 ng/ml Secobarbital (Bar) neg 0 - 300 ng/ml Oxazepam (BZO) neg 0 - 300 ng/ml 3-ybswqzazmm-2,6-zptoshim-1, 3-diphenylp yrrolidine (EDDP) neg 0 - 300 ng/ml Methamphetamine (MET) neg 0 - 1000 ng/ml Methylenedioxymethamphetamine (MDMA) neg 0 - 500 ng/ml Morphine (MOP 300/[id number]) neg 0 - 300 ng/ml Methadone (MTD) neg 0 - 300 ng/ml Phencyclidine (PCP) neg 0 - 25 ng/ml Propoxyphene (PPX) neg 0 - 300 ng/ml Nortriptyline (TCA) neg 0 - 1000 ng/ml UDT Reviewed date:01/06/2024 01:08:22 PM Interpretation: Performing Lab: Notes/Report: THC neg 0 - 50 ng/ml Cocaine neg Amphetamine neg Buprenorphine (BUP) neg Secobarbital (Bar) neg Oxazepam (BZO) neg 2-utvwgrckly-5,8-anluhqcq-2, 3-diphenylp yrrolidine (EDDP) neg Methamphetamine (MET) neg Methylenedioxymethamphetamine (MDMA) neg Morphine (MOP 300/SEY8307) neg Methadone (MTD) neg Phencyclidine (PCP) neg Propoxyphene (PPX) neg Nortriptyline (TCA) neg UDT Reviewed date:06/10/2024 03:15:30 PM Interpretation: Performing Lab: Notes/Report: THC n 0 - 50 ng/ml Cocaine n 0 - 300 ng/ml Amphetamine n 0 - 1000 ng/ml Buprenorphine (BUP) n 0 - 10 ng/ml Secobarbital (Bar) n 0 - 300 ng/ml Oxazepam (BZO) n 0 - 300 ng/ml 6-orocqwcvgr-2,4-beaayzsd-1, 3-diphenylp yrrolidine (EDDP) n 0 - 300 ng/ml Methamphetamine (MET) n 0 - 1000 ng/ml Methylenedioxymethamphetamine (MDMA) n 0 - 500 ng/ml Morphine (MOP 300/XUT0687) n 0 - 300 ng/ml Methadone (MTD) n 0 - 300 ng/ml Phencyclidine (PCP) n 0 - 25 ng/ml Propoxyphene (PPX) n 0 - 300 ng/ml Nortriptyline (TCA) n 0 - 1000 ng/ml Oxycodone n 0 - 300 ng/ml UDT Reviewed date:04/14/2024 09:53:35 AM Interpretation: Performing Lab: Notes/Report: THC n 0 - 50 ng/ml Cocaine n 0 - 300 ng/ml Amphetamine p 0 - 1000 ng/ml Buprenorphine (BUP) n 0 - 10 ng/ml Secobarbital (Bar) n 0 - 300 ng/ml Oxazepam (BZO) n 0 - 300 ng/ml 5-uxyiqefemt-7,0-jmqbkbxe-6, 3-diphenylp yrrolidine (EDDP) n 0 - 300 ng/ml Methamphetamine (MET) n 0 - 1000 ng/ml Methylenedioxymethamphetamine (MDMA) n 0 - 500 ng/ml Morphine (MOP 300/FWM8255) n 0 - 300 ng/ml Methadone (MTD) n 0 - 300 ng/ml Phencyclidine (PCP) n 0 - 25 ng/ml Propoxyphene (PPX) n 0 - 300 ng/ml Nortriptyline (TCA) n 0 - 1000 ng/ml Oxycodone n 0 - 300 ng/ml DRUG MONITOR,METHYLPHENID ME TAB, QN, URINE ([id number]) Reviewed date:06/21/2024 11:36:31 PM Interpretation: Performing Lab:[facility], [employer], [facility] HospitalTgesND[address] Ge Alvarez, Director - [address] [facility] Notes/Report: FASTING: NO Ritalinic Acid 5842 <100 ng/mL Ritalinic Acid Comments See Ritalinic Acid Notes, LDT Notes Notes and Comments This drug testing is for medical treatment only. Analysis was performed as non-forensic testing and these results should be used only by healthcare providers to render diagnosis or treatment, or to monitor progress of medical conditions. Ritalinic Acid Notes: Ritalinic Acid detected is consistent with the use of the drug Methylphenidate. LDT Notes: Confirmation tests were developed and their analytical performance characteristics have been determined by [employer]. It has not been cleared or approved by the FDA. This assay has been validated pursuant to the CLIA regulations and is used for clinical purposes. Healthcare Providers needing Interpretation assistance, please contact us at [phone] ( ) M-F, 8am to 10pm EST Reason For Referral No Information Medications Medication SIG (Take, Route, Frequency, Duration) Notes Start Date End Date Status lamoTRIgine 200 MG 1 tablet Oral Once a day for 90 days Specific hammerer tab: Pt reports has discussed with pharmacy. Please send pill with imprint D 96 is Blue, Six-sided and has been identified as Lamotrigine 200 mg. It is supplied by [employer]. Active Synthroid 112 MCG 1 tablet in the morning on an empty stomach Orally Once a day Active Spironolactone 50 MG Oral for 90 Days Active Desvenlafaxine ER 100 MG 1 tablet once a day for 7 days, 0.5 tablet once a day for 14 days Orally for 21 days tapering off Active Liothyronine Sodium 5 MCG Oral for 90 Days Active Zepbound 5 MG/0.5ML Subcutaneous for 28 Days Active Cetirizine HCl 10 MG TAKE 1 TABLET BY MOUTH IN THE MORNING Oral for 90 Days Active Cyanocobalamin 1000 MCG/ML Injection for 90 Days Active Ergocalciferol 1.25 MG (69007 UT) Oral 12/08/2023 Active ProAir HFA 108 (90 Base) MCG/ACT Inhalation 12/08/2023 Active busPIRone HCl 10 MG 1 tablet Orally three times a day for 90 days 06/10/2024 11/28/2024 Active Qelbree 200 MG 1 capsule Oral Once a day for 90 days 06/15/2024 11/29/2024 Active Vilazodone HCl 10 MG 1 tablet once a day for 7 days, 2 tablets once a day for 23 days Orally for 30 days recommended to take with food 08/30/2024 Active Immunizations Vaccine Route Administration Date Status Comme nts Influenza virus vaccine, quadrivalent (IIV4), split virus, 0.25 mL dosage Unknown 04/28/2018 Administered Influenza virus vaccine, quadrivalent (IIV4), split virus, 0.25 mL dosage Unknown 05/28/2020 Administered Social History Tobacco Use: Social History Observation Description Date Details (start date - stop date) Former Smoker NA - NA Sex Assigned At : Social History Observation Description Sex Assigned At Female Household Question Answer Notes Marital status: Tobacco Control (Standard) Question Answer Notes Tobacco use: Former smoker AUDIT-C (Standard) Question Answer Notes Did you have a drink containing alcohol in the p ast year? No Problems Problem Type SNOMED Code ICD Code Onset Dates Problem Status W/U Status Risk Notes Problem Mild recurrent major depression (80511551) Major depressive disorder, recurrent, mild (F33.0) 12/08/19 24 Active confirmed Problem Moderate recurrent major depression (99936115) Major depressive disorder, recurrent, moderate (F33.1) Active confirmed Problem Generalized anxiety disorder (34562562) Generalized anxiety disorder (F41.1) 12/08/19 24 Active confirmed Problem Attention deficit hyperactivity disorder, combined type (71452374) Attention-deficit hyperactivity disorder, combined type (F90.2) 12/08/19 24 Active confirmed Problem Insomnia (907546353) Insomnia, unspecified (G47.00) Active confirmed Problem Insomnia disorder related to another mental disorder (71228118) Insomnia related to another mental disorder (F51.05) Active confirmed Vital Signs Heart Rate 90 /min 08/30/2024 Blood pressure diastolic 85 mm Hg 08/30/2024 Height-cm 157.48 cm 08/30/2024 Weight-kg 118.39 kg 08/30/2024 Height 62.00 in 08/30/2024 Blood pressure systolic 136 mm Hg 08/30/2024 Weight 261 lbs 08/30/2024 BMI 47.73 kg/m2 08/30/2024 Encounters Encounter Location Date Provider Diagnosis [facility] [employer] [facility] [address] [facility] [address] [place] [address] 02/19/2024 Lora Blankenship [facility] [address] [address] 04/22/2024 Lora Blankenship [facility] [address] [address] 09/18/2023 Lora Blankenship Attention-deficit hyperactivity disorder, combined type F90.2 ; Major depressive disorder, recurrent, moderate F33.1 ; Generalized anxiety disorder F41.1 and Insomnia, unspecified G47.00 [facility] [employer] [facility] [address] [facility] [address] [place] [address] 09/18/2023 Elida Randall [facility] [address] [place] [address] 10/20/2023 Elida Randall Generalized anxiety disorder F41.1 ; Attention-deficit hyperactivity disorder, combined type F90.2 ; Insomnia, unspecified G47.00 and Major depressive disorder, recurrent, moderate F33.1 [facility] [place] [address] [place] [address] 10/27/2023 Lora Blankenship Major depressive disorder, recurrent, moderate F33.1 ; Attention-deficit hyperactivity disorder, combined type F90.2 and Generalized anxiety disorder F41.1 [place] [address] [place] [address] 11/12/2023 Lora Blankenship Attention-deficit hyperactivity disorder, combined type F90.2 ; Major depressive disorder, recurrent, moderate F33.1 and Generalized anxiety disorder F41.1 [place] [address] [place] [address] 12/08/2023 Elida Randall Insomnia, unspecifie d G47.00 ; Major depressive disorder, recurrent, mild F33.0 ; Attention-deficit hyperactivity disorder, combined type F90.2 and Generalized anxiety disorder F41.1 [place] [address] [place] [address] 01/05/2024 Elida Randall Major depressive disorder, recurrent, mild F33.0 ; Attention-deficit hyperactivity disorder, combined type F90.2 ; Generalized anxiety disorder F41.1 and Insomnia, unspecified G47.00 [place] [address] [place] [address] 01/11/2024 Lora Blankenship Generalized anxiety disorder F41.1 ; Major depressive disorder, recurrent, moderate F33.1 and Attention-deficit hyperactivity disorder, combined type F90.2 [place] [address] [place] [address] 02/02/2024 Elida Randall Major depressive disorder, recurrent, mild F33.0 ; Attention-deficit hyperactivity disorder, combined type F90.2 ; Generalized anxiety disorder F41.1 and Insomnia, unspecified G47.00 [place] [address] [place] [address] 02/05/2024 Lora Blankenship Major depressive disorder, recurrent, mild F33.0 ; Attention-deficit hyperactivity disorder, combined type F90.2 and Generalized anxiety disorder F41.1 [place] [address] [place] [address] 03/04/2024 Lora Blankenship Major depressive disorder, recurrent, mild F33.0 ; Attention-deficit hyperactivity disorder, combined type F90.2 and Generalized anxiety disorder F41.1 [facility] [address] [place] [address] 03/04/2024 Juankimberly Anntanna Bipolar 2 disorder F31.81 and ADHD F90.9 [facility] [address] [place] [address] 03/18/2024 Lora Blankenship Major depressive disorder, recurrent, mild F33.0 ; Generalized anxiety disorder F41.1 and Attention-deficit hyperactivity disorder, combined type F90.2 [facility] [address] [place] [address] 04/13/2024 Elida Randall Major depressive disorder, recurrent, mild F33.0 ; Attention-deficit hyperactivity disorder, combined type F90.2 ; Generalized anxiety disorder F41.1 and Insomnia, unspecified G47.00 [place] [address] [place] [address] 05/02/2024 Lora Blankenship Major depressive disorder, recurrent, moderate F33.1 ; Generalized anxiety disorder F41.1 and Attention-deficit hyperactivity disorder, combined type F90.2 [facility] [address] [place] [address] 05/13/2024 Elida Randall Major depressive disorder, recurrent, mild F33.0 ; Attention-deficit hyperactivity disorder, combined type F90.2 ; Generalized anxiety disorder F41.1 and Insomnia, unspecified G47.00 [facility] [address] [place] [address] 06/10/2024 Malika Slaughter Attention-deficit hyperactivity disorder, combined type F90.2 ; Generalized anxiety disorder F41.1 ; Major depressive disorder, recurrent, mild F33.0 and Insomnia related to another mental disorder F51.05 [facility] [address] [place] [address] 08/02/2024 Malika Slaughter Major depressive disorder, recurrent, mild F33.0 ; Attention-deficit hyperactivity disorder, combined type F90.2 ; Generalized anxiety disorder F41.1 and Insomnia related to another mental disorder F51.05 [facility], [facility] [address] [place] [address] 08/30/2024 Malika Slaughter Major depressive disorder, recurrent, mild F33.0 ; Attention-deficit hyperactivity disorder, combined type F90.2 ; Generalized anxiety disorder F41.1 and Insomnia related to another mental disorder F51.05 [facility], [facility] [address] [place] [address] 09/18/2023 Provider Migration [facility], [facility] [address] [place] [address] 10/05/2023 Provider Migration [facility], [facility] [address] [place] [address] 10/27/2023 Provider Migration [facility], [facility] [address] [place] [address] 12/19/2023 Provider Migration [facility], [facility] [address] [place] [address] 12/20/2023 Provider Migration [facility], [facility] [address] [place] [address] 01/06/2024 Elida Randall Attention-deficit hyperactivity disorder, combined type F90.2 [facility], [facility] [address] [place] [address] 01/06/2024 Elida Randall Attention-deficit hyperactivity disorder, combined type F90.2 [facility], [facility] [address] [place] [address] 01/06/2024 Elida Randall [facility], [facility] [address] [place] [address] 01/21/2024 Elida Randall [facility], [facility] [address] [place] [address] 02/09/2024 Elida Randall [facility], [facility] [address] [place] [address] 03/23/2024 Elida Randall Bipolar 2 disorder F31.81 [facility], [facility] [address] [place] [address] 04/14/2024 Elida Randall [facility], [facility] [address] [place] [address] 06/13/2024 Malika Slaughter [facility], [facility] [address] [place] [address] 01/05/2024 Elida Randall [facility], [facility] [address] [place] [address] 01/06/2024 Elida Randall [facility], [facility] [address] [place] [address] 01/12/2024 Elida Randall Attention-deficit hyperactivity disorder, combined type F90.2 [facility], [facility] [address] [place] [address] 01/20/2024 Elida Randall [facility], [facility] [address] [place] [address] 01/28/2024 Elida Randall [facility], [facility] [address] [place] [address] 02/05/2024 Elida Randall [facility], [facility] [address] [place] [address] 02/09/2024 Elida Randall [facility], [facility] [address] [place] [address] 03/21/2024 Elida Randall Bipolar 2 disorder F31.81 [facility], [facility] [address] [place] [address] 04/05/2024 Elida Randall [facility], [facility] [address] [place] [address] 04/07/2024 Elida Adrienneosfamiliak Bipolar 2 disorder F31.81 [facility], [facility] [address] [place] [address] 04/08/2024 Elida Randall [facility], [facility] [address] [place] [address] 04/21/2024 Elida Randall [facility], [facility] [address] [place] [address] 04/23/2024 Elida Randall [facility], [facility] [address] [place] [address] 04/23/2024 Elida Randall Major depressive disorder, recurrent, mild F33.0 [facility], [facility] [address] [place] [address] 04/25/2024 Elida Randall [facility], [facility] [address] [place] [address] 05/02/2024 Elida Randall [facility], [facility] [address] [place] [address] 2024 Malika Slaughter [facility], [facility] [address] [place] [address] 06/13/2024 Malika Slaughter [facility], [facility] [address] [place] [address] 07/08/2024 Malika Slaughter [facility], [facility] [address] [place] [address] 07/28/2024 Malika Slaughter [facility], [facility] [address] [place] [address] 08/22/2024 Malika Slaughter [facility], [facility] [address] [place] [address] 08/31/2024 Malika Slaughter Attention-deficit hyperactivity disorder, combined type F90.2 [facility], [facility] [address] [place] [address] 09/02/2024 Malika Slaughter [facility], [facility] [address] [place] [address] 09/02/2024 Malika Slaughter Major depressive disorder, recurrent, mild F33.0 [facility], [facility] [address] [place] [address] 09/06/2024 Malika Slaughter [facility], [facility] [address] [place] [address] 09/07/2024 Malika Slaughter Major depressive disorder, recurrent, mild F33.0 Assessments Encounter Date Diagnosis (ICD Code) Assessment Notes Treatment Notes Treatment Clinical Notes Section Notes 03/04/2024 Bipolar 2 disorder (ICD-10 - F31.81) 1. Depression: - She reports ongoing depression despite being on Lamictal for over a year. - Zoloft was ineffective and discontinued by her. - Bupropion is in the red category according to gene testing. - Plan: Discontinue Sertraline and initiate Desvenlafaxine (Pristiq) as an SNRI option. Reassess in one month. 2. ADHD: - She is currently on Adderall 20 mg, recently increased, but reports it is not effective. - Non-stimulant medications have been tried previously. - Plan: Continue Adderall 20 mg for now and reassess in one month. 3. Bipolar Disorder: - She is stable on Lamotrigine 200 mg daily. - No rashes or redness reported. - Plan: Continue Lamotrigine 200 mg daily. 4. Medication Refills: - She requests a refill on Adderall, 30 tabs. - Plan: Refill Adderall prescription and call it into [facility] pharmacy. 5. Additional Medications: - She is currently on spironolactone and occasionally takes metformin. - Strattera was discontinued due to fatigue. - Plan: Continue spironolactone and metformin as needed. 6. [facility]: - She is interested in the walk-in clinic downstairs for medication initiation until they can see their psychiatrist. - Plan: Inform her that she needs to see the provider after 30 days for refills and discuss the removal of Spravato (esketamine) treatment for resistant depression from the downstairs clinic. Follow-up: Schedule a follow-up appointment in one month to reassess the effectiveness of Desvenlafaxine and Adderall. 03/23/2024 Bipolar 2 disorder (ICD-10 - F31.81) 04/07/2024 Bipolar 2 disorder (ICD-10 - F31.81) 04/13/2024 Major depressive disorder, recurrent, mild (ICD-10 - F33.0) stop pristiq-monito r mood/anxiety cont lamotrigine 200mg daily-90 day sent 03/23 cont counseling note: Had failed several antidepressants, felt symptoms worsened overall. *Have considered bipolar type II as differential, hypomania hx not clear, hx worsening with antidepressants. Is on lamotrigine for mood stabilization/depr ession/irritabilit y. 03/18/2024 Major depressive disorder, recurrent, mild (ICD-10 - F33.0) Anxiety and Emotional Distress Related to Unresolved Family Issues - Assessment: The patient experiences anxiety and emotional distress related to unresolved family issues. - Plan: - Encouraged the patient to continue discussing her feelings and emotions with her support system, including her and friends. - Monitor anxiety levels and adjust treatment as needed. - Patient reports feeling better after writing a letter expressing her feelings about her father, though it caused some anxiety initially. Relationship Issues with - Assessment: The patient experiences relationship issues with her . - Plan: - Encouraged open communication with her - Suggested couples therapy to address disconnection and improve communication. - Recommended engaging in shared activities and hobbies to strengthen their waters and connection. - Consider suggesting activities like biking or hiking together, possibly using electric bikes for joint outings. 03/18/2024 Generalized anxiety disorder (ICD-10 - F41.1) Anxiety and Emotional Distress Related to Unresolved Family Issues - Assessment: The patient experiences anxiety and emotional distress related to unresolved family issues. - Plan: - Encouraged the patient to continue discussing her feelings and emotions with her support system, including her and friends. - Monitor anxiety levels and adjust treatment as needed. - Patient reports feeling better after writing a letter expressing her feelings about her father, though it caused some anxiety initially. Relationship Issues with - Assessment: The patient experiences relationship issues with her . - Plan: - Encouraged open communication with her - Suggested couples therapy to address disconnection and improve communication. - Recommended engaging in shared activities and hobbies to strengthen their waters and connection. - Consider suggesting activities like biking or hiking together, possibly using electric bikes for joint outings. 03/21/2024 Bipolar 2 disorder (ICD-10 - F31.81) 04/23/2024 Major depressive disorder, recurrent, mild (ICD-10 - F33.0) 05/02/2024 Major depressive disorder, recurrent, moderate (ICD-10 - F33.1) ADHD and Medication Management - Assessment: Patient reported being taken off Adderall and antidepressant simultaneously, leading to a significant emotional reaction. - Plan: Awaiting response from [facility] regarding medication adjustments. Monitor patient's response to any changes in medication. Relationship Issues - Assessment: Patient discussed ongoing challenges in her relationship with her and concerns about their compatibility. - Plan: Continue to explore relationship dynamics in therapy sessions and work on communication strategies to improve understanding and support between the patient and her . Family Dynamics and Emotional Immaturity - Assessment: Patient expressed ongoing resentment related to her past and difficulties in her relationships with her parents. Discussed concepts of emotional immaturity in parents and its impact on the patient's upbringing. - Plan: - Continue to explore family dynamics and emotional immaturity in therapy sessions. - Work on strategies to address resentment and improve communication with family members. Social Support and Friendships - Assessment: Patient reconnected with an old friend and is working on rebuilding their relationship. - Plan: - Encourage the patient to continue fostering supportive friendships and engage in social activities that promote emotional well-being. - Monitor for any potential issues related to trauma bonding. 05/02/2024 Generalized anxiety disorder (ICD-10 - F41.1) ADHD and Medication Management - Assessment: Patient reported being taken off Adderall and antidepressant simultaneously, leading to a significant emotional reaction. - Plan: Awaiting response from [facility] regarding medication adjustments. Monitor patient's response to any changes in medication. Relationship Issues - Assessment: Patient discussed ongoing challenges in her relationship with her and concerns about their compatibility. - Plan: Continue to explore relationship dynamics in therapy sessions and work on communication strategies to improve understanding and support between the patient and her . Family Dynamics and Emotional Immaturity - Assessment: Patient expressed ongoing resentment related to her past and difficulties in her relationships with her parents. Discussed concepts of emotional immaturity in parents and its impact on the patient's upbringing. - Plan: - Continue to explore family dynamics and emotional immaturity in therapy sessions. - Work on strategies to address resentment and improve communication with family members. Social Support and Friendships - Assessment: Patient reconnected with an old friend and is working on rebuilding their relationship. - Plan: - Encourage the patient to continue fostering supportive friendships and engage in social activities that promote emotional well-being. - Monitor for any potential issues related to trauma bonding. 05/13/2024 Major depressive disorder, recurrent, mild (ICD-10 - F33.0) cont pristiq 100mg qam cont lamotrigine 200mg daily cont counseling note: Had failed several antidepressants, felt symptoms worsened overall. *Have considered bipolar type II as differential, hypomania hx not clear, hx worsening with antidepressants. Is on lamotrigine for mood stabilization/depr ession/irritabilit y. 03/04/2024 Major depressive disorder, recurrent, mild (ICD-10 - F33.0) Childhood Trauma and Family Dysfunction - Assessment: The patient has a history of childhood trauma and family dysfunction. - Plan: - Continue individual therapy to address unresolved emotions and process traumatic experiences. - Encourage the patient to maintain healthy boundaries with family members and seek support from trusted individuals. Anxiety and Panic Attacks - Assessment: The patient experiences anxiety and panic attacks. - Plan: - Encouraged the patient to practice relaxation techniques and engage in self-care activities to manage anxiety symptoms. Attention Deficit Hyperactivity Disorder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
--- OUTSIDE RECORDS SUMMARY | 2024-09-11 09:57 | XMS_ITS | Referral Summary ---
Author Organization [facility] Address [address] [place] [address] Care Team Providers Care Feather Edger Name Role Phone Mateusz Tellez MD Primary Care Provider [phone] Source Comments [facility],non-owned Affiliates and Associated Physician Practices is amultiple site organization consisting of ambulatory clinics and hospital sitesin [place], [place], [place] and [place]. This disclosure is being madepursuant to the Care Everywhere program and may not contain all information available regarding this patient. Last updated 18.[facility] Allergies Active Allergy Reactions Criticality Noted Date Comments Penicillins GI Discomfort 03/05/2017 Medications * Be aware that medications may not be up to date on this document. Alwaysverify current medications with the patient. Medication Sig Dispensed Refills Start Date End Date Status fluticasone propionate (FLONASE) 50 MCG/ACT nasal sprayIndications:Left acute suppurative otitis media [place] 2 Sprays into each nostril once daily 1 Bottle 05/28/2016 Active albuterol HFA (PROVENTIL;VENTOLIN;NM OAIR) 108 (90 BASE) MCG/ACT inhaler Inhale [...] of Treatment Not on file Care Teams Feather Edger Relationship Specialty Start Date End Date Mateusz Tellez MD [facility] [place] [address] PCP - General Family Medicine 03/05/17
--- OUTSIDE RECORDS SUMMARY | 2024-09-11 09:57 | XMS_ITS | Clinical Summary ---
Author Organization [facility] Address [address] [place] [address] Care Team Providers Care Field Geologist Name Role Phone Mateusz Tellez MD Primary Care Provider [phone] Source Comments [facility],non-owned Affiliates and Associated Physician Practices is amultiple site organization consisting of ambulatory clinics and hospital sitesin [place], [place], [place] and [place]. This disclosure is being madepursuant to the Care Everywhere program and may not contain all information available regarding this patient. Last updated 18.[facility] Allergies Active Allergy Reactions Criticality Noted Date Comments Penicillins GI Discomfort 03/05/2017 Medications * Be aware that medications may not be up to date on this document. Alwaysverify current medications with the patient. Medication Sig Dispensed Refills Start Date End Date Status fluticasone propionate (FLONASE) 50 MCG/ACT nasal sprayIndications:Left acute suppurative otitis media [place] 2 Sprays into each nostril once daily 1 Bottle 05/28/2016 Active albuterol HFA (PROVENTIL;VENTOLIN;VA OAIR) 108 (90 BASE) MCG/ACT inhaler Inhale [...] age to complete this topic Care Teams Field Geologist Relationship Specialty Start Date End Date Mateusz Tellez MD [address] [place] [address] PCP - General Family Medicine 03/05/17
--- OUTSIDE RECORDS SUMMARY | 2024-09-11 09:57 | XMS_ITS | Patient Health Summary ---
Author Organization [facility] Address [address] [place] [address] Care Team Providers Care Feed Inspection Supervisor Name Role Phone Mateusz Tellez MD Primary Care Provider [phone] Note from [facility],non-owned Affiliates and Associated Physician Practices is amultiple site organization consisting of ambulatory clinics and hospital sitesin [place], [place], [place] and [place]. This disclosure is being madepursuant to the Care Everywhere program and may not contain all information available regarding this patient. Last updated 18.[facility] Allergies * Penicillins(GI Discomfort) Medications * Be aware that medications may not be up to date on this document. Alwaysverify current medications with the patient. * fluticasone propionate (FLONASE) 50 MCG/ACT nasal spray(Started 05/28/2016) [place] 2 Sprays into each nostril once daily [...] CDT 02/23/2018 Narrative Resulting Agency Comment [facility] [address] [facility] [phone] [facility] - MICROBIO LOGY ORDERABLES [facility] ACCOUNT BILL [address] [place] [address] * (ABNORMAL) URINALYSIS AUTO - POINT OF CARE (AMB) STL (02/22/2018) Only the most recent of2 resultswithin the time period is included. Clarity UA POCT clear Color UA POCT orange Leukocyte UA Positive Negative Nitrite UA POCT Positive Negative Urobilinogen UA 0.0(A) 0.1 - 1.0 Protein UA POCT azo Negative pH UA 5.0 5.0 - 8.0 pH units Blood UA negative Negative Specific [place] UA POCT 1.010 1.002 - 1.030 Ketone UA negative Negative Bilirubin UA POCT azo Negative Glucose UA negative Negative Expiration Date 05/02/2018 Lot # [id number] Verified Yes Yes Urine URINE / Unknown 02/22/2018 Lona Colon APRN-[facility] - POINT OF CARE ORDERABLES * (ABNORMAL) STREP A SCREEN - POINT OF CARE (AMB) STL (08/24/2017) Strep A Rapid POCT Positive(A) Negative Strep A Internal Control Present Lot # [id number] Expiration Date 04/27/2019 Throat ENTIRE THROAT (SURFACE REGION OF NECK) / Unknown 08/24/2017 Lona Colon APRN[facility] - POINT OF CARE ORDERABLES Care Teams Feed Inspection Supervisor Relationship Specialty Start Date End Date Mateusz Tellez MD [address] [place] [address] PCP - General Family Medicine 03/05/17
--- NOTE | 2024-09-11 10:20 | ED_ITS ---
HPI - General Adult General Chief complaint: Headache Stated complaint: migraine, n/v Time Seen by Provider: 09/11/24 09:47 History of Present Illness HPI narrative: 39-year-old female presenting to the emergency department for evaluation for migraine headache. Patient has been having increasing migraines since July. This is the patient's 1st migraine in September. Patient was scheduled to have an outpatient MRI but it was delayed due to insurance reasons. MRI was rescheduled for September 26. Patient does present to the emergency department for recurrent migraine that is been going on for the last 2 days. Patient describes bilateral pressure. Patient does have associated nausea and vomiting. Patient denies any focal numbness or weakness or other neurologic changes. Patient has not had any neuro imaging since the onset of the migraines. Patient reports he did have hydrocephalus as an infant but no history of shunt placement. Patient does have history of hypothyroid. Patient does have an extensive psychiatric history and is on multiple psych medications. Patient denies any other significant past medical history. Related Data Allergies Allergy/AdvReac Type Severity Reaction Status Date / Time ciprofloxacin Allergy Intermediate Rash Verified 09/11/24 09:59 guaifenesin (From [employer]tex [place]) AdvReac Dizziness Verified 09/11/24 11:27 Penicillins AdvReac Vomiting Verified 09/11/24 11:27 phenylephrine (From [employer] [place]) AdvReac Dizziness Verified 09/11/24 11:27 phenylpropanolamine (From AdvReac Dizziness Verified 09/11/24 11:27 Entex [place]) Review of Systems Review of Systems: All systems reviewed & are unremarkable except as noted in HPI and below Exam Narrative: APPEARANCE: Well appearing, no pain, no distress, well-nourished. HEAD: normocephalic, atraumatic. EYES: PERRLA/EOMI, conjunctivae clear. NOSE: Normal no drainage EARS:TMS clear with good light reflex. THROAT: Pharynx clear, no exudate. NECK: Supple. No adenopathy, no masses. RESPIRATORY: Airway patent, respirations nonlabored. Clear to auscultation bilaterally, no rales, rhonchi, wheezing. CARDIOVASCULAR: Regular rate and rhythm without murmurs rubs or gallops. ABDOMINAL: Soft, nontender, nondistended, normal bowel sounds MUSCULOSKELETAL: Moves all extremities. Strength/ROM intact, No edema, No calf tenderness. NEURO: Alert. Cranial nerves II through XII intact. Grossly intact with no neuro deficit SKIN: Warm, dry. Normal Color Course Vital Signs Vital signs: Vital Signs Temperature 98.1 F 09/11/24 09:06 Pulse Rate 97 09/11/24 09:06 Respiratory Rate 16 09/11/24 09:06 Blood Pressure 141/90 H 09/11/24 09:06 Pulse Oximetry 100 09/11/24 09:06 Oxygen Delivery Room Air 09/11/24 09:06 Temperature 98.1 F 09/11/24 09:06 Pulse Rate 76 09/11/24 12:16 Respiratory Rate 18 09/11/24 12:16 Blood Pressure 141/79 H 09/11/24 12:16 Pulse Oximetry 98 09/11/24 12:16 Oxygen Delivery Room Air 09/11/24 09:55 Medical Decision Making MDM Narrative Medical decision making narrative: 39-year-old female presented emergency department for evaluation for recurrent migraine. Head CT was ordered due to the relative acute nature of the migraines that started in July. Head CT was negative for acute finding. Patient does have an MRI scheduled for later in September. Patient was treated with IV Compazine, IV Benadryl and once the head CT was negative IV Toradol was ordered. On re-evaluation patient does feel significantly improved. Patient and family are updated on the results of the workup and encouraged to continue with the plan for the outpatient MRI. All questions concerns were addressed. Differential Diagnosis Differential Diagnosis: Migraine, intracranial abnormality, abdominal,, subarachnoid hemorrhage Vital Signs Vital Signs: Vital Signs Temperature 98.1 F 09/11/24 09:06 Pulse Rate 97 09/11/24 09:06 Respiratory Rate 16 09/11/24 09:06 Blood Pressure 141/90 H 09/11/24 09:06 Pulse Oximetry 100 09/11/24 09:06 Oxygen Delivery Room Air 09/11/24 09:06 Temperature 98.1 F 09/11/24 09:06 Pulse Rate 76 09/11/24 12:16 Respiratory Rate 18 09/11/24 12:16 Blood Pressure 141/79 H 09/11/24 12:16 Pulse Oximetry 98 09/11/24 12:16 Oxygen Delivery Room Air 09/11/24 09:55 Imaging Data Radiologist's impression: Impressions Head CT 09/11/24 11:19 IMPRESSION: 1. Normal brain. 2. Sinus disease dependent mucus in the left sphenoid sinus. Discharge Plan Discharge Clinical Impression: Headache, Migraine Patient Disposition: Home, Self-Care Condition: Stable Instructions: Antibiotic Form, Migraine Headache (ED) Additional Instructions: Tylenol and ibuprofen for pain control. Drink plenty of fluids. Continue to have the outpatient follow-up, including MRI, as scheduled. If you have any worsening symptoms then please call or return to the emergency department. Patient Language: Honduran Follow-up/Referrals: Milton,BRIDGETTE Jimenes [Primary Care Provider] -
[2024-09-11] MEDS: SODIUM CHLORIDE 0.9% IV 1,000 ML 999 ML IV CONT (10:36)
[2024-09-11] MEDS: diphenhydrAMINE HCl INJ 50 MG/ML VIAL IV PUSH (10:36)
[2024-09-11] MEDS: PROCHLORPERAZINE EDISYLATE 10 MG/2 ML VIAL IV PUSH (10:36)
[2024-09-11 10:48] VITALS: BP 137/89; PULSE 94; RESP 18; O2SAT 100
[2024-09-11] MEDS: KETOROLAC 15 MG/ML VIAL (*BKC) IV PUSH (11:40)
[2024-09-11 12:16] VITALS: BP 141/79; PULSE 76; RESP 18; O2SAT 98
== END 2024-09-11 12:18 | disposition home or self-care (01) ==
PROVIDERS: Emergency Provider Emergency Medicine; PCP Physician Assistant
DX: G43.909 Migraine, unspecified, not intractable, without status migrainosus (principal); E03.9 Hypothyroidism, unspecified; J32.3 Chronic sphenoidal sinusitis
CPT/HCPCS: 70450; 96361; 96374; 96375; 99284; J0780; J1200; J1885; J7030

== ENCOUNTER 2024-09-26 14:13 | Outpatient (CLI) | payer OTHER, SELFPAY ==
--- NOTE | ~2024-09-26 | MR_ITS ---
EXAMINATION: MR brain/brain stem wo/w con DATE: 09/26/2024 14:55 INDICATION: Headache. TECHNIQUE: Magnetic resonance imaging (MRI) of the brain and brainstem was performed without and with 20 mL MultiHance intravenous contrast. COMPARISON: Head CT 09/11/24 FINDINGS: There is a small focus of increased T2-weighted signal intensity in the kiara, which is norm al as an isolated finding. There is no intracranial hemorrhage, acute infarction, or abnormal intracr anial mass lesion. The ventricles are normal in size. The orbits are normal. The paranasal sinuses ar e clear. The mastoid air cells are normal. IMPRESSION: 1. Normal brain. Reviewed, dictated and finalized at location A. [employer] IMPRESSION: 1. Normal brain.
== END 2024-09-26 14:14 | disposition home or self-care (01) ==
PROVIDERS: PCP Physician Assistant; Visit Provider Physician Assistant
DX: R51.9 Headache, unspecified (principal)
CPT/HCPCS: 70553; A9577

== ENCOUNTER 2025-05-16 15:19 | Outpatient (CLI) | payer OTHER, SELFPAY ==
--- NOTE | ~2025-05-16 | US_ITS ---
EXAMINATION: US thyroid DATE: 05/16/2025 15:39 INDICATION: Thyroid nodule. TECHNIQUE: Multiple ultrasound images of the thyroid were obtained. COMPARISON: None. FINDINGS: The right thyroid lobe measures 4.9 x 1.4 x 1.3 cm. The left thyroid lobe measures 5.7 x 1.4 x 1.1 cm. In the right thyroid lobe, there is a 6 mm solid, hypoechoic, wider than tall nodule with ill-defined margin without echogenic foci (TI-RADS TR4). IMPRESSION: 1. Small thyroid nodule, likely not clinically significant. No follow-up is needed. Reviewed, dictated and finalized at location E. IMPRESSION: 1. Small thyroid nodule, likely not clinically significant. No follow-up is nee ded.
== END 2025-05-16 15:20 | disposition home or self-care (01) ==
PROVIDERS: PCP Physician Assistant; Visit Provider Internal Medicine Endocrinology, Diabetes & Metabolism
DX: E04.1 Nontoxic single thyroid nodule (principal)
CPT/HCPCS: 76536

== ENCOUNTER 2025-06-15 13:22 | Outpatient (CLI) | payer OTHER, SELFPAY ==
--- OUTSIDE RECORDS SUMMARY | 2025-03-17 09:30 | XMS_ITS ---
Author Organization [facility] [place] Address [facility] [address] Care Team Providers Care Pharmacy Retail Support Specialist Name Role Phone Yudy Georges Primary Care Provider Malika Abreu Unavailable [phone] REASON FOR VISIT 1 month f/u Social History Sex Assigned At : Social History Observation Description Sex Assigned At Female Encounters Encounter Location Date Provider Diagnosis [facility] [id number] [address] 03/17/2025 Malika Slaughter Plan Of Treatment No Information Progress Notes * MAGDALENA GONZALEZDOB:1985 (40 yo F)Acc No.[id number]:03/17/2025 Patient: MAGDALENA NAVARRETE Provider: Deanne Slaughter :1985 A ge:39 Y S ex:Female Date:03/17/2025 Address:[address] [place], [place] [id number] Pcp:Yudy JOSUE Subjective: * Chief Complaints: * 1 month f/u * Electronic signature of Ranjit Slaughter on 06/15/2025 at 02:02 PM HOUSE SUPERVISOR Sign off status: Pending * Provider: Deanne Slaughter Date: 0 03/17/2025 Generated for Printi ng/Faxing/eTransmitting on: 1 08/15/2024 02:02 PM HOUSE SUPERVISOR
--- NOTE | ~2025-06-15 | MM_ITS ---
EXAMINATION: MM screening cailin BI w karli HISTORY: Screening TECHNIQUE: Craniocaudal and mediolateral oblique 3-D tomosynthesis images were obtained and synthetic 2-D images were generated. CAD analysis was submitted and interpreted. COMPARISON: No prior mammogram is available for comparison at this institution. BREAST PARENCHYMAL COMPOSITION: Not dense: There are scattered areas of fibroglandular density. FINDINGS: There is no evidence of suspicious mass, calcification, or architectural distortion to suggest malignancy in either breast. There has been no suspicious interval change. IMPRESSION: 1. No mammographic evidence of malignancy. 2. Recommend routine screening mammography in one year. BI-RADS Category 1: Negative Reviewed, dictated and finalized at location B. 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
--- OUTSIDE RECORDS SUMMARY | 2025-06-15 14:02 | XMS_ITS | Patient Health Record ---
Author Organization [facility] As [place] Address [address] [place] [address] Care Team Providers Care [employer] Faculty Member Name Role Phone Yudy Georges Primary Care Provider Malika Abreu Unavailable [phone] Allergies Allergen (clinical drug ingredient) Drug/Non Drug [...] Component Value Reference Range Notes UDT Reviewed date:01/20/2025 06:49:35 PM Interpretation: Performing Lab: Notes/Report: Amphetamine (AMP) p 0 - 1000 ng/ml Buprenorphine (BUP) n 0 - 10 ng/ml Oxazepam (BZO) n 0 - 300 ng/ml Cocaine (CAMDEN) n 0 - 300 ng/ml Methamphetamine (mAMP) n 0 - 300 ng/ml Methylenedioxymethamphetamine (MDMA) n 0 - 500 ng/ml Morphine (MOP) n 0 - 25 ng/ml Methadone (MTD) n 0 - 300 ng/ml Oxycodone (OXY) n 0 - 300 ng/ml THC n 0 - 50 ng/ml x n 0 - 1000 ng/ml x n 0 - 1000 ng/ml x n 0 - 300 ng/ml x n 0 - 300 ng/ml x n 0 - 300 ng/ml UDT Reviewed date:12/21/2024 01:11:01 PM Interpretation: Performing Lab: Notes/Report: Amphetamine (AMP) P 0 - 1000 ng/ml Buprenorphine (BUP) N 0 - 10 ng/ml Oxazepam (BZO) N 0 - 300 ng/ml Cocaine (CAMDEN) N 0 - 300 ng/ml Methamphetamine (mAMP) N 0 - 300 ng/ml Methylenedioxymethamphetamine (MDMA) N 0 - 500 ng/ml Morphine (MOP) N 0 - 25 ng/ml Methadone (MTD) N 0 - 300 ng/ml Oxycodone (OXY) N 0 - 300 ng/ml THC N 0 - 50 ng/ml x N 0 - 1000 ng/ml x N 0 - 1000 ng/ml x N 0 - 300 ng/ml x N 0 - 300 ng/ml x N 0 - 300 ng/ml UDT Reviewed date:11/23/2024 08:30:00 PM Interpretation: Performing Lab: Notes/Report: Amphetamine (AMP) P 0 - 1000 ng/ml Buprenorphine (BUP) N 0 - 10 ng/ml Oxazepam (BZO) N 0 - 300 ng/ml Cocaine (CAMDEN) N 0 - 300 ng/ml Methamphetamine (mAMP) N 0 - 300 ng/ml Methylenedioxymethamphetamine (MDMA) N 0 - 500 ng/ml Morphine (MOP) N 0 - 25 ng/ml Methadone (MTD) N 0 - 300 ng/ml Oxycodone (OXY) N 0 - 300 ng/ml THC N 0 - 50 ng/ml x N 0 - 1000 ng/ml x N 0 - 1000 ng/ml x N 0 - 300 ng/ml x N 0 - 300 ng/ml x N 0 - 300 ng/ml UDT Reviewed date:02/20/2025 06:10:53 PM Interpretation: Performing Lab: Notes/Report: Amphetamine (AMP) p 0 - 1000 ng/ml Buprenorphine (BUP) n 0 - 10 ng/ml Oxazepam (BZO) n 0 - 300 ng/ml Cocaine (CAMDEN) n 0 - 300 ng/ml Methamphetamine (mAMP) n 0 - 300 ng/ml Methylenedioxymethamphetamine (MDMA) n 0 - 500 ng/ml Morphine (MOP) n 0 - 25 ng/ml Methadone (MTD) n 0 - 300 ng/ml Oxycodone (OXY) n 0 - 300 ng/ml THC n 0 - 50 ng/ml x n 0 - 1000 ng/ml x n 0 - 1000 ng/ml x n 0 - 300 ng/ml x n 0 - 300 ng/ml x n 0 - 300 ng/ml Reason For Referral No Information Medications Medication SIG (Take, Route, Frequency, Duration) Notes Start Date End Date Status Synthroid 112 MCG Tablet 1 tablet in the morning on an empty stomach Orally Once a day Active Cyanocobalamin 1000 MCG/ML Solution Injection; Duration: 90 Days Active Ergocalciferol 1.25 MG (17744 UT) Capsule Oral 12/08/2023 Active Lisdexamfetamine Dimesylate 50 MG Capsule 1 capsule in the morning Orally Once a day; Duration: 30 days 02/28/2025 Active ProAir HFA 108 (90 Base) MCG/ACT Aerosol Solution Inhalation 12/08/2023 Act mickey Spironolactone 50 MG Tablet Oral; Duration: 90 Days Active busPIRone HCl 10 MG Tablet 1 tablet Orally three times a day; Duration: 30 days Active Liothyronine Sodium 5 MCG Tablet Oral; Duration: 90 Days Active Fetzima 40 MG Capsule Extended Release 24 Hour 1 capsule Orally Once a day; Duration: 30 days PA approved, coverage until 01/23/26 01/30/2025 Active Zepbound 5 MG/0.5ML Solution Auto-injector Subcutaneous; Duration: 28 Days Active Cetirizine HCl 10 MG Tablet TAKE 1 TABLET BY MOUTH IN THE MORNING Oral; Duration: 90 Days Active Immunizations Vaccine Route Administration Date Status [...] History Observation Description Sex Assigned At Female Social History Miscellaneous: Social Info Question Answer Notes Advance Care Planning Are you your own decision-maker Yes Do you have Power of General Purchasing Agent for Health or [facility]? No Safety issues: Are there any firearms in the house? Ye s Social History Social Info Question Answer Notes Household: Marital Status: Number of Adults in household: 2 Number of Children in Household: 0 Level of Education: Finished High School Household: Social Info Question Answer Notes Household Marital status: Drug/Alcohol: Social Info Question Answer Notes Drugs Have you used drugs other than those for medical reasons in the past 12 months? No AUDIT-C (Standard) Did you have a drink containing alcohol in the past year? No Tobacco Use: Social Info Question Answer Notes Tobacco Control (Standard) Tobacco use: Former smoker Additional Details Category Social Info Options Details Miscellaneous: Occupation: [employer] Migrated Social History Migrated Social History Alcohol Intake: Occasional 12/16/2021,Tobacco Years: Former smoker 12/16/2021,Smoking Status: 10 09/18/2023 Drug/Alcohol: Do you smoke marijuana? No Do you drink alcohol? Rarely Problems Problem Type SNOMED Code ICD Code Onset Dates Problem Status W/U Status Risk Notes Problem Mild recurrent major depression (19922874) Major depressive disorder, recurrent, mild (F33.0) 12/08/19 24 Active confirmed Problem Moderate recurrent major depression (31746649) Major depressive disorder, recurrent, moderate (F33.1) Active confirmed Problem Generalized anxiety disorder (16902685) Generalized anxiety disorder (F41.1) 12/08/19 24 Active confirmed Problem Attention deficit hyperactivity disorder, combined type (90370754) Attention-deficit hyperactivity disorder, combined type (F90.2) 12/08/19 24 Active confirmed Problem Insomnia (099869936) Insomnia, unspecified (G47.00) Active confirmed Problem Insomnia disorder related to another mental disorder (25409630) Insomnia related to another mental disorder (F51.05) Active confirmed Vital Signs Heart Rate 101 /min 02/17/2025 Height-cm 157.48 cm 02/17/2025 Blood pressure diastolic 85 mm Hg 02/17/2025 Weight-kg 117.03 kg 02/17/2025 Height 62.00 in 02/17/2025 Blood pressure systolic 123 mm Hg 02/17/2025 Weight 258 lbs 02/17/2025 BMI 47.18 kg/m2 02/17/2025 Encounters Encounter Location Date Provider Diagnosis [facility] [address] [facility] [address] [place] [address] 08/02/2024 Malika Hagopian Major depressive disorder, recurrent, mild F33.0 ; Attention-deficit hyperactivity disorder, combined type F90.2 ; Generalized anxiety disorder F41.1 and Insomnia related to another mental disorder F51.05 [place] [address] [facility] [address] [facility] [address] [place] [address] 08/30/2024 Malika Hagopian Major depressive disorder, recurrent, mild F33.0 ; Attention-deficit hyperactivity disorder, combined type F90.2 ; Generalized anxiety disorder F41.1 and Insomnia related to another mental disorder F51.05 [place] [address] [facility] [address] [place] [address] 09/27/2024 Malika Hagopian Major depressive disorder, recurrent, mild F33.0 ; Attention-deficit hyperactivity disorder, combined type F90.2 ; Generalized anxiety disorder F41.1 and Insomnia related to another mental disorder F51.[address] [address] 10/24/2024 Malika Hagopian Major depressive disorder, recurrent, mild F33.0 ; Attention-deficit hyperactivity disorder, combined type F90.2 ; Generalized anxiety disorder F41.1 ; Insomnia related to another mental disorder F51.05 and Encounter for screening for depression Z13.[address] [address] 11/21/2024 Malikahaider Hurtadoopian Generalized anxiety disorder F41.1 ; Major depressive disorder, recurrent, mild F33.0 ; Attention-deficit hyperactivity disorder, combined type F90.2 ; Encounter for screening for depression Z13.31 and Encounter for screening for cardiovascular disorders Z13.[address] [facility] [address] [place] [address] 12/19/2024 Malika Hagopian Major depressive disorder, recurrent, mild F33.0 ; Attention-deficit hyperactivity disorder, combined type F90.2 ; Generalized anxiety disorder F41.1 and Encounter for screening for depression Z13.[address] [facility] [address] [place] [address] 01/20/2025 Malikahaider Hurtadoopian Major depressive disorder, recurrent, moderate F33.1 ; Generalized anxiety disorder F41.1 ; Attention-deficit hyperactivity disorder, combined type F90.2 ; Insomnia related to another mental disorder F51.05 ; Encounter for screening for depression Z13.31 and Encounter for screening for cardiovascular disorders Z13.6 [facility], [facility] [address] [place] [address] 02/17/2025 Malika Slaughter Major depressive disorder, recurrent, moderate F33.1 ; Generalized anxiety disorder F41.1 ; Attention-deficit hyperactivity disorder, combined type F90.2 and Insomnia related to another mental disorder F51.05 [facility], [facility] [address] [place] [address] 10/25/2024 Malika Slaughter [facility], [facility] [address] [place] [address] 01/20/2025 Malika Slaughter [facility], [facility] [address] [place] [address] 03/16/2025 Malika Slaughter [facility], [facility] [address] [place] [address] 03/16/2025 Malika Slaughter [facility], [facility] [address] [place] [address] 07/08/2024 Malika Slaughter [facility], [facility] [address] [place] [address] 07/28/2024 Malika Slaughter [facility], [facility] [address] [place] [address] 08/22/2024 Malika Slaughter [facility], [facility] [address] [place] [address] 08/31/2024 Malika Slaughter Attention-deficit hyperactivity disorder, combined type F90.2 [facility], [facility] [address] [place] [address] 09/02/2024 Malika Slaughter [facility], [facility] [address] [place] [address] 09/02/2024 Malika Slaughter Major depressive disorder, recurrent, mild F33.0 [facility], [facility] [address] [place] [address] 09/06/2024 Malika Slaughter [facility], [facility] [address] [place] [address] 09/07/2024 Malika Slaughter Major depressive disorder, recurrent, mild F33.0 [facility], [facility] [address] [place] [address] 09/12/2024 Malika Slaughter Attention-deficit hyperactivity disorder, combined type F90.2 [facility], [facility] [address] [place] [address] 09/13/2024 Malika Slaughter [facility], [facility] [address] [place] [address] 10/25/2024 Malika Slaughter [facility], [facility] [address] [place] [address] 10/25/2024 [facility], [facility] [address] [place] [address] 11/03/2024 [facility], [facility] [address] [place] [address] 01/05/2025 Malika Slaughter [facility], [facility] [address] [place] [address] 01/23/2025 Malika [facility], [facility] [address] [place] [address] 01/23/2025 Malika Slaughter Major depressive disorder, recurrent, moderate F33.1 [facility], [facility] [address] [place] [address] 01/23/2025 Malika [facility], [facility] [address] [place] [address] 01/23/2025 Malika Slaughter [facility], [facility] [address] [place] [address] 01/27/2025 Malika Slaughter [facility], [facility] [address] [place] [address] 01/30/2025 Malika Slaughter Major depressive disorder, recurrent, mild F33.0 [facility], [facility] [address] [place] [address] 01/30/2025 Malika Slaughter [facility], [facility] [address] [place] [address] 02/27/2025 Malika Slaughter Attention-deficit hyperactivity disorder, combined type F90.2 and Major depressive disorder, recurrent, moderate F33.1 [facility] [address] [place] [address] 03/06/2025 Malikahaider [facility]adoarturo [facility] [address] [place] [address] 03/10/2025 Malika Slaughter Generalized anxiety disorder F41.1 [place] [address] [place] [address] 03/28/2025 Malikahaider [facility]adoarturo [facility] [address] [place] [address] 03/28/2025 Malika Sukhjinder Assessments Encounter Date Diagnosis (ICD Code) Assessment Notes Treatment Notes Treatment Clinical Notes Section Notes 08/02/2024 Major depressive disorder, recurrent, mild (ICD-10 [...] - Consider alternative treatments in future - antipsychotics - vraylar on green list for genesight - [...] and address any concerns or questions 08/31/2024 Attention-defici t hyperactivity disorder, combined type (ICD-10 - F90.2) 09/02/2024 Major depressive disorder, recurrent, mild (ICD-10 - F33.0) 09/07/2024 Major depressive disorder, recurrent, mild (ICD-10 - F33.0) 09/12/2024 Attention-defici t hyperactivity disorder, combined type (ICD-10 - F90.2) 09/27/2024 Major depressive disorder, recurrent, mild (ICD-10 - F33.0) Migraine headaches - Migraines, vomiting, believed to be caused by Qelbree - CT scan and MRI unremarkable - Experienced another migraine on Thursday after discontinuing Qelbree Plan: - Continue monitoring migraine frequency and severity Depression - Transitioned from Pristiq to vilazodone (Viibryd), currently at 20 mg - Reports feeling better and mood improvement, though still experiencing irritability - Hard to get a good gauge of response with recent illness and migraines - Lamotrigine has been beneficial for mood swings Plan: - Continue vilazodone (Viibryd) at 20 mg daily - Discussed options of increasing vilazodone dose next visit if warranted or adding adjunct such as Vraylar if needed for further mood stabilization in future - Continue lamotrigine at 200 mg daily - Have discussed TMS and Spravato, she is not opposed but wants to hold off Anxiety - Taking buspirone for anxiety, third does as needed Plan: - Continue buspirone for anxiety management - Reassess anxiety levels and medication effectiveness at the next visit Sleep - Reports good sleep quality Plan: - Practice good sleep hygiene - Continue monitoring sleep quality and address any concerns at the next visit Follow-up in 4 weeks to reassess progress, medication effectiveness, and potential side effects 10/24/2024 Major depressive disorder, recurrent, mild (ICD-10 - F33.0) Migraine headaches - Migraines, vomiting, believed to be caused by Qelb[place] - CT scan and MRI unremarkable - Experienced another migraine on Thursday after discontinuing Q[place] Plan: - Continue monitoring migraine frequency and severity Depression - Transitioned from Pristiq to vilazodone (Viibryd), currently at 20 mg - Reports feeling better and mood improvement, though still experiencing irritability - Hard to get a good gauge of response with recent illness and migraines - Lamotrigine has been beneficial for mood swings Plan: - Continue vilazodone (Viibryd) at 20 mg daily - Discussed options of increasing vilazodone dose next visit if warranted or adding adjunct such as Vraylar if needed for further mood stabilization in future - Continue lamotrigine at 200 mg daily - Have discussed TMS and Spravato, she is not opposed but wants to hold off Anxiety - Taking buspirone for anxiety, third does as needed Plan: - Continue buspirone for anxiety management - Reassess anxiety levels and medication effectiveness at the next visit Sleep - Reports good sleep quality Plan: - Practice good sleep hygiene - Continue monitoring sleep quality and address any concerns at the next visit Follow-up in 4 weeks to reassess progress, medication effectiveness, and potential side effects 10/24/2024 Attention-defici t hyperactivity disorder, combined type (ICD-10 - F90.2) Migraine headaches - Migraines, vomiting, believed to be caused by Q[place] - CT scan and MRI unremarkable - Experienced another migraine on Thursday after discontinuing [place] Plan: - Continue monitoring migraine frequency and severity Depression - Transitioned from Pristiq to vilazodone (Viibryd), currently at 20 mg - Reports feeling better and mood improvement, though still experiencing irritability - Hard to get a good gauge of response with recent illness and migraines - Lamotrigine has been beneficial for mood swings Plan: - Continue vilazodone (Viibryd) at 20 mg daily - Discussed options of increasing vilazodone dose next visit if warranted or adding adjunct such as Vraylar if needed for further mood stabilization in future - Continue lamotrigine at 200 mg daily - Have discussed TMS and Spravato, she is not opposed but wants to hold off Anxiety - Taking buspirone for anxiety, third does as needed Plan: - Continue buspirone for anxiety management - Reassess anxiety levels and medication effectiveness at the next visit Sleep - Reports good sleep quality Plan: - Practice good sleep hygiene - Continue monitoring sleep quality and address any concerns at the next visit Follow-up in 4 weeks to reassess progress, medication effectiveness, and potential side effects 11/21/2024 Major depressive disorder, recurrent, mild (ICD-10 - F33.0) 11/21/2024 Generalized anxiety disorder (ICD-10 - F41.1) 12/19/2024 Major depressive disorder, recurrent, mild (ICD-10 - F33.0) 12/19/2024 Attention-defici t hyperactivity disorder, combined type (ICD-10 - F90.2) 01/20/2025 Major depressive disorder, recurrent, moderate (ICD-10 - F33.1) Electronic Prior Authorization was requested for Fetzima 40 MG Capsule Extended Release 24 Hour. Provider can order medication once approval received. 01/20/2025 Generalized anxiety disorder (ICD-10 - F41.1) 01/23/2025 Major depressive disorder, recurrent, moderate (ICD-10 - F33.1) 01/30/2025 Major depressive disorder, recurrent, mild (ICD-10 - F33.0) 02/17/2025 Major depressive disorder, recurrent, moderate (ICD-10 - F33.1) 02/27/2025 Attention-defici t hyperactivity disorder, combined type (ICD-10 - F90.2) 03/10/2025 Generalized anxiety disorder (ICD-10 - F41.1) 02/27/2025 Major depressive disorder, recurrent, moderate (ICD-10 - F33.1) 02/17/2025 Generalized anxiety disorder (ICD-10 - F41.1) 01/20/2025 Attention-defici t hyperactivity disorder, combined type (ICD-10 - F90.2) 12/19/2024 Generalized anxiety disorder (ICD-10 - F41.1) 11/21/2024 Attention-defici t hyperactivity disorder, combined type (ICD-10 - F90.2) 10/24/2024 Generalized anxiety disorder (ICD-10 - F41.1) Migraine headaches - Migraines, vomiting, believed to be caused by Qelbree - CT scan and MRI unremarkable - Experienced another migraine on Thursday after discontinuing Q[place]bree Plan: - Continue monitoring migraine frequency and severity Depression - Transitioned from Pristiq to vilazodone (Viibryd), currently at 20 mg - Reports feeling better and mood improvement, though still experiencing irritability - Hard to get a good gauge of response with recent illness and migraines - Lamotrigine has been beneficial for mood swings Plan: - Continue vilazodone (Viibryd) at 20 mg daily - Discussed options of increasing vilazodone dose next visit if warranted or adding adjunct such as Vraylar if needed for further mood stabilization in future - Continue lamotrigine at 200 mg daily - Have discussed TMS and Spravato, she is not opposed but wants to hold off Anxiety - Taking buspirone for anxiety, third does as needed Plan: - Continue buspirone for anxiety management - Reassess anxiety levels and medication effectiveness at the next visit Sleep - Reports good sleep quality Plan: - Practice good sleep hygiene - Continue monitoring sleep quality and address any concerns at the next visit Follow-up in 4 weeks to reassess progress, medication effectiveness, and potential side effects 09/27/2024 Attention-defici t hyperactivity disorder, combined type (ICD-10 - F90.2) Migraine headaches - Migraines, vomiting, believed to be caused by Qelbree - CT scan and MRI unremarkable - Experienced another migraine on Thursday after discontinuing Qelbree Plan: - Continue monitoring migraine frequency and severity Depression - Transitioned from Pristiq to vilazodone (Viibryd), currently at 20 mg - Reports feeling better and mood improvement, though still experiencing irritability - Hard to get a good gauge of response with recent illness and migraines - Lamotrigine has been beneficial for mood swings Plan: - Continue vilazodone (Viibryd) at 20 mg daily - Discussed options of increasing vilazodone dose next visit if warranted or adding adjunct such as Vraylar if needed for further mood stabilization in future - Continue lamotrigine at 200 mg daily - Have discussed TMS and Spravato, she is not opposed but wants to hold off Anxiety - Taking buspirone for anxiety, third does as needed Plan: - Continue buspirone for anxiety management - Reassess anxiety levels and medication effectiveness at the next visit Sleep - Reports good sleep quality Plan: - Practice good sleep hygiene - Continue monitoring sleep quality and address any concerns at the next visit Follow-up in 4 weeks to reassess progress, medication effectiveness, and potential side effects 08/30/2024 Attention-defici t hyperactivity disorder, combined type (ICD-10 - F90.2) [...] - Consider alternative treatments in future - antipsychotics - vraylar on green list for genesight - [...] and address any concerns or questions 08/02/2024 Attention-defici t hyperactivity disorder, combined type (ICD-10 - F90.2) [...] and address any concerns or questions 08/02/2024 Generalized anxiety disorder (ICD-10 - F41.1) [...] Initiate Viibryd 20 mg daily (green on genesDFine testing) - Reassess mood and response to Viibryd in 4 weeks - Consider alternative treatments in future - antipsychotics - vraylar on green list for [employer] - TMS, but need MRI and migraines [...] plan and address any concerns or questions 09/27/2024 Generalized anxiety disorder (ICD-10 - F41.1) Migraine headaches - Migraines, vomiting, believed to be caused by Qelbree - CT scan and MRI unremarkable - Experienced another migraine on Thursday after discontinuing Qelbree Plan: - Continue monitoring migraine frequency and severity Depression - Transitioned from Pristiq to vilazodone (Viibryd), currently at 20 mg - Reports feeling better and mood improvement, though still experiencing irritability - Hard to get a good gauge of response with recent illness and migraines - Lamotrigine has been beneficial for mood swings Plan: - Continue vilazodone (Viibryd) at 20 mg daily - Discussed options of increasing vilazodone dose next visit if warranted or adding adjunct such as Vraylar if needed for further mood stabilization in future - Continue lamotrigine at 200 mg daily - Have discussed TMS and Felicia, she is not opposed but wants to hold off Anxiety - Taking buspirone for anxiety, third does as needed Plan: - Continue buspirone for anxiety management - Reassess anxiety levels and medication effectiveness at the next visit Sleep - Reports good sleep quality Plan: - Practice good sleep hygiene - Continue monitoring sleep quality and address any concerns at the next visit Follow-up in 4 weeks to reassess progress, medication effectiveness, and potential side effects 10/24/2024 Insomnia related to another mental disorder (ICD-10 - F51.05) Migraine headaches - Migraines, vomiting, believed to be caused by Qelbree - CT scan and MRI unremarkable - Experienced another migraine on Thursday after discontinuing Qelbree Plan: - Continue monitoring migraine frequency and severity Depression - Transitioned from Pristiq to vilazodone (Viibryd), currently at 20 mg - Reports feeling better and mood improvement, though still experiencing irritability - Hard to get a good gauge of response with recent illness and migraines - Lamotrigine has been beneficial for mood swings Plan: - Continue vilazodone (Viibryd) at 20 mg daily - Discussed options of increasing vilazodone dose next visit if warranted or adding adjunct such as Vraylar if needed for further mood stabilization in future - Continue lamotrigine at 200 mg daily - Have discussed TMS and Spravato, she is not opposed but wants to hold off Anxiety - Taking buspirone for anxiety, third does as needed Plan: - Continue buspirone for anxiety management - Reassess anxiety levels and medication effectiveness at the next visit Sleep - Reports good sleep quality Plan: - Practice good sleep hygiene - Continue monitoring sleep quality and address any concerns at the next visit Follow-up in 4 weeks to reassess progress, medication effectiveness, and potential side effects 12/19/2024 Encounter for screening for depression (ICD-10 - Z13.31) 02/17/2025 Attention-defici t hyperactivity disorder, combined type (ICD-10 - F90.2) 01/20/2025 Insomnia related to another mental disorder (ICD-10 - F51.05) 11/21/2024 Encounter for screening for depression (ICD-10 - Z13.31) 01/20/2025 Encounter for screening for depression (ICD-10 - Z13.31) 02/17/2025 Insomnia related to another mental disorder (ICD-10 - F51.05) 11/21/2024 Encounter for screening for cardiovascular disorders (ICD-10 - Z13.6) 10/24/2024 Encounter for screening for depression (ICD-10 - Z13.31) Migraine headaches - Migraines, vomiting, believed to be caused by Qelbree - CT scan and MRI unremarkable - Experienced another migraine on Thursday after discontinuing Qelbree Plan: - Continue monitoring migraine frequency and severity Depression - Transitioned from Pristiq to vilazodone (Viibryd), currently at 20 mg - Reports feeling better and mood improvement, though still experiencing irritability - Hard to get a good gauge of response with recent illness and migraines - Lamotrigine has been beneficial for mood swings Plan: - Continue vilazodone (Viibryd) at 20 mg daily - Discussed options of increasing vilazodone dose next visit if warranted or adding adjunct such as Vraylar if needed for further mood stabilization in future - Continue lamotrigine at 200 mg daily - Have discussed TMS and Spravato, she is not opposed but wants to hold off Anxiety - Taking buspirone for anxiety, third does as needed Plan: - Continue buspirone for anxiety management - Reassess anxiety levels and medication effectiveness at the next visit Sleep - Reports good sleep quality Plan: - Practice good sleep hygiene - Continue monitoring sleep quality and address any concerns at the next visit Follow-up in 4 weeks to reassess progress, medication effectiveness, and potential side effects 09/27/2024 Insomnia related to another mental disorder (ICD-10 - F51.05) Migraine headaches - Migraines, vomiting, believed to be caused by Qelbree - CT scan and MRI unremarkable - Experienced another migraine on Thursday after discontinuing Qelbree Plan: - Continue monitoring migraine frequency and severity Depression - Transitioned from Pristiq to vilazodone (Viibryd), currently at 20 mg - Reports feeling better and mood improvement, though still experiencing irritability - Hard to get a good gauge of response with recent illness and migraines - Lamotrigine has been beneficial for mood swings Plan: - Continue vilazodone (Viibryd) at 20 mg daily - Discussed options of increasing vilazodone dose next visit if warranted or adding adjunct such as Vraylar if needed for further mood stabilization in future - Continue lamotrigine at 200 mg daily - Have discussed TMS and Spravato, she is not opposed but wants to hold off Anxiety - Taking buspirone for anxiety, third does as needed Plan: - Continue buspirone for anxiety management - Reassess anxiety levels and medication effectiveness at the next visit Sleep - Reports good sleep quality Plan: - Practice good sleep hygiene - Continue monitoring sleep quality and address any concerns at the next visit Follow-up in 4 weeks to reassess progress, medication effectiveness, and potential side effects 08/30/2024 Insomnia related to another mental disorder (ICD-10 - F51.05) Depression - Reports ongoing concerns with depression, worse lately, but had not been truly upfront prior - sexual side effects with pristiq - Plan: - Continue lamotrigine 200 mg once a day - Taper off Pristiq - Initiate Viibryd 20 mg daily (green on [employer] testing) - Reassess mood and response to Viibryd in 4 weeks - Consider alternative treatments in future - antipsychotics - vraylar on green list for genesight - [...] plan and address any concerns or questions 01/20/2025 Encounter for screening for cardiovascular disorders (ICD-10 - Z13.6) 08/02/2024 Other does not need refills at [...] plan and address any concerns or questions 10/24/2024 Jeannine Rucker is a 39-year-old female presenting with stable anxiety levels, improved mood, and concerns about inability to focus and maintain productivity at work due to ADHD symptoms. Attention Deficit Hyperactivity Disorder (ADHD) Assessment: Patient reports inability to focus and maintain productivity at work as her primary concern. She recently discontinued Qelbree, which had eliminated her migraines. Gene site testing showed moderate interaction with potentially reduced efficacy for methylphenidate medications. Patient previously tried Adderall but reports it wasn't beneficial. Given the patient's history and current symptoms, a trial of a different stimulant medication is warranted to address her ADHD symptoms. Plan: - Initiate dextroamphetamine (generic for Vyvanse) 30 mg - Monitor for improvement in ADHD symptoms and eating habits - Monitor for any side effects or adverse effects - Follow up in 4 weeks, sooner if concerns arise Anxiety and Depression Assessment: Patient reports stable anxiety levels and improved mood since initiating vilazodone 20 mg. She denies current anxiety or panic attacks. Current medication regimen includes lamotrigine 200 mg daily and buspirone 10 mg TID for anxiety management. Plan: - Continue vilazodone 20 mg - Continue lamotrigine 200 mg daily - Continue buspirone 10 mg TID - Monitor for any side effects or adverse effects Migraine headaches - Migraines, vomiting, believed to be caused by Qelbree - CT scan and MRI unremarkable - Experienced another migraine on Thursday after discontinuing Qelbree Plan: - Continue monitoring migraine frequency and severity Depression - Transitioned from Pristiq to vilazodone (Viibryd), currently at 20 mg - Reports feeling better and mood improvement, though still experiencing irritability - Hard to get a good gauge of response with recent illness and migraines - Lamotrigine has been beneficial for mood swings Plan: - Continue vilazodone (Viibryd) at 20 mg daily - Discussed options of increasing vilazodone dose next visit if warranted or adding adjunct such as Vraylar if needed for further mood stabilization in future - Continue lamotrigine at 200 mg daily - Have discussed TMS and Spravato, she is not opposed but wants to hold off Anxiety - Taking buspirone for anxiety, third does as needed Plan: - Continue buspirone for anxiety management - Reassess anxiety levels and medication effectiveness at the next visit Sleep - Reports good sleep quality Plan: - Practice good sleep hygiene - Continue monitoring sleep quality and address any concerns at the next visit Follow-up in 4 weeks to reassess progress, medication effectiveness, and potential side effects 11/21/2024 Other Magdalena Albert, female patient with history of ADHD, anxiety, and depression, presenting for medication management and reporting some improvement in symptoms. Attention Deficit Hyperactivity Disorder (ADHD)Assessment: Patient reports positive response to Vyvanse, noting significant improvement in the first week of treatment. She describes the medication as amazing and states she absolutely love[s] it. Patient has experienced a reduction in afternoon crashes and no longer requires melatonin for sleep. No negative or adverse effects reported. Previous trials of clonidine (sedating), atomoxetine (ineffective), Adderall (palpitations), and Concerta (ineffective) were unsuccessful. Patient's right eye reportedly drifts, especially when reading or focusing, which may be related to her ADHD symptoms or past eye surgeries.Plan:- Increase Vyvanse to 40 mg PO daily- Follow up in 4 weeks AnxietyAssessment: Patient reports anxiety is good at present. Currently managed with BuSpar (buspirone).Plan:- Refill BuSpar (buspirone) for 90-day supply through [facility] DepressionAssessme nt: Patient reports having a really bad week last week, suggesting potential exacerbation of depressive symptoms. Currently managed with vilazodone, but dose adjustment may be necessary.Plan:- Increase vilazodone dose to 40 mg daily- Advised patient to take vilazodone with food to mitigate potential stomach upset 12/19/2024 Other Magdalena Albert, female, presents with ongoing anxiety and ADHD symptoms, reporting recent work stress and a family . AnxietyAssessment: Patient reports increased stress over the past couple of weeks. Current anxiety medication (likely buspirone) is being taken about 3 times daily and is described as helpful in smoothing out symptoms. Patient notices physical manifestations of anxiety, such as leg bouncing, which prompt medication use. Labs show slight improvement in cholesterol levels. Recent appointments with PCP and meteorological aide were reported as satisfactory.Plan: - Continue anxiety medication (likely buspirone) 10mg, 3 times daily- Monitor efficacy of current dosage- Consider potential increase up to 20mg if needed (max 50mg)- Encourage continued use of medication when physical anxiety symptoms are noticed Attention Deficit Hyperactivity Disorder (ADHD)Assessment: Patient is currently on Vyvanse for ADHD management. Previous trials of Qelbree, Guanfacine, and Strattera were ineffective. Methylphenidate class medications showed reduced efficacy. Recent increase in Vyvanse dosage, with patient unable to discern significant changes in symptoms. No reported increase in restlessness or anxiety from medication adjustment.Plan:- Increase Vyvanse to 50mg daily- Continue booster medication 10mg, 3 times daily- Take Vyvanse with food to mitigate potential gastrointestinal side effects- Monitor for changes in irritability or being on edge with dosage increase- Reassess efficacy and side effects at next appointment Mood StabilityAssessmen t: Patient is currently on Lamotrigine for mood stability. No current depression reported. There is a concern about potential irritability, which may be related to ADHD medication adjustments or underlying mood issues.Plan:- Continue Lamotrigine 200mg at bedtime- Monitor for any changes in mood or irritability, especially in relation to Vyvanse dosage increase- Consider potential medication adjustments (ADHD medications or mood stabilizers) if irritability persists 01/20/2025 Other Magdalena Albert, adult female with history of depression since age 13-14, presents with worsening depressive symptoms and emotional lability despite current medication regimen. Major Depressive Disorder Assessment: Patient reports persistent depressive symptoms despite current treatment with Viibryd 40mg daily and lamotrigine 200mg daily. She describes a cyclical pattern of depression, with periods of low mood lasting 1-2 weeks, followed by emotional numbness. Symptoms include increased crying without clear triggers, anhedonia, and decreased enjoyment in previously pleasurable activities. Patient denies suicidal ideation, irritability, or significant anxiety. Sleep and appetite are reportedly normal. Work functioning appears maintained. Previous trial of Wellbutrin or Lexapro in her 20s resulted in increased suicidal ideation without plan. Current presentation suggests inadequate response to current medication regimen, necessitating adjustment in pharmacological management. Plan: - Discontinue Viibryd - Initiate Fetzima - Start at 20mg PO daily, increase to 40mg PO daily - Take in the morning - Informed patient of potential side effects: nausea, vomiting, constipation, initial activation - Advised of rare risk of seizures and potential for urinary hesitancy - Discussed expected timeframe for therapeutic effect (2-4 weeks) - Taper and discontinue lamotrigine: - Reduce from 200mg to 100mg - Then reduce to 50mg - Then discontinue - Follow up in 4 weeks Anxiety Assessment: Patient reports current use of buspirone 3 times daily for anxiety management, which she finds helpful. No significant anxiety symptoms reported during this visit. Plan: - Continue current anxiety management with buspirone 02/17/2025 Jeannine Albert, female, presents with irritability, mood swings, and anxiety symptoms after discontinuing lamotrigine, with a history of childhood trauma. Mood Instability and Irritability Assessment: Patient reports increased irritability and mood swings since discontinuing lamotrigine approximately 9 months ago. She describes being on edge and experiencing intense anger reactions to minor stressors, leading to verbal outbursts and potentially aggressive behavior. These symptoms are consistent with her pre-lamotrigine presentation, which initially prompted her to seek psychiatric care. The patient denies current suicidal or homicidal ideation but expresses concern about her ability to control her anger. There is a noted improvement in emotional responsiveness since discontinuing lamotrigine, with the patient feeling less numb and less flat. Plan: - Continue Fetzima, recently increased to 40 mg - Anticipate potential increase in dosage at next follow-up - Monitor for side effects, particularly activation symptoms - Discontinue buspirone 10 mg TID due to lack of perceived benefit - Consider restarting lamotrigine if mood instability persists - Encourage resumption of psychotherapy to address underlying trauma and emotion regulation - Follow-up appointment in 3-4 weeks Anxiety with Panic Symptoms Assessment: Patient reports experiencing panic-like symptoms, which she describes as rage panic rather than fear-based panic. These episodes appear to be triggered by frustration and loss of control over her environment. The patient denies generalized anxiety symptoms on a daily basis, attributing this to her current medication regimen. Plan: - Continue current medication regimen, focusing on Fetzima for potential anxiolytic effects - Encourage development of coping strategies for managing acute anxiety and anger episodes - Reassess anxiety symptoms at follow-up appointment History of Childhood Trauma Assessment: Patient confirms a history of childhood trauma, which is likely contributing to her current mood instability, self-esteem issues, and difficulties with emotion regulation. The patient has shown resistance to fully engaging in trauma-focused therapy, having recently withdrawn after beginning to disclose traumatic experiences. Plan: - Strongly encourage re-engagement in psychotherapy to address trauma history - Provide psychoeducation on the connection between childhood trauma and current symptoms - Monitor for trauma-related symptoms and their impact on overall functioning Plan Of Treatment No Information Insurance Providers Payer Name Payer Address Payer Phone Subscriber Number Group Number Insured Name Patient Relationship to Insured Coverage Start Date Coverage End Date [place] [address] [place] [address] [id number] MAGDALENA ALBERT Self - patient is the insured Medical (General) History Medical History History ICD Code Problems: Attention deficit hyperactivit y disorder, combined type Hypothyroidism Middle insomnia Obesity Past Psychiatric History: An xiety Disorder,Panic Disorder,PTSD,Major Depressive Episode undefined vitamin B12 deficiency vitamin D deficiency Surgical History Surgery Date(Month/Year) wisdom teeth eye surgery
--- OUTSIDE RECORDS SUMMARY | 2025-06-15 14:03 | XMS_ITS | Data Portability ---
Author Organization [facility] Address [address] [place] [address] Care Team Providers Care Payroll Secretary Name Role Phone BRUCE NOEL Primary Care Provider [phone] Assessment Encounter Date Assessment Date Assessment LastModified by Organization Details LastModified Time 11/21/2022 11/21/2022 Annual gynecological exam performed. Patient will come back in a year unless there are new symptoms. [email or web address] Not available 11/21/2022 11:50:45 11/24/2023 11/24/2023 Annual gynecological exam performed. Patient will come back in a year unless there are new symptoms. [email or web address] Not available 11/24/2023 16:22:15 05/10/2025 05/10/2025 Annual gynecological exam performed. Patient will come back in a year unless there are new symptoms. [email or web address] Not available 05/10/2025 16:03:18 Plan of Treatment Reminders Order Date Submit Date Provider Last Modified By Organization Details Last Modified Time Details Appointments None recorded. Lab pap, IG + HR HPV - HPV regardless but if HPV is positive need subtyping 16,18/[address]/trich 2024 025 [facility] (Lab), [address], [place], [address], 15:48:22 urinalysis, dipstick 2023 024 [email or web address], [address], [address], [place], [address], 16:15:10 Referral None recorded. Procedures None recorded. Surgeries None recorded. Imaging MAMMO, screening, digital, bilateral 2024 [facility], [address], [facility] [address], [place], [address], 04:03:24 Medication Orders Cipro 500 mg tablet 2023 [facility] [place], [address], 15:54:19 Patient TargetsNo targets recorded. Patient InstructionsNo instructions [...] t Case: [id number] Autho misbah g Provi kale: Nasim Cooley Colle cted: 11/21 1421 [employer] Order ing Locat ion: [place] Patho logy Recei emma: 11/24 0749 First Scree n: Na Mcmillan ay, CT Patho logis t: Oneil Tovar rd, MD Speci men: Scree mary jo Pap - Image d, Cervi x STATE MENT OF ADEQU ACY: Satis facto ry for evalu ation Trans forma tion zone compo nent prese nt FINAL DIAGN OSIS: Epith elial Cell Abnor malit y, Squam ous Cell: Atypi lyle Squam ous Cells of Undet ermin ed Signi fican ce (ASC- US). Elect kyung mendez mary [...] patie nt consi derat ions. Not Available [facility] (Lab) [address], [place], [address], 11/27/2022 11:28:08 11/22/19 23 11/21/2022 TRICH OMONA S VAGIN HANG (RRNA ) trichomonas vaginalis ribosomal RNA (rrna) Negati ve negati ve Not Available [facility] (Lab) [address], [place], [address], 11/27/2022 11:28:09 11/22/19 23 11/21/2022 CT/GC (DIONNE) , THINP REP VIAL chlamydia trachomatis, PCR Negati ve negati ve Not Available [facility] (Lab) [address], [place], [address], 11/27/2022 11:28:10 11/22/19 23 11/21/2022 CT/GC (DIONNE) , THINP REP VIAL neisseria gonorrhoeae, PCR Negati ve negati ve Not Available [facility] (Lab) [address], [place], [address], 11/27/2022 11:28:10 11/25/19 24 11/25/2023 IMAGE GUIDE D PAP AND HPV REGAR DLESS image guided Pap, HPV regardless of Pap result SEE RESULT S BELOW CASE REPOR T: Cytol ogy Gynec ologi lyle Repor t Case: [id number] Autho misbah chip Provi kale: Nasim Cooley Colle cted: 11/24 0852 [employer] Order ing Locat ion: [place] Patho logy Recei emma: 11/25 0940 First Scree n: Noelis ni, Renee ed, CT Patho logis t: Silas Ayala [...] consi stent with Ashley da spp. Elect kyung brody d by Silas Ayala MD on 024 [...] as clini cain brothers nted. Not Available [facility] (Lab) [address] [facility], [place], [address], 12/02/2023 13:25:07 11/25/19 24 11/25/2023 TRICH OMONA S VAGIN HANG (RRNA ) trichomonas vaginalis ribosomal RNA (rrna) Negati ve negati ve Not Available [facility] (Lab) [address] [facility], [place], [address], 12/02/2023 13:25:08 11/25/19 24 11/25/2023 CT/GC (DIONNE) , THINP REP VIAL chlamydia trachomatis, PCR Negati ve negati ve Not Available [facility] (Lab) [address] [facility], [place], [address], 12/02/2023 13:25:08 11/25/19 24 11/25/2023 CT/GC (DIONNE) , THINP REP VIAL neisseria gonorrhoeae, PCR Negati ve negati ve Not Available [facility] (Lab) [address] [facility], [place], [address], 12/02/2023 13:25:08 06/24/20 24 06/24/2024 CT/GC AND TRICH OMONA S VAGIN HANG (RRNA ), URINE chlamydia trachomatis, PCR Negati ve negati ve Not Available [facility] (Lab) [address] [facility], [place], [address], 06/25/2024 13:11:18 06/24/20 24 06/24/2024 CT/GC AND TRICH OMONA S VAGIN HAGN (RRNA ), URINE neisseria gonorrhoeae, PCR Negati ve negati ve Not Available [facility] (Lab) [address] [facility], [place], [address], 06/25/2024 13:11:18 06/24/20 24 06/24/2024 CT/GC AND TRICH OMONA S VAGIN HANG (RRNA ), URINE trichomonas vaginalis ribosomal RNA (rrna) Negati ve negati ve Not Available [facility] (Lab) [address] [facility], [place], [address], 06/25/2024 13:11:18 06/24/20 24 06/24/2024 CULTU RE: URINE result report SEE RESULT S BELOW Test: Cultu re: Urine Speci men Sourc e: Urine - Clean Catch Speci men Type: Urine Speci men Date: 06/24 1537 Resul t Date: 06/25 2250 Resul t Statu s: Final resul t Abnor mal: No Resul ting Lab: [facility] [address] [facility] [address] Tel: CULTU RE ----- ----- ----- --- No growt h in 1 day (dete ction level of 10,00 0 colon ies / ml.) Not Available [facility] (Lab) [address], [place], [address], 06/25/2024 23:54:25 06/24/20 24 06/24/2024 urina lysis , dipst ick Leukocytes + Not Available [facility] jho[address], [place], [address], 06/24/2024 16:14:49 06/24/20 24 06/24/2024 urina lysis , dipst ick Protein + Not Available [facility] [address], [place], [address], 06/24/2024 16:14:49 06/24/20 24 06/24/2024 urina lysis , dipst ick pH 6 Not Available [facility] [address], [place], [address], 06/24/2024 16:14:49 06/24/20 24 06/24/2024 urina lysis , dipst ick Blood +++ Not Available [facility] [address], [place], [address], 06/24/2024 16:14:49 06/24/20 24 06/24/2024 urina lysis , dipst ick Specific [place] 1.030 Not Available [facility] [address], [place], [address], 06/24/2024 16:14:49 06/24/20 24 06/24/2024 urina lysis , dipst ick Ketone + Not Available [facility] [address], [place], [address], 06/24/2024 16:14:49 05/10/20 25 05/10/2025 IMAGE GUIDE D PAP AND HPV REGAR DLESS image guided Pap, HPV regardless of Pap result SEE RESULT S BELOW abnormal CASE REPOR T: Cytol ogy Gynec ologi lyle Repor t Case: [id number] Autho misbah saunders Provi kale: Ileana Weiss, REGLA Palmer cted: 05/10 1550 Order ing Locat ion: [place] Patho logy Recei emma: 05/11 1019 First Scree n: Vidal salas, Viral mcgrath, CT Patho logis t: Gunner Bishop MD Speci men: Rhea camargo Pap - Image d, Cervi x STATE MENT OF ADEQU ACY: Satis facto ry for evalu ation Trans forma tion zone compo nent prese nt ----- ----- ----- ----- ----- ----- ----- ----- ----- ----- ----- ----- ----- ----- ----- ----- ----- ---- FINAL DIAGN OSIS: Epith elial Cell Abnor malit y, Squam ous Cell: 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 Shift in carlie sugge stive of bacte rial vagin osis. Elect kyung abraham by Gunner Bishop MD on 05/16 at 1443 CDT ----- ----- ----- ----- ----- ----- ----- ----- ----- ----- ----- ----- ----- ----- ----- ----- ----- ---- HPV RESUL TS: HPV mRNA E6/E7 : Posit mickey - HPV mRNA Detec maria elena HPV GENOT YPE 16 (DIONNE) : Not Detec maria elena HPV GENOT YPE 18/45 (DIONNE) : Not Detec maria elena NOTE: This high risk HPV mRNA assay detec ts fourt een high- risk HPV types (16, 18, 31, 33, 35, 39, 45, 51, 52, 56, 58, 59, 66, 68) witho ut diffe renti ation . This assay can diffe renti ate HPV 16 from HPV 18/45 , but does not diffe renti ate betwe en HPV 18 and HPV 45. A negat mickey HPV 16, 18/45 genot ype assay resul t does not exclu de the possi bilit y of cytol ogic abnor malit ies or of futur e or under lying RAISSA 1, RAISSA 3 or cance r. COMME NT: This speci men was revie wed by a Cytot echno logis t and/o r Patho logis t (as indic ated in this repor t) after evalu ation using the Thinp rep Imagi ng Syste m. CLINI LYLE INFOR MATIO N: Menst rual Statu s: LMP (if appli cable ): 2024 Clini lyle Histo ry/Pr eviou s Pap: Type of Neopl dragan (if appli cable ): Signi fican t Clini lyle Findi ngs: Other Histo ry: Hormo anisha (if appli cable ): SUGGE STED FOLLO W-UP: Follo w up as warra nted, based on curre nt guide lines and indiv idual patie nt consi derat ions. Not Available [facility] (Lab) [address] , [place], [address], 05/16/2025 15:48:22 05/10/20 25 05/10/2025 CT/GC AND TRICH OMONA S VAGIN HANG (RRNA ), THINP REP VIAL CT/GC and trichomonas vaginalis (rrna), thinprep SEE RESULT S BELOW negati ve CHLAM YDIA TRACH OMATI S, PCR: Negat mickey NEISS ERIA GONOR RHOEA E, PCR: Negat mickey TRICH OMONA S VAGIN HANG RIBOS OMAL RNA (RRNA ): Negat mickey Not Available [facility] (Lab) [address], [place], [address], 05/16/2025 15:48:22 Result Notes None recorded. Problems Name Problem SNOMED Code Status Onset Date Resolution Date Notes Provider Name and Address Organization Details Recorded Time Mixed anxiety and depressive disorder 119445443 Active 2023 Stephany unger, [facility] 4 16:26:23 Problem Notes None recorded. Procedures Surgical History Date Name Laterality Status Provider Name and Address Organization Details Recorded Time [address] MD [address], [place], [address], [facility] 5 15:49:34 2024 Colposcopy completed [facility] 5 12:05:30 2024 Colposcopy completed [facility] 5 12:06:13 2024 Date of Last Pap Smear completed [facility] 5 12:04:50 2013 loop electrosurgical excision procedure of cervix completed [facility] 3 12:08:49 2013 Colposcopy completed Stephany Sullivan [facility] 4 16:29:19 2005 Ndl oculoelectromyography 1+ completed Genoveva Macedo [facility] 3 12:09:48 2003 extraction of wisdom tooth completed Stephany Sullivan [facility] 4 16:29:32 Imaging Results None recorded. Procedure Notes None recorded. Medical Equipment None Reported. Allergies Allergen ID Allergen Name Allergen Category Reaction Reaction Severity Criticality Documentation Date Start Date Code Code System Note Provider Name and Address Organization Details Recorded Time latex environme nt,medica tion Not available Not available Not available 11/21/2022 72101 91 RxNorm Genovevamerly unger [facility] 3 12:01:03 24797 Mobic medicatio n Not available Not available Not available 11/21/2022 67905 9 RxNorm Genovevamerly unger [facility] 3 12:01:09 97525 viloxazin e hydrochlo ride medicatio n headache severe Not available 05/10/20252023 29699 3 RxNorm Zahraa Narayan [facility], [facility] 5 15:54:00 Medications Name Sig Start Date Stop Date Status Note LastModified by Organization Details LastModified Time vitamin d3 (tom) 50mcg cap TAKE 2 CAPSULES BY MOUTH IN THE MORNING 05/10 completed Not Available Not Available Not Available metformin 500 mg tablet Take 1 tablet twice a day by oral route. 11/23 completed Not Available Not Available Not Available lamotrigine 200 mg tablet TAKE 1 TABLET BY MOUTH AT BEDTIME 05/10 completed Not Available Not Available Not Available cetirizine 10 mg tablet TAKE 1 TABLET BY MOUTH IN THE MORNING active Not Available Not Available No t Available Iron (ferrous sulfate) 325 mg (65 mg iron) tablet Take 1 tablet every day by [...] tablets twice a day by oral route. 05/10 completed Not Available Not Available Not Available Synthroid 100 mcg tablet 05/10 completed Not Available Not Available Not Available propranolol ER 60 mg capsule,24 hr,extended release TAKE 1 CAPSULE BY MOUTH ONCE DAILY active Not Available Not Available No t Available sertraline 100 mg tablet 05/29 completed Not Available Not Available Not Available metronidazo le 250 mg tablet TAKE 1 TABLET BY MOUTH EVERY 8 HOURS 04/26 completed Not Available Not Available Not Available metronidazo le 500 mg tablet TAKE 1 TABLET BY MOUTH TWICE DAILY FOR 7 DAYS 05/29 completed Not Available Not Available Not Available phentermine 37.5 mg tablet TAKE 1 TABLET BY MOUTH EVERY DAY 06/24 completed Not Available Not Available Not Available ciprofloxac in 500 mg tablet TAKE 1 TABLET BY MOUTH EVERY 12 HOURS 05/10 completed Not Available Not Available Not Available sulfamethox azole 800 mg-trimetho prim 160 mg tablet 05/10 completed Not Available Not Available Not Available liothyronin e 5 mcg tablet 05/10 completed Not Available Not Available Not Available doxycycline monohydrate 100 mg tablet TAKE 1 TABLET BY MOUTH EVERY 12 HOURS 04/26 completed Not Available Not Available Not Available triamcinolo ne acetonide 0.1 % topical cream APPLY CREAM TOPICALLY TO THE AFFECTED AREAS OF NOSE TWICE DAILY 05/10 completed Not Available Not Available Not Available levothyroxi ne 75 mcg tablet TAKE 1 TABLET BY MOUTH ONCE DAILY IN THE MORNING ON AN EMPTY STOMACH active Not Available Not Available No t Available propranolol 10 mg tablet TAKE 1 TABLET BY MOUTH TWICE DAILY NEEDED FOR ANXIETY 05/10 completed Not Available Not Available Not Available alprazolam 0.25 mg tablet TAKE 1 TABLET BY MOUTH TWICE DAILY NEEDED 05/10 completed Not Available Not Available Not Available dextroamphe tamine-amph etamine ER 20 mg 24hr capsule,ext end release TAKE 1 CAPSULE BY MOUTH IN THE MORNING FOR 30 DAYS 06/24 completed Not Available Not Available Not Available dexamethaso ne 1 mg tablet TAKE 1 TABLET BY MOUTH AT 10 PM THE NIGHT BEFORE 8 AM CORTISOL active Not Available Not Available No t Available cyanocobala min (vit B-12) 1,000 mcg/mL injection solution INJECT 1 ML SUBCUTANE OUSLY ONCE A WEEK IN THE MORNING 05/10 completed Not Available Not Available Not Available oseltamivir 75 mg capsule TAKE 1 CAPSULE BY MOUTH TWICE DAILY FOR 5 DAYS 11/23 completed Not Available Not Available Not Available buspirone 10 mg tablet 05/10 completed Not Available Not Available Not Available metronidazo le 0.75 % topical cream APPLY A THIN LAYER TO THE NOSE DAILY NEEDED 05/10 completed Not Available Not Available Not Available lidocaine HCl 2 % mucosal solution SWISH, GARGLE, AND SPIT 5ML FOUR TIMES DAILY NEEDED FOR PAIN 06/24 completed Not Available Not Available Not Available triamterene 37.5 mg-hydrochl orothiazide 25 mg tablet TAKE 1 TABLET BY MOUTH ONCE DAILY 05/10 completed Not Available Not Available Not Available dextroamphe tamine-amph etamine ER 10 mg 24hr capsule,ext end release TAKE 1 CAPSULE BY MOUTH IN THE MORNING 06/24 completed Not Available Not Available Not Available Lamictal 150 mg tablet Take 1 tablet twice a day by oral route. 11/23 completed Not Available Not Available Not Available Vitamin D2 1,250 mcg (50,000 unit) capsule Take by oral route. active Not Available Not Available No t Available cefdinir 300 mg capsule 05/10 completed Not Available Not Available Not Available [...] Not Available Not Available Not Available lamotrigine 100 mg tablet TAKE 1 TABLET BY MOUTH ONCE DAILY 05/10 completed Not Available Not Available Not Available methylpheni date ER 36 mg tablet,exte nded release 24 hr TAKE 1 TABLET BY MOUTH ONCE DAILY IN THE MORNING 06/24 completed Not Available Not Available Not Available spironolact one 50 mg tablet TAKE 2 TABLETS BY MOUTH IN THE MORNING 05/10 completed Not Available Not Available Not Available Abilify 10 mg tablet Take 1 tablet every day by oral route. active Not Available Not Available No t Available atomoxetine 25 mg capsule TAKE 1 CAPSULE BY MOUTH EVERY MORNING X 1 WEEK, THEN INCREASE TO 40MG 11/23 completed Not Available Not Available Not Available atomoxetine 40 mg capsule TAKE 1 CAPSULE BY MOUTH EVERY DAY IN THE MORNING 11/22 /2024 completed Not Available Not Available Not Available aripiprazol e 5 mg tablet TAKE 1/2 (ONE-HALF ) TABLET BY MOUTH ONCE DAILY FOR 4 DAYS, AND THEN TAKE 1 TAB ONCE DAILY THEREAFTE R 05/10 completed Not Available Not Available Not Available vitamin C43-ajrku acid injection solution Take by injection route. 05/10 completed Not Available Not Available Not Available bupropion HCl XL 300 mg 24 hr tablet, extended release TAKE 1 TABLET BY MOUTH ONCE DAILY IN THE MORNING active Not Available Not Available No t Available bupropion HCl XL 150 mg 24 hr tablet, extended release TAKE 1 TABLET BY MOUTH ONCE DAILY IN THE MORNING 05/10 completed Not Available Not Available Not Available nitrofurant oin monohydrate /macrocryst als 100 mg capsule 05/10 completed Not Available Not Available Not Available Janine-D 24 Hour 180 mg-240 mg tablet,exte nded release TAKE 1 TABLET BY MOUTH ONCE DAILY 06/24 completed Not Available Not Available Not Available Vitamin D 11/23 completed Not Available Not Available Not Available Synthroid 05/10 completed Not Available Not Available Not Available atomoxetine 80 mg capsule 06/24 completed Not Available Not Available Not Available atomoxetine 100 mg capsule 06/24 completed Not Available Not Available Not Available Vyvanse 50 mg capsule Take 1 capsule every day by oral route. active Not Available Not Available No t Available lisdexamfet amine 30 mg capsule TAKE 1 CAPSULE BY MOUTH IN THE MORNING ONCE DAILY 05/10 completed Not Available Not Available Not Available lisdexamfet amine 40 mg capsule TAKE 1 CAPSULE BY MOUTH ONCE DAILY IN THE MORNING 05/10 completed Not Available Not Available Not Available desvenlafax ine succinate ER 50 mg tablet,exte nded release 24 hr TAKE 1 TABLET BY MOUTH ONCE DAILY 06/24 completed Not Available Not Available Not Available desvenlafax ine succinate ER 100 mg tablet,exte nded release 24 hr TAKE 1 TABLET BY MOUTH ONCE DAILY FOR 7 DAYS THEN 1/2 (ONE-HALF ) ONCE DAILY FOR 14 DAYS (TAPERING OFF 21 DAYS) 05/10 completed Not Available Not Available Not Available vilazodone 40 mg tablet TAKE 1 TABLET BY MOUTH ONCE DAILY WITH FOOD 05/10 completed Not Available Not Available Not Available vilazodone 20 mg tablet TAKE 1 TABLET BY MOUTH ONCE DAILY active Not Available Not Available No t Available BD Insulin Syringe Ultra-Fine 1 mL 31 gauge x 5/16 INJECT B12 UNDER THE SKIN ONCE WEEKLY X 90 DAYS 11/23 completed Not Available Not Available Not Available Fetzima 40 mg capsule,ext ended release TAKE 1 CAPSULE BY MOUTH ONCE DAILY 05/10 completed Not Available Not Available Not Available Fetzima 20 mg capsule,ext ended release TAKE 1 CAPSULE BY MOUTH ONCE DAILY FOR 7 DAYS 05/10 completed Not Available Not Available Not Available Qelbree 100 mg capsule,ext ended release TAKE 1 BY MOUTH ONCE DAILY FOR 7 DAYS TAPER DOWN TO STOP 05/10 completed Not Available Not Available Not Available Qelbree 200 mg capsule,ext ended release TAKE 1 CAPSULE BY MOUTH ONCE DAILY 05/10 completed Not Available Not Available Not Available Wegovy 1 mg/0.5 mL subcutaneou s [...] injector INJECT 7.5MG SUB-Q ONCE A WEEK 05/10 completed Not Available Not Available Not Available Vitals Date Recorded Systolic And Diastolic Provider Name and Address Organization Details Last Updated DateTime 11/21/2022 130/74 mm[Hg] Terri Granado, [facility]- [address], [place], [address], [place] - [facility] 11/21/2022 12:29:18 Date Recorded Body height Body mass index (BMI) Body weight Provider Name and Address Organization Details Last Updated DateTime 11/21/2022 157.48 cm 42.3 kg/m2 322580.84 g Genoveva Macedo [facility] 11/21/2022 12:00:43 Date Recorded Body height Body mass index (BMI) Body weight Systolic And Diastolic Provider Name and Address Organization Details Last Updated DateTime 11/24/2023 157.48 cm 40.1 kg/m2 13043.73 g 122/78 mm[Hg] Stephany Sullivan [facility] 11/24/2023 16:22:36 Date Recorded Body height Body mass index (BMI) Body weight Systolic And Diastolic Provider Name and Address Organization Details Last Updated DateTime 05/29/2025 157.48 cm 48.1 kg/m2 085486.79 g 128/92 mm[Hg] Ailyn [facility] 05/29/2025 12:03:19 Date Recorded Body height Body mass index (BMI) Body weight Systolic And Diastolic Provider Name and Address Organization Details Last Updated DateTime 06/24/2024 157.48 cm 46.3 kg/m2 671948.87 g 134/80 mm[Hg] Ailyn [facility] 06/24/2024 15:58:24 Social History Question Answer Notes LastModified by Organizat ion Details LastModified Time Tobacco Smoking Status Never Smoker Genoveva Macedo [facility], [facility] 11/21/2022 12:08:12 Do You Have An Advance Directive? No [email or web address] Information n ot available 05/10/2025 How Many Years Have You Consumed Alcohol? 20 [email or web address] Information not available 11/24/2023 Are You Blind Or Do You Have Difficulty Seeing? No Information n ot available 11/24/2023 What Is Your Level Of Caffeine Consumption? Moderate [email or web address] Information not available 11/24/2023 How Much Tobacco Do You Chew? None [email or web address] Information not available 11/24/2023 In The 14 Days Before Symptom Onset, Have You Had Close Contact With A Laboratory-confirm ed COVID-19 While That Case Was Ill? No Information n ot available 11/21/2022 In The 14 Days Before Symptom Onset, Have You Had Close Contact With A Person Who Is Under Investigation For COVID-19 While That Person Was Ill? No Information not available 11/21/2022 Have You Been To An Area Known To Be High Risk For COVID-19? No Information not available 11/21/2022 Are You Deaf Or Do You Have Serious Difficulty Hearing? No [email or web address] Information not available 11/24/2023 What Type Of Diet Are You Following? REGULAR [email or web address] Information n ot available 11/24/2023 Which Illicit Or Recreational Drugs Have You Used? Marijuana Nightly Information not available 11/21/2022 What Is The Highest Grade Or Level Of School You Have Completed Or The Highest Degree You Have Received? [id number] [email or web address] Information not available 11/24/2023 Are There Any Guns Present In Your Home? Yes [email or web address] Information not available 11/24/2023 Have You Ever Been Counseled For Unhealthy Alcohol Use? No Information not available 11/21/2022 Do You Use Protection During Sex? No [email or web address] Information not available 11/24/2023 Do You Use Your Seat Belt Or Car Seat Routinely? Yes Information not available 11/24/2023 Do You Have Smoke And Carbon Monoxide Detectors In Your Home? Yes [email or web address] Information not available 11/24/2023 At What Age Did You Start Smoking Tobacco? 16 [email or web address] Information not available 11/24/2023 How Much Tobacco Do You Smoke? No [email or web address] Information not available 11/24/2023 Do You Use Sunscreen Routinely? Yes [email or web address] Information not available 11/24/2023 Has Tobacco Cessation Counseling Been Provided? No Information not available 11/21/2022 How Many Years Have You Smoked Tobacco? 0 [email or web address] Information not available 11/24/2023 Have You Used IV Drugs? No Information not available 11/21/2022 Do You Have Difficulty Walking Or Climbing Stairs? No [email or web address] Information not available 11/24/2023 Sex: Female Functional Status Question Answer Note LastModified by Organizat ion Details LastModified Time Do you use any illicit or recreational drugs? No [email or web address] Information not available 11/24/2023 Do you or have you ever used any other forms of tobacco or nicotine? No Information not available 11/21/2022 What is your level of alcohol consumption? Occasional Information not available 11/21/2022 Are you able to walk independently without assistance or assistive devices? YESWOREST [email or web address] Information not available 05/10/2025 Are you able to care for yourself independently? 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 No [email or web address] Information not available 11/24/2023 What is your exercise level? Moderate [email or web address] Information not available 11/24/2023 Mental Status Question Answer Note LastModified by Organization D etails LastModified Time Do you feel stressed (tense, restless, nervous, or anxious, or unable to sleep at night)? [id number] [email or web address] Information not available 11/24/2023 Family History Relationship Description Onset Age of this Age Resolved Age Notes LastModified by Organization Details LastModified Time Mother Hypercholest erolemia [email or web address] Not available 11/02 12:05:31 Mother Hypertensive disorder [email or web address] Not available 11/02 12:05:44 Mother Psychotic disorder [email or web address] Not available 2024 11:24:33 Mother Disorder of thyroid gland [email or web address] Not available 11/02 12:07:25 Sister Hypercholest erolemia [email or web address] Not available 11/02 12:05:53 Sister Infertile [email or web address] Not availabl e 05/29/2025 11:24:33 Sister Psychotic disorder [email or web address] Not available 2024 11:24:33 Sister Disorder of thyroid gland [email or web address] Not available 11/02 12:07:25 Maternal Grandmother Psychotic disorder [email or web address] Not available 2024 11:24:33 Maternal Grandmother Disorder of thyroid gland [email or web address] Not available 11/02 12:07:25 Maternal Uncle Psychotic disorder [email or web address] Not available 2024 11:24:33 Medical History Condition Response Allergies (Food, seasonal, environmental ) Y Other N Blood Transfusion N Drug/Latex Allergies/Reactions Y Breast Cancer N Lung Disease N Dermatologic Disorders N Defects or Inherited Disease N Breast Problem N Gestational Diabetes N Hematologic disorders N Anesthesia Complications N History of STI Y Deep Vein Thrombosis N Polycystic ovary syndrome Y Anxiety Disorder Y Autoimmune disease N Arthritis N Polyps N Infertility Y Acid Reflux (GERD) N History of abnormal pap Y Cancer N Stroke N Varicosities N Neurologic/Epilepsy Y Endometriosis N High Cholesterol N Fibromyalgia N Headaches Y Kidney Disease N Heart Problems N Thyroid Problems Y Kidney or Bladder Problems N GI Problems N Eating Disorder N Anemia N Art (IVF or FET) N Psychiatric Illness Y Diabetes N Ovarian Cancer N Pulmonary (TB, Asthma) N Hepatitis/Liver Disease N Eczema N Urinary Tract Infection N Abuse/Domestic Violence N Asthma Y Trauma/Violence N Depression/ depression Y Heart Disease N Pre-Eclampsia N Hypertension N Osteoporosis N Thrombophilias N Gynecological History Statement/Question Response Date of Last Mammogram Flow Moderate Date of LMP 05/01/2025 N Was last menstrual period normal Y STIs/STDs Yes Date of Last Colonoscopy None Desired Control Method None Abnormal Pap Yes On BCP's at Conception? N Colposcopy 05/29/2025 HPV Vaccine N Duration of Flow (days) 7 Current Control Method None Are cycles usually normal Y Frequency of Cycle (Q days) 28 Most Recent Bone Density Sexually Active? Y Menses Monthly Y Date of DEXA bone scan Age of first menstrual cycle 13 Date of Last Pap Smear 05/10/2025 Sexual Problems? N LMP Definite N Obstetrics History GPAL:G 0 P 0 0 0 0 Type Value Living 0 Total 0 Past Encounters Encounter ID Performer Location Encounter Start Date Encounter Closed Date Diagnosis/Indication Diagnosis SNOMED-CT Code Diagnosis ICD10 Code Diagnosis IMO Codes Diagnosis Note [id number] Terri Granado [facility] [address] [address] 11/21/2022 11:48:41 11/21/2022 12:31:44 Gynecologic examination 94103496 Z01.419 Take Calcium with Vitamin D 1200mg [...] Screen na Dexa Screen na Routine Labs [facility] na [id number] Terri Granado , [facility] [address],[facility] [[email or web address] [place] [address] 11/24/2023 16:03:15 11/24/2023 16:47:14 Gynecologic examination 00651536 Z01.419 Z11.51 Take Calcium with Vitamin D [...] c Screen discussedC olon Screen naDexa Screen naRout[place] [facility] na [id number] Yoav [address] MD [facility] [address],[place] [address] 06/24/2024 15:41:34 06/24/2024 16:38:34 Urinary symptoms 607448499 R39.9 . 39-year-ol d female with suprapubic [...] the instructio ns and the precaution s. [id number] NICO Santos [facility] [address] [address] 05/10/2025 15:51:55 05/11/2025 10:21:30 Gynecologic examination 22122932 Z01.972 [id number] EB - declinedPa p - done todaySTI screen - gc/ct/tric h testing added to papRoutine labs - PCPMammogr am order given, schedule for after 40th bdayRTC in 1 yr or sooner if needed It is strongly advised to have an annual flu shot and up can obtain at most pharmacies . If you have not had a TDap shot in the last 10 years you should obtain one as well. Discussed with patient & provided with informatio n regarding the HPV vaccine if applicable . Encourage safe sexual practices, to use condoms and limit partners if not already in a monogamous relationsh ip. Do monthly self breast exams. BRCA testing is now available for patients with strong genetic history of female cancer. If interested contact the office. Engage in regular exercise. Avoid tobacco and illicit drugs. This lifestyle behavior pattern will lead to less health conditions and longer life span. If BMI greater than 25 dietary consult advised. Questions answered. Screening mammography 24 242241 Z12.31 [id number] Venereal d isease screening 757011534 Z11.[id number] MD [facility] [address] [address] 05/29/2025 11:23:50 05/29/2025 15:51:31 Cervical atypism 59697975 R87.610 [id number] Colposcopi c examinatio n was performed. She tolerated the procedure well. It was normal. Health Concerns Section Related Observation LastModified by Organization Detai ls LastModified Time None Recorded Concern Status LastModified by Organization Details LastModified Time None Recorded Advance Directives Directive N: Payers Insurance Date Sequence Insurance Name Policy Number Policy Patiño Covered Member ID Patiño Member ID Guarantor Name 05/28/2025 1 [place] [id number] Alka Bety [id number] Alka Stevens Bety 05/28/2025 1 [employer] [id number] Bert Villegasgan [id number] Alka Hilda Bety Notes Date Note Type Note Provider Name and Address Organization Details Recorded Time 3 text/html Annual GYNReported by PatientHistoryFor history, patient reportsno gynecologic complaints.Genitourinary symptomsFor menstrual cycle, patient reportsnormal menses. For urinary symptoms, patient reportsno hematuriaandno incontinence. For vulva, patient reportsno genital lesion. For vagina, patient reportsnormal vaginal discharge.Breast symptomsFor breast, patient reportsno breast pain,no breast lump, andno nipple discharge.ContraceptionFo r current contraception, patient reportsbirth control not practiced.Endocrine symptomsFor sexual complaints, patient reportsno sexual complaints,no pain during intercourse, andnormal libido. For menopausal symptoms, patient reportsno menopausal symptomsandnormal vaginal lubrication.Psychological symptomsFor psychological symptoms, patient reportsno depression,no anxiety, andno pmdd.Preventative measuresFor preventive measures, patient reportsencourage self breast examination,encourage regular exercise,encourage no tobacco use,encourage regular mammograms starting age 40, andhistory of abnormal pap smear/cervical dysplasia. Terri Granado, [facility] [address], [place], [address], [facility] 11/21/2022 12:30:55 4 text/html Annual GYNReported by PatientHistoryFor history, patient reportsno gynecologic complaints.Genitourinary symptomsFor menstrual cycle, patient reportsnormal menses. For urinary symptoms, patient reportsno hematuriaandno incontinence. For vulva, patient reportsno genital lesion. For vagina, patient reportsnormal vaginal discharge.Breast symptomsFor breast, patient reportsno breast pain,no breast lump, andno nipple discharge.ContraceptionFo r current contraception, patient reportsbirth control not practiced.Endocrine symptomsFor sexual complaints, patient reportsno sexual complaints,no pain during intercourse, andnormal libido. For menopausal symptoms, patient reportsno menopausal symptomsandnormal vaginal lubrication.Psychological symptomsFor psychological symptoms, patient reportsno depression,no anxiety, andno pmdd.Preventative measuresFor preventive measures, patient reportsencourage self breast examination,encourage regular exercise,encourage no tobacco use,encourage regular mammograms starting age 40,followed with yearly pap smears, andhistory of abnormal pap smear/cervical dysplasia. Terri Granado [facility] [address], [place], [address], [facility] 11/24/2023 16:36:26 4 text/html . 39-year-old female with suprapubic pain [...] precautions. Yoav Lane MD [address], [place], [address], [facility] 06/24/2024 16:38:05 5 text/html Annual GYNReported by PatientGenitourinary symptomsFor menstrual cycle, patient reportsnormal menses. For urinary symptoms, patient reportsno hematuriaandno incontinence. For vulva, patient reportsno genital lesion. For vagina, patient reportsnormal vaginal discharge.Breast symptomsFor breast, patient reportsno breast pain,no breast lump, andno nipple discharge.Endocrine symptomsFor sexual complaints, patient reportsno sexual complaints,no pain during intercourse, andnormal libido. For menopausal symptoms, patient reportsno menopausal symptomsandnormal vaginal lubrication.Psychological symptomsFor psychological symptoms, patient reportsno depression,no anxiety, andno pmdd.Preventative measuresFor preventive measures, patient reportsencourage self breast examination,encourage regular exercise,encourage no tobacco use, andencourage regular mammograms starting age 40.39yo [id number] pap 11/2023 : nilm, HPV (-)h/o LEEP 2013 NICO Santos [address], [place], [address], [facility] 05/11/2025 10:18:41 5 text/html This patient is a 39-year-old female who presents for colposcopic examination. The procedure was explained to the patient in detail. She understands the procedure. She understands the risks, benefits, and alternatives. She has completed the informed consent process and is ready to proceed. Yoav Lane MD [address], [place], [address], [facility] 05/29/2025 15:51:01 OBGyn Episode No OBEpisode recorded.
--- OUTSIDE RECORDS SUMMARY | 2025-06-15 14:03 | XMS_ITS | Clinical Summary ---
Author Organization [facility] Address [address] [place] [address] Care Team Providers Care Cloth Checker Name Role Phone Mateusz Tellez MD Primary Care Provider [phone] Source Comments [facility],non-owned Affiliates and Associated Physician Practices is amultiple site organization consisting of ambulatory clinics and hospital sitesin [place] and [place]. This disclosure is being madepursuant to the Care Everywhere program and may not contain all information available regarding this patient. Last updated 18.[facility] MyWants Allergies Active Allergy Reactions Criticality Noted Date Comments Penicillins GI Discomfort 03/05/2017 Medications * Be aware that medications may not be up to date on this document. Alwaysverify current medications with the patient. fluticasone propionate (FLONASE) 50 MCG/ACT nasal sprayIndications :Left acute suppurative otitis media [place] 2 Sprays into each nostril once daily 1 Bottle 05/28/2016 Active albuterol HFA (PROVENTIL;DIANNE MAC;PROAIR) 108 (90 BASE) MCG/ACT inhaler Inhale 2 puffs by mouth every 6 hours as needed Active Active Problems No known active problems Social History Tobacco Use Types Packs/Day Years Used Date Smoking Tobacco: Every Day Smokeless Tobacco: Never Tobacco Cessation:Ready to Q uit: No; Counseling Given: Yes Comments No Sex and Gender Information Value Date Recorded Sex Assigned at Not on file Legal Sex Female 6:43 AM CDT Gender Identity Female 03/02/2025 2:42 PM CDT Sexual Orientation Straight 03/02/2025 2: 42 PM CDT Last Filed Vital Signs Vital Sign Reading [...] 7:00 PM CDT Height 157.5 cm (5' 2) 02/22/2018 7:00 PM CDT Body Mass Index 40.24 02/22/2018 7:00 PM CDT Plan of Treatment Upcoming Encounters Date Type Department Care Team (Late st Contact Info) Description 07/12/2025 3:20 PM INSOLE TAPE STITCHER [facility] Office Visit [facility] [address] [place] [address] Luna Scanlon APNP-MANAGEMENT INSTRUCTOR [address] [place] [address] Health Maintenance Due Date Last Done Comments HIV SCREENING 2000 HEPATITIS C SCREENING 06/07/2003 DTAP/TDAP/TD VACCINES (1 - Tdap) 2004 HEPATITIS B VACCINE (1 of 3 - 19+ 3-dose series) 2004 PNEUMOCOCCAL VACCINE (1 of 2 - PCV) 2004 PAP SMEAR 2006 HPV VACCINE (1 - 3-dose SCDM series) 2012 DEPRESSION SCREENING 08/03/2024 COVID-19 VACCINE (1 - 2023-2 5 season) 2025 INFLUENZA VACCINE (#1) 2025 ZOSTER VACCINE (1 of 2) 2035 HIB VACCINE Aged Out No longer eligi ble based on patient's age to complete this topic MENINGOCOCCAL (Group B) VACC INE SHARED DECISION-MAKING Aged Out No longer eligibl e based on patient's age to complete this topic MENINGOCOCCAL GROUPS A/C/Y/W VACCINE Aged Out No longer eligible b ased on patient's age to complete this topic Insurance [employer] Care Teams Cloth Checker Relationship Specialty Start Date End Date Mateusz Tellez MD [address] [place] [id number] PCP - General Family Medicine 03/05/17
--- OUTSIDE RECORDS SUMMARY | 2025-06-15 14:03 | XMS_ITS | Continuity of Care Document ---
Author Organization [facility], [facility] Address [address] [place] [address] Care Team Providers Care Music Minister Name Role Phone BRUCE NOEL Primary Care Provider [phone] Assessment No assessment recorded. Plan of Treatment Reminders Order Date Submit Date Provider Last Modified By Organization Details Last Modified Time Details Appointments None record ed. Lab None record ed. Referral None record ed. Procedures None record ed. Surgeries None record ed. Imaging None record ed. Medication Orders None record ed. Patient TargetsNo targets recorded. Patient InstructionsNo instructions recorded. Reason for Referral None Reported. Results Created Date Observation Date Name Description Value Unit Range Abnormal Flag Note LastModifiedBy Organization Detail LastModifiedTime 05/10/2005/10/2025 IMAGE GUIDE D PAP AND HPV REGAR DLESS image guided Pap, HPV regardless of Pap result SEE RESULT S BELOW abnormal CASE REPOR T: Cytol ogy Gynec ologi lyle Repor t Case: [id number] Autho misbah saunders Provi kale: Ileana Weiss, REGLA Colle cted: 05/10 1550 Order ing Locat ion: [place] Patho logy Recei emma: 05/11 1019 First Scree n: Vidal salas, Viral am, [place] Patho logis t: Gunner Bishop MD Speci men: Scree mary jo Pap [...] patie nt consi derat ions. Not Available [facility] (Lab) [address], [place], [address], 05/16/2025 15:48:22 05/10/20 25 05/10/2025 CT/GC AND TRICH OMONA S VAGIN HANG (RRNA ), THINP REP VIAL CT/GC and trichomonas vaginalis (rrna), thinprep SEE RESULT S BELOW negati ve CHLAM YDIA TRACH OMATI S, PCR: Negat mickey NEISS ERIA GONOR RHOEA E, PCR: Negat mickey TRICH OMONA S VAGIN HANG RIBOS OMAL RNA (RRNA ): Negat mickey Not Available [facility] (Lab) [address], [place], [address], 05/16/2025 15:48:22 Result Notes None recorded. Problems Name Problem SNOMED Code Status Onset Date Resolution Date Notes Provider Name and Address Organization Details Recorded Time Mixed anxiety and depressive disorder 215441073 Active 2023 Stephany unger, [facility] 4 16:26:23 Problem Notes None recorded. Procedures Surgical History Date Name Laterality Status Provider Name and Address Organization Details Recorded Time [address] MD [address], [place], [address], [facility] 5 15:49:34 2024 Colposcopy completed Ailyn Kahn [facility] 5 12:05:30 2024 Colposcopy completed [facility] 5 12:06:13 2024 Date of Last Pap Smear completed Ailyn [facility] 5 12:04:50 2013 loop electrosurgical excision procedure of cervix completed Genoveva Boogiepradeep [facility] 3 12:08:49 2013 [facility] 16:29:19 2005 Ndl oculoelectromyography 1+ completed [facility] 3 12:09:48 2003 extraction of wisdom tooth completed [facility] 16:29:32 Imaging Results None recorded. Procedure Notes None recorded. Medical Equipment None Reported. Allergies Allergen ID Allergen Name Allergen Category Reaction Reaction Severity Criticality Documentation Date Start Date Code Code System Note Provider Name and Address Organization Details Recorded Time latex environme nt,medica tion Not available Not available Not available 11/21/2022 71515 91 RxNorm Genoveva unger [facility] 3 12:01:03 45461 Mobic medicatio n Not available Not available Not available 11/21/2022 82217 9 RxNorm Genoveva unger [facility] 3 12:01:09 47691 viloxazin e hydrochlo ride medicatio n headache severe Not available 05/10/20252023 10147 3 RxNorm Zahraa Helene cornel, [facility] 5 15:54:00 Medications Name Sig Start [...] Not Available Not Available Not Available vitamin Q75-sjhoe acid injection solution Take by injection route. [...] Available Not Available Vitals Date Recorded Body height Body mass index (BMI) Body weight Systolic And Diastolic Provider Name and Address Organization Details Last Updated DateTime 05/29/2025 157.48 cm 48.1 kg/m2 485794.79 g 128/92 mm[Hg] Ailyn Kahn [facility] 05/29/2025 12:03:19 Social History Question Answer Notes LastModified by Organizat ion Details LastModified Time Tobacco Smoking Status Never Smoker Genoveva unger, [facility] 11/21/2022 12:08:12 Do You Have An Advance Directive? No [email or web address] Information n ot available 05/10/2025 How Many Years Have You Consumed Alcohol? 20 [email or web address] Information not available 11/24/2023 Are You Blind Or Do You Have Difficulty Seeing? No [email or web address] Information n ot available 11/24/2023 What Is Your Level Of Caffeine Consumption? Moderate [email or web address] Information not available 11/24/2023 How Much Tobacco Do You Chew? None [email or web address] Information not available 11/24/2023 In The 14 [...] Do You Have Serious Difficulty Hearing? No [email or web address] Information not available 11/24/2023 What Type Of Diet Are You Following? REGULAR ulxoluxx57 Information n ot available 11/24/2023 Which Illicit Or Recreational Drugs Have You Used? Marijuana Nightly Information not available 11/21/2022 What Is The Highest Grade Or Level Of School You Have Completed Or The Highest Degree You Have Received? [id number] [email or web address] Information not available 11/24/2023 Are There Any Guns Present In Your Home? Yes [email or web address] Information not available 11/24/2023 Have You Ever Been Counseled For Unhealthy Alcohol Use? No Information not available 11/21/2022 Do You Use Protection During Sex? No [email or web address] Information not available 11/24/2023 Do You Use Your Seat Belt Or Car Seat Routinely? Yes [email or web address] Information not available 11/24/2023 Do You Have Smoke And Carbon Monoxide Detectors In Your Home? Yes [email or web address] Information not available 11/24/2023 At What Age Did You Start Smoking Tobacco? 16 sgnqolhs24 Information not available 11/24/2023 How Much Tobacco Do You Smoke? No [email or web address] Information not available 11/24/2023 Do You Use Sunscreen Routinely? Yes [email or web address] Information not available 11/24/2023 Has Tobacco Cessation Counseling Been Provided? No Information not available 11/21/2022 How Many Years Have You Smoked Tobacco? 0 [email or web address] Information not available 11/24/2023 Have You Used IV Drugs? No Information not available 11/21/2022 Do You Have Difficulty Walking Or Climbing Stairs? No [email or web address] Information not available 11/24/2023 Sex: Female Functional Status Question Answer Note LastModified by Organizat ion Details LastModified Time Do you use any illicit or recreational drugs? No [email or web address] Information not available 11/24/2023 Do you or have you ever used any other forms of tobacco or nicotine? No Information not available 11/21/2022 What is your level of alcohol consumption? Occasional Information not available 11/21/2022 Are you able to walk independently without assistance or assistive devices? YESWOREST unfvdal85 Information not available 05/10/2025 Are you able to care for yourself independently? 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 No [email or web address] Information not available 11/24/2023 What is your exercise level? Moderate nryugafs16 Information not available 11/24/2023 Mental Status Question Answer Note LastModified by Organization D etails LastModified Time Do you feel stressed (tense, restless, nervous, or anxious, or unable to sleep at night)? [id number] Information not available 11/24/2023 Family History Relationship Description Onset Age of this Age Resolved Age Notes LastModified by Organization Details LastModified Time Mother Hypercholest erolemia vschroedter Not available 11/02 12:05:31 Mother Hypertensive disorder vschroedter Not available 11/02 12:05:44 Mother Psychotic disorder [email or web address] Not available 2024 11:24:33 Mother Disorder of thyroid gland vschroedter Not available 11/02 12:07:25 Sister Hypercholest erolemia vschroedter Not available 11/02 12:05:53 Sister Infertile Not availabl e 05/29/2025 11:24:33 Sister Psychotic disorder Not available 2024 11:24:33 Sister Disorder of thyroid gland vschroedter Not available 11/02 12:07:25 Maternal Grandmother Psychotic disorder [email or web address] Not available 2024 11:24:33 Maternal Grandmother Disorder of thyroid gland vschroedter Not available 11/02 12:07:25 Maternal Uncle Psychotic disorder [email or web address] Not available 2024 11:24:33 Medical History Condition [...] ICD10 Code Diagnosis IMO Codes Diagnosis Note [id number] NICO Santos [place] [address] [address] 05/10/2025 15:51:55 05/11/2025 10:21:30 Gynecologic examination 20057692 Z01.909 0734636 WWEBC - declinedPa p - done todaySTI screen [...] consult advised. Questions answered. Screening mammography 24 408335 Z12.31 [id number] Venereal d isease screening 283309244 Z11.[id number] MD [place] [address] [address] 05/29/2025 11:23:50 05/29/2025 15:51:31 Cervical atypism 73052263 R87.610 [id number] Colposcopi c examinatio n was performed. She tolerated the procedure well. It was normal. Health Concerns Section Related Observation LastModified by Organization Detai ls LastModified Time None Recorded Concern Status LastModified by Organization Details LastModified Time None Recorded Payers Encounter Date Sequence Insurance Name Policy Number Policy Patiño Covered Member ID Patiño Member ID Guarantor Name 05/29/2025 1 [id number] Bert Bety [id number] 2 Alka Albert Notes Date Note Type Note Provider Name and Address Organization Details Recorded Time 05/29/2025 text/html This patient is a 39-year-old female who presents for colposcopic examination. The procedure was explained to the patient in detail. She understands the procedure. She understands the risks, benefits, and alternatives. She has completed the informed consent process and is ready to proceed. Yoav Lane MD [address], [place], [address], [facility] 05/29/2025 15:51:01 OBGyn Episode No OBEpisode recorded.
--- OUTSIDE RECORDS SUMMARY | 2025-06-15 14:03 | XMS_ITS | Continuity of Care Document ---
Author Organization [facility] Address [address] [place] [address] Care Team Providers Care Machine Stuffer Name Role Phone BRUCE NOEL Primary Care Provider Assessment Encounter Date Assessment Date Assessment LastModified by Organization Details LastModified Time 05/10/2025 05/10/2025 Annual gynecological exam performed. Patient will come back in a year unless there are new symptoms. Not available 05/10/2025 16:03:18 Plan of Treatment Reminders Order Date Submit Date Provider Last Modified By Organization Details Last Modified Time Details Appointments None recorded. Lab pap, IG + HR HPV - HPV regardless but if HPV is positive need subtyping 16,18/[address]/gc/trich 2024 025 [facility] (Lab), [address], [place], [address], 15:48:22 Referral None recorded. Procedures None recorded. Surgeries None recorded. Imaging MAMMO, screening, digital, bilateral 2024 025 [facility], [address], [place], [address], 04:03:24 Medication Orders None recorded. Patient TargetsNo targets recorded. Patient InstructionsNo instructions recorded. Reason for Referral None Reported. Results Created Date Observation Date Name Description Value Unit Range Abnormal Flag Note LastModifiedBy Organization Detail LastModifiedTime 05/10/20 25 05/10/2025 IMAGE GUIDE D PAP [...] ry: Hormo anisha (if appli cable ): SUGBALDOMERO STED FOLLO W-UP: Follo w up as warra nted, based on curre nt guide lines and indiv idual patie nt consi derat ions. Not Available [facility] (Lab) [address], [place], [address], 05/16/2025 15:48:22 05/10/20 25 05/10/2025 CT/GC AND TRICH OMONA S VAGIN HANG (RRNA ), THINP REP VIAL CT/GC and trichomonas vaginalis (rrna), thinprep SEE RESULT S BELOW negati ve CHLAM YDIA TRACH OMATI S, PCR: Negat mickey NEISS ERIA GONOR RHOEA E, PCR: Negat mickey TRICH OMONA S VAGIN HANG RIBOS OMAL RNA (RRNA ): Negat mickey Not Available [facility] (Lab) [address], [place], [address], 05/16/2025 15:48:22 Result Notes None recorded. Problems Name Problem SNOMED Code Status Onset Date Resolution Date Notes Provider Name and Address Organization Details Recorded Time Mixed anxiety and depressive disorder 777854954 Active 2023 Stephany unger [facility] 4 16:26:23 Problem Notes None recorded. Procedures Surgical History Date Name Laterality Status Provider Name and Address Organization Details Recorded Time [address] Yoav [address] MD [address], [place], [address], [facility] 5 15:49:34 2024 Colposcopy completed [facility] 5 12:05:30 2024 Colposcopy completed Ailyn [facility] 5 12:06:13 2024 Date of Last Pap Smear completed Ailyn [facility] 5 12:04:50 2013 loop electrosurgical excision procedure of cervix completed Genovvea Boogiepradeep [facility] 3 12:08:49 2013 Colposcopy completed Stephany Sullivan [facility] 4 16:29:19 2005 Ndl oculoelectromyography 1+ completed Genoveva Macedo [facility] 3 12:09:48 2003 extraction of wisdom tooth completed Stephany Sullivan [facility] 4 16:29:32 Imaging Results None recorded. Procedure Notes None recorded. Medical Equipment None Reported. Allergies Allergen ID Allergen Name Allergen Category Reaction Reaction Severity Criticality Documentation Date Start Date Code Code System Note Provider Name and Address Organization Details Recorded Time latex environme nt,medica tion Not available Not available Not available 11/21/2022 83039 91 RxNorm Genoveva asif null, [facility] 3 12:01:03 56690 Mobic medicatio n Not available Not available Not available 11/21/2022 99335 9 RxNorm Genoveva Boogiemiladis asif null, [facility] 3 12:01:09 73401 viloxazin e hydrochlo ride medicatio n headache severe Not available 05/10/20252023 98425 3 RxNorm Zahraa Narayan [facility], [facility] 5 15:54:00 Medications Name Sig [...] Not Available Not Available Not Available vitamin G48-kblmp acid injection solution Take by injection route. [...] Not Available Not Available Not Available Vitals None Recorded Social History Question Answer Notes LastModified by Organizat ion Details LastModified Time Tobacco Smoking Status Never Smoker Genoveva Macedo [facility] 11/21/2022 12:08:12 Do You Have An Advance Directive? No [email or web address] Information n ot available 05/10/2025 How Many Years Have You Consumed Alcohol? 20 [email or web address] Information not available 11/24/2023 Are You Blind Or Do You Have Difficulty Seeing? No [email or web address] Information n ot available 11/24/2023 What Is Your Level Of Caffeine Consumption? Moderate lzasqwtv58 Information not available 11/24/2023 How Much Tobacco Do You Chew? None [email or web address] Information not available 11/24/2023 In The 14 [...] Do You Have Serious Difficulty Hearing? No lwvlrpew09 Information not available 11/24/2023 What Type Of Diet Are You Following? REGULAR Information n ot available 11/24/2023 Which Illicit Or Recreational Drugs Have You Used? Marijuana Nightly Information not available 11/21/2022 What Is The Highest Grade Or Level Of School You Have Completed Or The Highest Degree You Have Received? [id number] [email or web address] Information not available 11/24/2023 Are There Any Guns Present In Your Home? Yes [email or web address] Information not available 11/24/2023 Have You Ever Been Counseled For Unhealthy Alcohol Use? No Information not available 11/21/2022 Do You Use Protection During Sex? No [email or web address] Information not available 11/24/2023 Do You Use Your Seat Belt Or Car Seat Routinely? Yes jlankqjy34 Information not available 11/24/2023 Do You Have Smoke And Carbon Monoxide Detectors In Your Home? Yes oxidbecy36 Information not available 11/24/2023 At What Age Did You Start Smoking Tobacco? 16 tekbwexl62 Information not available 11/24/2023 How Much Tobacco Do You Smoke? No fvotoqyn38 Information not available 11/24/2023 Do You Use Sunscreen Routinely? Yes [email or web address] Information not available 11/24/2023 Has Tobacco Cessation Counseling Been Provided? No Information not available 11/21/2022 How Many Years Have You Smoked Tobacco? 0 [email or web address] Information not available 11/24/2023 Have You Used IV Drugs? No Information not available 11/21/2022 Do You Have Difficulty Walking Or Climbing Stairs? No [email or web address] Information not available 11/24/2023 Sex: Female Functional Status Question Answer Note LastModified by Organizat ion Details LastModified Time Do you use any illicit or recreational drugs? No [email or web address] Information not available 11/24/2023 Do you or have you ever used any other forms of tobacco or nicotine? No Information not available 11/21/2022 What is your level of alcohol consumption? Occasional Information not available 11/21/2022 Are you able to walk independently without assistance or assistive devices? YESWOREST tfdzabr99 Information not available 05/10/2025 Are you able to care for yourself independently? 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 No Information not available 11/24/2023 What is your exercise level? Moderate [email or web address] Information not available 11/24/2023 Mental Status Question Answer Note LastModified by Organization D etails LastModified Time Do you feel stressed (tense, restless, nervous, or anxious, or unable to sleep at night)? [id number] [email or web address] Information not available 11/24/2023 Family History Relationship Description Onset Age of this Age Resolved Age Notes LastModified by Organization Details LastModified Time Mother Hypercholest erolemia vschroedter Not available 11/02 12:05:31 Mother Hypertensive disorder vschroedter Not available 11/02 12:05:44 Mother Psychotic disorder [email or web address] Not available 2024 11:24:33 Mother Disorder of thyroid gland vschroedter Not available 11/02 12:07:25 Sister Hypercholest erolemia vschroedter Not available 11/02 12:05:53 Sister Infertile [email or web address] Not availabl e 05/29/2025 11:24:33 Sister Psychotic disorder [email or web address] Not available 2024 11:24:33 Sister Disorder of thyroid gland vschroedter Not available 11/02 12:07:25 Maternal Grandmother Psychotic disorder [email or web address] Not available 2024 11:24:33 Maternal Grandmother Disorder of thyroid gland vschroedter Not available 11/02 12:07:25 Maternal Uncle Psychotic disorder [email or web address] Not available 2024 11:24:33 Medical History Condition [...] ICD10 Code Diagnosis IMO Codes Diagnosis Note [id number] NICO Santos [place] [address] [address] 05/10/2025 15:51:55 05/11/2025 10:21:30 Gynecologic examination 26113572 Z01.020 7268126 WWEB - declinedPa p - done todaySTI screen [...] consult advised. Questions answered. Screening mammography 24 451153 Z12.31 8890832547 Venereal d isease screening 585811603 Z11.3 386707 Health Concerns Section Related Observation LastModified by Organization Detai ls LastModified Time None Recorded Concern Status LastModified by Organization Details LastModified Time None Recorded Payers Encounter Date Sequence Insurance Name Policy Number Policy Patiño Covered Member ID Patiño Member ID Guarantor Name 05/10/2025 1 [facility] [id number] Bert Albert [id number] 2 Alka Albert Notes Date Note Type Note Provider Name and Address Organization Details Recorded Time 5 text/html Annual GYNReported by PatientGenitourinary symptomsFor [...] use, andencourage regular mammograms starting age 40.39yo C7satagft pap 11/2023 : nilm, HPV (-)h/o LEEP 2013 NICO Santos [address], [place], [address], [facility] 05/11/2025 10:18:41 OBGyn Episode No OBEpisode recorded.
== END 2025-06-15 13:23 | disposition home or self-care (01) ==
LOC: CHSIMG 13:23
PROVIDERS: PCP Physician Assistant; Visit Provider Nurse Practitioner
DX: Z12.31 Encounter for screening mammogram for malignant neoplasm of breast (principal)
CPT/HCPCS: 77063; 77067